=== PATIENT | male | born 1945 | race Caucasian/White ===

== ENCOUNTER 2017-11-07 09:57 | Day surgery (SDC) | payer BC, OTHER ==
[2017-11-04 08:51] VITALS: BMI 26.1
[~2017-11-07 09:57] MED LIST: LACTATED RINGERS 1,000 ML IV SCH; LIDOCAINE 1% 20 ML VIAL (10MG/ML) FOR IV START INTRADERMA PRN
[2017-11-07 10:23] VITALS: RESP 16; TEMP 98
[2017-11-07] MEDS ORDERED: PROPOFOL 10 MG/ML 20 ML VIAL IV ONE (11:09)
[2017-11-07] MEDS ORDERED: LIDOCAINE 1% INJ 10MG/ML (20 ML MDV) ONE (11:09)
[2017-11-07] MEDS ORDERED: MIDAZOLAM 2 MG/2 ML VIAL ONE (11:09)
[2017-11-07] MEDS ORDERED: fentaNYL (PF) 50 MCG/ML 2 ML AMP ONE (11:09)
[2017-11-07 11:44] VITALS: PULSE 65
--- NOTE | 2017-11-07 11:45 | P.PCN ---
Date of Procedure: 11/07/17 Procedure(s) Performed: Procedure: Total colonoscopy. Preoperative diagnosis: Screening for neoplasia. Postoperative diagnosis: Sigmoid diverticulosis with no evidence of acute diverticulitis, strictures, polyps or cancer. Preparation: HalfLytely prep. Sedation: Was provided by anesthesia. Brief clinical history: The patient is a 71-year-old male who is scheduled for this evaluation for screening for neoplasia. He had two prior exams, the last was around 6 or 7 years ago. He believes he had polyps removed on his last exam. He has no abdominal complaints, bleeding or anemia. Procedure: With the patient on his left lateral decubitus position and after informed consent and adequate sedation, the perianal area was inspected and it did not show any fissures or fistulas. There were no masses felt on digital rectal examination. The Olympus CFQ 160L video colonoscope was then inserted in the rectum in the usual fashion and advanced to the cecum. There were several diverticular orifices seen scattered in the sigmoid with no evidence of acute diverticulitis or strictures. No polyps or tumors were seen. I retroflexed the endoscope in the rectum before the endoscope was withdrawn. The patient tolerated the procedure well. Plan: The patient was reassured. Discussed dietary measures. He will follow up with you as planned and I recommended repeat exam in 5 years.
[2017-11-07 12:03] VITALS: BP 143/82
== END 2017-11-07 12:52 | disposition home or self-care (01) ==
LOC: ORWHC2ENDO 09:57
DX: Z12.11 Encounter for screening for malignant neoplasm of colon (principal); K57.30 Diverticulosis of large intestine without perforation or abscess without bleeding; I10 Essential (primary) hypertension; E78.5 Hyperlipidemia, unspecified; M19.90 Unspecified osteoarthritis, unspecified site; E89.0 Postprocedural hypothyroidism; N40.0 Benign prostatic hyperplasia without lower urinary tract symptoms; Z79.82 Long term (current) use of aspirin; Z79.899 Other long term (current) drug therapy; Z96.612 Presence of left artificial shoulder joint
CPT/HCPCS: G0121; J2250; J2001; J3010; J2704

== ENCOUNTER → 2018-01-28 | Outpatient (CLI) | payer BC, OTHER ==
--- NOTE | 2018-01-29 16:28 | XR ---
EXAMINATION TYPE: XR chest 2V DATE OF EXAM: 01/28/2018 COMPARISON: None HISTORY: 72-year-old male follow-up pneumonia TECHNIQUE: PA and lateral views FINDINGS: Heart normal size. Aorta and pulmonary vasculature within normal limits. Mild interstitial prominence . Old healed fracture deformity of the right clavicular shaft. No consolidation or pleural effusion. Partially visualized reverse left shoulder arthroplasty. IMPRESSION: Chronic-appearing changes without acute cardiopulmonary process.
== END ==
LOC: RADXRMAIN 09:50
PROVIDERS: ATTEND Family Medicine
DX: J18.9 Pneumonia, unspecified organism (principal)
CPT/HCPCS: 71046

== ENCOUNTER → 2018-02-20 | Outpatient (CLI) | payer BC ==
--- NOTE | 2018-02-20 11:47 | US ---
EXAMINATION TYPE: US carotid duplex BILAT DATE OF EXAM: 02/20/2018 COMPARISON: US 04/06/2016 CLINICAL HISTORY: G45.9 Transient Ischemic Attack, R94.31 abnormal. EXAM MEASUREMENTS: RIGHT: Peak Systolic Velocity (PSV) cm/sec ----- Right CCA: 85.0 ----- Right ICA: 204.7 ----- Right ECA: 82.2 ICA/CCA ratio: 2.4 RIGHT: End Diastole cm/sec ----- Right CCA: 29.3 ----- Right ICA: 87.8 ----- Right ECA: 19.4 LEFT: Peak Systolic Velocity (PSV) cm/sec ----- Left CCA: 87.7 ----- Left ICA: 186.0 ----- Left ECA: 43.5 ICA/CCA ratio: 2.1 LEFT: End Diastole cm/sec ----- Left CCA: 30.4 ----- Left ICA: 73.8 ----- Left ECA: 13.7 VERTEBRALS (direction of flow): Right Vertebral: Antegrade Left Vertebral: Antegrade Rhythm: Arrhythmia Bilateral soft and calcified plaque. Bilateral tortuous ICA's. Increased flow bilateral ICA's IMPRESSION: 1. Bilateral plaque as noted with estimated diameter reduction of 50-69% bilaterally. Criteria for Assigning % of Stenosis / Diameter reduction (Estimation based on the indirect measurements of the internal carotid artery velocities (ICA PSV). 1. Normal (no stenosis)=ICA PSV < 125 cm/s: ratio < 2.0: ICA EDV<40 cm/s. 2. Less than 50% stenosis=ICA PSV < 125 cm/s: ratio < 2.0: ICA EDV<40 cm/s. 3. 50 to 69% stenosis=ICA PSV of 125 to 230 cm/s: ration 2.0 ? 4.0: ICA EDV 40-100 cm/s. 4. Greater than 70% stenosis to near occlusion= ICA PSV > 230 cm/s: ratio > 4.0: ICA EDV > 100 cm/s. 5. Near occlusion= ICA PSV velocities may be low or undetectable: variable ratio and ICA EDV. 6. Total occlusion=unable to detect flow.
--- NOTE | 2018-02-21 07:42 | ECHOF ---
Referral Reason:G45.9 Transient Ischemic Attack, R94.31 abnormal MEASUREMENTS -------- HEIGHT: 185.4 cm WEIGHT: 90.7 kg BP: 110/55 IVSd: 1.3 cm (0.6 - 1.1) LVIDd: 5.6 cm (3.9 - 5.3) LVPWd: 1.3 cm (0.6 - 1.1) IVSs: 1.7 cm LVIDs: 3.6 cm LVPWs: 1.7 cm LAESV Index (A-L): 36.16 ml/m Ao Diam: 3.7 cm (2.0 - 3.7) AV Cusp: 1.9 cm (1.5 - 2.6) LA Diam: 3.5 cm (2.7 - 3.8) EPSS: 0.6 cm MV E Zach: 0.57 m/s MV DecT: 388 ms MV A Zach: 0.80 m/s MV E/A Ratio: 0.72 RAP: 5.00 mmHg RVSP: 30.02 mmHg MV EF SLOPE: 113.62 mm/s (70 - 150) MV EXCURSION: 1.93 cm (> 18.000) FINDINGS -------- Sinus rhythm with extra systolic beats. This was a technically adequate study. The left ventricular size is normal. There is mild concentric left ventricular hypertrophy. Overa ll left ventricular systolic function is low-normal with, an EF between 50 - 55 %. The right ventricle is normal in size and function. LA is moderately dilated 34-39 ml/m2 The right atrium is normal in size. Aortic valve is trileaflet and is mildly thickened. Trace amount of aortic regurgitation. There is no evidence of aortic stenosis. The mitral valve leaflets are mildly thickened. Mild mitral annular calcification present. There is trace to mild mitral regurgitation. Trace tricuspid regurgitation present. Right ventricular systolic pressure is normal at < 35 mmHg. There is no evidence of pulmonary hypertension. The pulmonic valve was not well visualized. The aortic root size is normal. Normal inferior vena cava with normal inspiratory collapse consistent with estimated right atrial pre ssure of 5 mmHg. There is no pericardial effusion. CONCLUSIONS -------- 1. Sinus rhythm with extra systolic beats. 2. This was a technically adequate study. 3. The left ventricular size is normal. 4. There is mild concentric left ventricular hypertrophy. 5. Overall left ventricular systolic function is low-normal with, an EF between 50 - 55 %. 6. LA is moderately dilated 34-39 ml/m2 7. Aortic valve is trileaflet and is mildly thickened. 8. Trace amount of aortic regurgitation. 9. The mitral valve leaflets are mildly thickened. 10. Mild mitral annular calcification present. 11. There is trace to mild mitral regurgitation. 12. Trace tricuspid regurgitation present. 13. Right ventricular systolic pressure is normal at < 35 mmHg. 14. There is no evidence of pulmonary hypertension. 15. The pulmonic valve was not well visualized. 16. The aortic root size is normal. 17. There is no pericardial effusion. COMPOUNDING SCALER: Matthias Hair RDCS
--- NOTE | 2018-02-21 07:46 | ECHOS ---
STRESS ECHOCARDIOGRAM DATE OF SERVICE: 02/20/2018 INDICATION OF THE STUDY: Chest discomfort. MEDICATIONS: BASELINE HEART RATE: 70 BASELINE BLOOD PRESSURE: 110/55 MAXIMUM HEART RATE: 128 MAXIMUM BLOOD PRESSURE: 177/81 85% MPHR: 124 100% MPHR: 146 METS: 10.3 MAXIMUM STAGE REACHED: III TOTAL EXERCISE TIME: 9 minutes CLINICAL INFORMATION: STRESS DATA: Pretesting physical examination showed a heart rate of 70, pressure is 110/55 mmHg. Baseline EKG showed sinus mechanism. The patient exercised on the treadmill according to Sarkis protocol for a total of 9 minutes and achieved 10.3 METs. Max heart rate was 128, which is about 87% of maximum predicted heart rate. Maximum blood pressure was 177/81 mmHg. Clinically, the patient did not have any symptoms of chest pain or discomfort during the testing or in the recovery. The EKG did not show any significant ST or T-wave abnormalities consistent with ischemia or meeting the criteria for ischemia. The patient did have frequent premature ventricular contraction in response to exercise. ECHOCARDIOGRAM: An echocardiogram from parasternal long axis view, parasternal short axis view, apical 4 chambers and apical 2 chambers view were obtained as the baseline images, at the peak of the heart rate as well as on recovery. The echocardiogram images showed good contractility in the left ventricular wall segments without any evidence of wall motion abnormalities consistent with ischemia. CONCLUSION: 1. Excellent exercise capacity. 2. The patient did not have any chest discomfort in response to exercise. 3. Normal EKG in response to exercise beside frequent premature ventricular contraction. 4. Normal echocardiogram in response to exercise without any evidence of wall motion abnormalities consistent with ischemia. MMODL / IJN: [id number] /
== END | disposition home or self-care (01) ==
LOC: RADUSMAIN 08:51
PROVIDERS: ATTEND Family Medicine
DX: I65.23 Occlusion and stenosis of bilateral carotid arteries (principal); I51.7 Cardiomegaly; I10 Essential (primary) hypertension
CPT/HCPCS: 93306; 93351; 93880

== ENCOUNTER 2018-05-02 00:53 | Inpatient (IN) | payer OTHER, BC, MEDICARE ==
[2018-05-02] MEDS ORDERED: MORPHINE SULFATE 2 MG/ML SYRINGE IVP STA (02:04)
[2018-05-02] MEDS ORDERED: SODIUM CHLORIDE 0.9% 1,000 ML IV STA (02:04)
[2018-05-02] MEDS ORDERED: ONDANSETRON 4 MG/2 ML VIAL IVP STA (02:04)
[2018-05-02 02:16] LABS: Basophils % (A) 0 %; Eosinophils # (A) 0.1 k/uL (0-0.7); Eosinophils % (A) 1 %; HCT 47.5 % (39.0-53.0); Lymphocytes # (A) 0.9 k/uL (1.0-4.8); Lymphocytes % (A) 11 %; MCHC 33.6 g/dL (31.0-37.0); MCV 89.2 fL (80.0-100.0); Mean Platelet Volume 7.6; Monocytes # (A) 0.2 k/uL (0-1.0); Monocytes % (A) 3 %; Neutrophils # (A) 6.8 k/uL (1.3-7.7); Neutrophils % (A) 84 %; Platelet Count 215 k/uL (150-450); RBC 5.33 m/uL (4.30-5.90); RDW 12.6 % (11.5-15.5)
[2018-05-02 02:27] LABS: ALT 30 U/L (21-72); AST 28 U/L (17-59); Albumin 4.5 g/dL (3.5-5.0); Alkaline Phosphatase 82 U/L (38-126); Amylase 98 U/L (30-110); Anion Gap 8 mmol/L; Blood Urea Nitrogen 18 mg/dL (9-20); Carbon Dioxide 28 mmol/L (22-30); Chloride 104 mmol/L (98-107); Glucose 116 mg/dL (74-99); Lipase 58 U/L (23-300); Potassium 4.4 mmol/L (3.5-5.1); Sodium 140 mmol/L (137-145); Total Bilirubin 0.7 mg/dL (0.2-1.3); Total Protein 7.3 g/dL (6.3-8.2)
[2018-05-02 02:46] LABS: Amorphous Sediment,Urine Rare /hpf; Appearance,Urine Clear (Clear); Bacteria,Urine Rare /hpf; Bilirubin,Urine Negative (Negative); Blood,Urine Negative (Negative); Color,Urine Yellow; Glucose,Urine (UA) Negative (Negative); Ketones,Urine 1+ (Negative); Leukocyte Esterase,Urine Negative (Negative); Mucus,Urine Occasional /hpf; Nitrite,Urine Negative (Negative); Protein,Urine 1+ (Negative); RBC,Urine 1 /hpf (0-5); Specific Gravity,Urine 1.021 (1.001-1.035); Urobilinogen,Urine <2.0 mg/dL (<2.0); WBC,Urine 1 /hpf (0-5)
--- NOTE | 2018-05-02 03:11 | CT ---
EXAMINATION TYPE: CT abdomen pelvis w con DATE OF EXAM: 05/02/2018 COMPARISON: 08/24/2011 HISTORY: Prior on 2010, diffuse abd pain and bloating history of prior obstruction CT DLP: 996.30 mGycm Automated exposure control for dose reduction was used. TECHNIQUE: Helical acquisition of images was performed from the lung bases through the pelvis. CONTRAST: Performed without Oral Contrast and with IV Contrast, patient injected with 100 mL of Isovue 300. FINDINGS: Lung bases are clear. There is no pleural effusion. Heart size is normal. Liver and spleen appear normal. Bile ducts are not dilated. Gallbladder appears normal. There is no p ancreatic mass. There is no adrenal mass. Kidneys have normal size and contour. There is no hydronephrosis. There is 3 cm cortical cyst lateral right kidney. There is no retroperitoneal adenopathy. There are multiple mildly dilated loops of air and fluid-filled small bowel. These measure up to 3.3 cm. Appendix is not seen. There is no sign of appendicitis. Bladder distends smoothly. There is no pelvic mass. There are multiple sigmoid diverticula. There is minimal fat stranding around the proximal sigmoid colon. There is no ascites. There is no sign of karla e air. 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 IMPRESSION: THERE IS SIGMOID DIVERTICULOSIS. THERE IS EVIDENCE OF MINIMAL DIVERTICULITIS IN THE PROXIMAL SIGMOID COLON. THERE ARE MILDLY DILATED SMALL BOWEL LOOPS WITHOUT A TRANSITION POINT and THIS IS CONSISTENT WITH ILE US. PARTIAL MECHANICAL OBSTRUCTION IS NOT ENTIRELY EXCLUDED. Abnormalities appear new compared to last exam. Right renal cyst is increased compared to old exam.
--- NOTE | 2018-05-02 03:33 | ED ---
General Adult HPI - General Source: patient, RN notes reviewed Mode of arrival: ambulatory Limitations: no limitations <Liu Orozco - Last Filed: 05/02/18 03:53> <Chivo Leary - Last Filed: 05/02/18 04:10> - General Chief complaint: Abdominal Pain Stated complaint: ABD PAIN,OBSTRUCTION Time Seen by Provider: 05/02/18 01:40 - History of Present Illness Initial comments: 72-year-old male presents to the emergency department for a chief complaint of abdominal pain times one day. Patient states he got home from work and went to make dinner when he noticed pain in the middle of his abdomen. Patient states his pain is consistent with previous bowel obstructions. Patient states he has had multiple bowel obstructions in the past. Patient made himself vomit about 10 times to try to decrease the pain in the abdomen. Patient last had a bowel movement earlier today. Patient has no other complaints at this time including shortness of breath, chest pain, abdominal pain, nausea or vomiting, headache, or visual changes. (Liu Orozco) - Related Data Home Medications Medication Instructions Recorded Confirmed Aspirin EC [Ecotrin Low Dose] 81 mg PO HS 06/08/16 11/07/17 Dutasteride [Avodart] 0.5 mg PO DAILY 06/08/16 11/07/17 Levothyroxine Sodium [Synthroid] 175 mcg PO DAILY 06/08/16 11/07/17 Losartan Potassium [Cozaar] 100 mg PO DAILY 06/08/16 11/07/17 Multivitamin/Iron/Folic Acid 2 tab PO DAILY 06/08/16 11/07/17 [Centrum Complete Multivit Tab] Pravastatin Sodium 20 mg PO HS 06/08/16 11/07/17 Tamsulosin HCl 0.4 mg PO DAILY 06/08/16 11/07/17 amLODIPine BESYLATE [Norvasc] 5 mg PO DAILY 06/08/16 11/07/17 Allergies Allergy/AdvReac Type Severity Reaction Status Date / Time No Known Allergies Allergy Verified 11/07/17 10:17 Review of Systems ROS Other: All systems not noted in ROS Statement are negative. <Liu Orozco - Last Filed: 05/02/18 03:53> ROS Other: All systems not noted in ROS Statement are negative. <Chivo Leary - Last Filed: 05/02/18 04:10> ROS Statement: Those systems with pertinent positive or pertinent negative responses have been documented in the HPI. Past Medical History Past Medical History: Hyperlipidemia, Hypertension, Osteoarthritis (OA), Thyroid Disorder History of Any Multi-Drug Resistant Organisms: None Reported Past Surgical History: Appendectomy Additional Past Surgical History / Comment(s): thyroidectomy Past Anesthesia/Blood Transfusion Reactions: No Reported Reaction Past Psychological History: No Psychological Hx Reported Smoking Status: Never smoker Past Alcohol Use History: None Reported Past Drug Use History: None Reported - Past Family History Mother Family Medical History: No Reported History <Liu Orozco - Last Filed: 05/02/18 03:53> General Exam Limitations: no limitations General appearance: alert, in no apparent distress Head exam: Present: atraumatic, normocephalic, normal inspection Eye exam: Present: normal appearance. Absent: scleral icterus, conjunctival injection ENT exam: Present: normal exam, mucous membranes moist Neck exam: Present: normal inspection, full ROM. Absent: tenderness, meningismus, lymphadenopathy Respiratory exam: Present: normal lung sounds bilaterally. Absent: respiratory distress, wheezes, rales, rhonchi, stridor Cardiovascular Exam: Present: regular rate, normal rhythm, normal heart sounds. Absent: systolic murmur, diastolic murmur, rubs, gallop, clicks GI/Abdominal exam: Present: soft, tenderness (tenderness around the umbilicus), diminished bowel sounds. Absent: distended, guarding, rebound, rigid, pulsatile mass, hernia Neurological exam: Present: alert, oriented X3, CN II-XII intact Psychiatric exam: Present: normal affect, normal mood Skin exam: Present: warm, dry, intact, normal color. Absent: rash <Liu Orozco - Last Filed: 05/02/18 03:53> Vital Signs 05/02/18 01:15 Temperature 97.1 F L Pulse Rate 84 Respiratory 16 Rate Blood Pressure 132/90 O2 Sat by Pulse 97 Oximetry EKG Findings - EKG Comments: EKG Findings:: Normal sinus rhythm, ventricular rate 90, [place] interval 188, QRS ratio [address] elevation or depression <Liu Orozco - Last Filed: 05/02/18 03:53> Medical Decision Making - Lab Data Result diagrams: 05/02/18 01:26 05/02/18 01:26 <Liu Orozco - Last Filed: 05/02/18 03:53> - Lab Data Result diagrams: 05/02/18 01:26 05/02/18 01:26 <Chivo Leary - Last Filed: 05/02/18 04:10> - Medical Decision Making 72-year-old male presents to the emergency department for a chief complaint of abdominal pain times one day. Patient states pain is consistent with past bowel obstructions. Patient made himself vomit today to try to decrease the pain. At this time patient denies nausea. Patient afebrile and denies any fevers at home. On exam patient has mid abdominal tenderness around umbilicus. CBC and CMP unremarkable. Urine shows no evidence of infection or blood. CT shows evidence of minimal diverticulitis in the proximal sigmoid colon. There are mildly dilated small bowel loops consistent with ileus. Partial mechanical obstruction not entirely excluded. Patient will be admitted to the hospital for further management and pain control. Surgery consulted. Patient will be treated with Unasyn for the diverticulitis. (Liu Orozco) Patient reevaluated by myself, Dr. Leary. Patient resting comfortably in bed. Abdomen is soft with mild diffuse discomfort. Patient updated and results and plan. Case was discussed in detail with practitioner Lee, covering for Dr. Cheng, who will admit. Consult for surgical call. I did review and agree with PAs findings. This includes all diagnostic interpretation and treatment plan. (Chivo Leary) - Lab Data Lab Results 05/02/18 05/02/18 05/02/18 Range/Units 01:26 01:26 02:15 WBC 8.0 (3.8-10.6) k/uL RBC 5.33 (4.30-5.90) m/uL Hgb 16.0 (13.0-17.5) gm/dL Hct 47.5 (39.0-53.0) % MCV 89.2 (80.0-100.0) fL MCH 30.0 (25.0-35.0) pg MCHC 33.6 (31.0-37.0) g/dL RDW 12.6 (11.5-15.5) % Plt Count 215 (150-450) k/uL Neutrophils % 84 % Lymphocytes % 11 % Monocytes % 3 % Eosinophils % 1 % Basophils % 0 % Neutrophils # 6.8 (1.3-7.7) k/uL Lymphocytes # 0.9 L (1.0-4.8) k/uL Monocytes # 0.2 (0-1.0) k/uL Eosinophils # 0.1 (0-0.7) k/uL Basophils # 0.0 (0-0.2) k/uL Sodium 140 (137-145) mmol/L Potassium 4.4 (3.5-5.1) mmol/L Chloride 104 (98-107) mmol/L Carbon Dioxide 28 (22-30) mmol/L Anion Gap 8 mmol/L BUN 18 (9-20) mg/dL Creatinine 0.70 (0.66-1.25) mg/dL Est GFR (CKD-EPI)AfAm >90 (>60 ml/min/1.73 sqM) Est GFR (CKD-EPI)NonAf >90 (>60 ml/min/1.73 sqM) Glucose 116 H (74-99) mg/dL Calcium 10.0 (8.4-10.2) mg/dL Total Bilirubin 0.7 (0.2-1.3) mg/dL AST 28 (17-59) U/L ALT 30 (21-72) U/L Alkaline Phosphatase 82 (38-126) U/L Total Protein 7.3 (6.3-8.2) g/dL Albumin 4.5 (3.5-5.0) g/dL Amylase 98 (30-110) U/L Lipase 58 (23-300) U/L Urine Color Yellow Urine Appearance Clear (Clear) Urine pH 7.0 (5.0-8.0) Ur Specific [place] 1.021 (1.001-1.035) Urine Protein 1+ H (Negative) Urine Glucose (UA) Negative (Negative) Urine Ketones 1+ H (Negative) Urine Blood Negative (Negative) Urine Nitrite Negative (Negative) Urine Bilirubin Negative (Negative) Urine Urobilinogen <2.0 (<2.0) mg/dL Ur Leukocyte Esterase Negative (Negative) Urine RBC 1 (0-5) /hpf Urine WBC 1 (0-5) /hpf Amorphous Sediment Rare H (None) /hpf Urine Bacteria Rare H (None) /hpf Urine Mucus Occasional H (None) /hpf Disposition Is patient prescribed a controlled substance at d/c from ED?: No Time of Disposition: 03:56 <Liu Orozco - Last Filed: 05/02/18 03:53> <Chivo Leary - Last Filed: 05/02/18 04:10> Clinical Impression: Ileus, Diverticulitis Disposition: ADMITTED IP TO THIS HOSP Condition: Good Referrals: Julian Cheng MD [Primary Care Provider] - 1-2 days
[2018-05-02] MEDS ORDERED: NALOXONE 0.4 MG/ML 1 ML VIAL IV PRN (04:16)
[2018-05-02] MEDS ORDERED: ONDANSETRON 4 MG/2 ML VIAL IVP PRN (04:16)
[2018-05-02] MEDS: AMPICILLIN-SULBACTAM 3 GM in SODIUM CHLORIDE 0.9% 100 ML IVPB SCH ×4 (04:47→23:59)
[2018-05-02] MEDS: SODIUM CHLORIDE 0.9% 1,000 ML IV SCH ×3 (04:47→22:13)
[2018-05-02] MEDS: LEVOTHYROXINE 75 MCG TAB PO SCH (06:25)
[2018-05-02] MEDS: LEVOTHYROXINE 100 MCG TAB PO SCH (06:25)
[2018-05-02] MEDS: PANTOPRAZOLE 40 MG/10 ML VIAL IVP SCH ×2 (07:22→07:49)
[2018-05-02] MEDS: LOSARTAN 50 MG TAB PO SCH (07:53)
[2018-05-02] MEDS: TAMSULOSIN 0.4 MG CAP.ER.24H PO SCH (07:53)
[2018-05-02] MEDS: amLODIPine 5 MG TAB PO SCH (07:53)
[2018-05-02] MEDS: FINASTERIDE 5 MG TAB PO SCH (07:56)
[2018-05-02] MEDS ORDERED: FINASTERIDE 5 MG TAB PO SCH (09:00)
[2018-05-02] MEDS: MORPHINE SULFATE 4 MG/ML SYRINGE IV PRN ×3 (10:41→19:43)
[2018-05-02] MEDS: MULTIVITAMINS, THERA 1 EACH TAB PO SCH (11:03)
[2018-05-02] MEDS ORDERED: ACETAMINOPHEN IV (For NPO) 1,000 MG in EMPTY BAG 1 BAG IVPB ONE (11:05)
--- NOTE | 2018-05-02 11:26 | P.GSCN ---
History of Present Illness Consult date: 05/02/18 Reason for Consult: Abdominal pain History of present illness: 72-year-old male presented to the emergency room on the day of admission with a chief complaint of developing abdominal bloating diffuse abdominal pain nausea vomiting abdominal cramping. Patient states he has had prior episodes where he has been treated for a bowel obstruction. He stated the symptoms felt similar. CAT scan done of the abdomen and pelvis with contrast on admission in summary did report indicated no pelvic mass. No ascites no free air sigmoid diverticulosis evidence of minimal diverticulitis in the proximal sigmoid colon. Mildly dilated small bowel loops without a transition point consistent with an ileus. Partial mechanical obstruction not entirely excluded. Patient did have a colonoscopy done in November 2017. Reviewing the report diverticulitis scattered throughout the sigmoid with no evidence of acute diverticulitis or strictures. Patient states he was seen by a dietitian and has adhered to a recommendations for addressing diverticulitis disease patient currently resting in bed states he has abdominal discomfort the abdomen is mildly distended with hypo-angel states he felt a nausea sensation not passing gas not belching states did have a bowel movement yesterday no blood noted in stool Prior surgical history includes appendectomy, hernia repair lysis of adhesions. Review of Systems Essentially unremarkable except as mentioned in the present illness Past Medical History Past Medical History: Hyperlipidemia, Hypertension, Osteoarthritis (OA), Thyroid Disorder History of Any Multi-Drug Resistant Organisms: None Reported Past Surgical History: Appendectomy Additional Past Surgical History / Comment(s): thyroidectomy Past Anesthesia/Blood Transfusion Reactions: No Reported Reaction Past Psychological History: No Psychological Hx Reported Smoking Status: Never smoker Past Alcohol Use History: None Reported Past Drug Use History: None Reported - Past Family History Mother Family Medical History: No Reported History Medications and Allergies Home Medications Medication Instructions Recorded Confirmed Type Aspirin EC [Ecotrin Low Dose] 81 mg PO HS 06/08/16 05/02/18 History Dutasteride [Avodart] 0.5 mg PO DAILY 06/08/16 05/02/18 History Levothyroxine Sodium [Synthroid] 175 mcg PO DAILY 06/08/16 05/02/18 History Losartan Potassium [Cozaar] 100 mg PO DAILY 06/08/16 05/02/18 History Multivitamin/Iron/Folic Acid 2 tab PO DAILY 06/08/16 05/02/18 History [Centrum Complete Multivit Tab] Pravastatin Sodium 20 mg PO HS 06/08/16 05/02/18 History Tamsulosin HCl 0.4 mg PO DAILY 06/08/16 05/02/18 History amLODIPine BESYLATE [Norvasc] 5 mg PO DAILY 06/08/16 05/02/18 History Allergies Allergy/AdvReac Type Severity Reaction Status Date / Time No Known Allergies Allergy Verified 05/02/18 09:00 Surgical - Exam Vital Signs Temp Pulse Resp BP Pulse Ox 97.1 F L 84 16 132/90 97 05/02/18 01:15 05/02/18 01:15 05/02/18 01:15 05/02/18 01:15 05/02/18 01:15 GENERAL APPEARANCE: 72-year-old patient is alert, reports having bloating sensation to the abdomen VITAL SIGNS: Reviewed HEENT: Head is normocephalic and atraumatic. Pupils are equal and reactive. The nares are patent. Oropharynx is clear without lesions. NECK: Supple without lymphadenopathy. Traches midline. HEART: S1, S2. Regular rate and rhythm. Denying chest pain no murmur LUNGS: No crackles or wheezes are heard. Adequate air movement bilaterally ABDOMEN: Soft, diffuse tenderness mildly distended few hypoactive bowel sounds. No peritoneal signs. No palpable organomegaly or masses. States no stool not passing gas nausea sensation no emesis EXTREMITIES: Normal skin color and turgor. No cyanosis, rash, ulceration, clubbing or edema. Radial pedal pulses are 2/4 bilaterally. NEUROLOGICAL: No focal deficits. Strength and sensation are grossly intact. Results - Labs 05/02/18 01:26 05/02/18 01:26 Abnormal Lab Results - Last 24 Hours (Table) 05/02/18 05/02/18 05/02/18 Range/Units 01:26 01:26 02:15 Lymphocytes # 0.9 L (1.0-4.8) k/uL Glucose 116 H (74-99) mg/dL Urine Protein 1+ H (Negative) Urine Ketones 1+ H (Negative) Amorphous Sediment Rare H (None) /hpf Urine Bacteria Rare H (None) /hpf Urine Mucus Occasional H (None) /hpf Diabetes panel 05/02/18 Range/Units 01:26 Sodium 140 (137-145) mmol/L Potassium 4.4 (3.5-5.1) mmol/L Chloride 104 (98-107) mmol/L Carbon Dioxide 28 (22-30) mmol/L BUN 18 (9-20) mg/dL Creatinine 0.70 (0.66-1.25) mg/dL Glucose 116 H (74-99) mg/dL Calcium 10.0 (8.4-10.2) mg/dL AST 28 (17-59) U/L ALT 30 (21-72) U/L Alkaline Phosphatase 82 (38-126) U/L Total Protein 7.3 (6.3-8.2) g/dL Albumin 4.5 (3.5-5.0) g/dL Calcium panel 05/02/18 Range/Units 01:26 Calcium 10.0 (8.4-10.2) mg/dL Albumin 4.5 (3.5-5.0) g/dL Pituitary panel 05/02/18 Range/Units 01:26 Sodium 140 (137-145) mmol/L Potassium 4.4 (3.5-5.1) mmol/L Chloride 104 (98-107) mmol/L Carbon Dioxide 28 (22-30) mmol/L BUN 18 (9-20) mg/dL Creatinine 0.70 (0.66-1.25) mg/dL Glucose 116 H (74-99) mg/dL Calcium 10.0 (8.4-10.2) mg/dL Adrenal panel 05/02/18 Range/Units 01:26 Sodium 140 (137-145) mmol/L Potassium 4.4 (3.5-5.1) mmol/L Chloride 104 (98-107) mmol/L Carbon Dioxide 28 (22-30) mmol/L BUN 18 (9-20) mg/dL Creatinine 0.70 (0.66-1.25) mg/dL Glucose 116 H (74-99) mg/dL Calcium 10.0 (8.4-10.2) mg/dL Total Bilirubin 0.7 (0.2-1.3) mg/dL AST 28 (17-59) U/L ALT 30 (21-72) U/L Alkaline Phosphatase 82 (38-126) U/L Total Protein 7.3 (6.3-8.2) g/dL Albumin 4.5 (3.5-5.0) g/dL Assessment and Plan Assessment: Impression Present on admission diffuse abdominal pain nausea vomiting likely due to partial small bowel obstruction CAT scan of the abdomen and pelvis show evidence of minimal diverticulitis and proximal sigmoid colon with mildly dilated small bowel loops consistent with ileus History of prior small bowel obstructions A recent colonoscopy November 2017 report indicate diverticulosis no diverticulitis Plan IV Flagyl and Unasyn as ordered Pain control DVT and GI prophylaxis IV fluid hydration Insert nasogastric tube connected to suction Repeat labs in the morning Will follow with you with further surgical recommendations pending clinical course Surgical consultation note dictated for The above impression and plan of care have been discussed and directed by signing physician. Lianne Loredo nurse practitioner acting as scribe for signing physician.
--- NOTE | 2018-05-02 12:02 | P.HPIM ---
History of Present Illness 72-year-old male presented to the emergency room after 24 hours of increased abdominal pain. Patient has had history of small bowel obstruction with ileus. Also history of diverticulosis. Patient is to be seen by surgery Review of Systems Gastrointestinal: Reports abdominal pain, Reports bloating, Reports vomiting Past Medical History Past Medical History: Hyperlipidemia, Hypertension, Osteoarthritis (OA), Thyroid Disorder History of Any Multi-Drug Resistant Organisms: None Reported Past Surgical History: Appendectomy Additional Past Surgical History / Comment(s): thyroidectomy Past Anesthesia/Blood Transfusion Reactions: No Reported Reaction Past Psychological History: No Psychological Hx Reported Smoking Status: Never smoker Past Alcohol Use History: None Reported Past Drug Use History: None Reported - Past Family History Mother Family Medical History: No Reported History Medications and Allergies Home Medications Medication Instructions Recorded Confirmed Type Aspirin EC [Ecotrin Low Dose] 81 mg PO HS 06/08/16 05/02/18 History Dutasteride [Avodart] 0.5 mg PO DAILY 06/08/16 05/02/18 History Levothyroxine Sodium [Synthroid] 175 mcg PO DAILY 06/08/16 05/02/18 History Losartan Potassium [Cozaar] 100 mg PO DAILY 06/08/16 05/02/18 History Multivitamin/Iron/Folic Acid 2 tab PO DAILY 06/08/16 05/02/18 History [Centrum Complete Multivit Tab] Pravastatin Sodium 20 mg PO HS 06/08/16 05/02/18 History Tamsulosin HCl 0.4 mg PO DAILY 06/08/16 05/02/18 History amLODIPine BESYLATE [Norvasc] 5 mg PO DAILY 06/08/16 05/02/18 History Allergies Allergy/AdvReac Type Severity Reaction Status Date / Time No Known Allergies Allergy Verified 05/02/18 09:00 Physical Exam Vitals: Vital Signs Temp Pulse Pulse Resp BP BP Pulse Ox 05/02/18 06:22 98.3 F 70 18 150/83 98 05/02/18 04:29 98.3 F 79 16 149/90 98 05/02/18 01:15 97.1 F L 84 16 132/90 97 Intake and Output 05/01/18 05/02/18 05/02/18 22:59 06:59 14:59 Other: Voiding Method Toilet # Voids 1 Weight 89.176 kg - Constitutional General appearance: mild distress - EENT Eyes: PERRLA Ears: bilateral: normal - Neck Neck: normal ROM - Respiratory Respiratory: bilateral: CTA - Cardiovascular Rhythm: regular - Gastrointestinal General gastrointestinal: hyperactive bowel sounds, tenderness Localized gastrointestinal: tender: diffuse - Integumentary Integumentary: normal - Neurologic Neurologic: CNII-XII intact - Musculoskeletal Musculoskeletal: gait normal - Psychiatric Psychiatric: A&O x's 3, appropriate affect, intact judgment & insight Results CBC & Chem 7: 05/02/18 01:26 05/02/18 01:26 Labs: Abnormal Lab Results - Last 24 Hours (Table) 05/02/18 05/02/18 05/02/18 Range/Units 01:26 01:26 02:15 Lymphocytes # 0.9 L (1.0-4.8) k/uL Glucose 116 H (74-99) mg/dL Urine Protein 1+ H (Negative) Urine Ketones 1+ H (Negative) Amorphous Sediment Rare H (None) /hpf Urine Bacteria Rare H (None) /hpf Urine Mucus Occasional H (None) /hpf CT scan - abdomen: report reviewed Thrombosis Risk Factor Assmnt - Choose All That Apply Any of the Below Risk Factors Present?: No Other Risk Factors: Yes Each Risk Factor Represents 2 Points: Age 61-74 years Other congenital or acquired thrombophilia - If yes, enter type in comment: No Thrombosis Risk Factor Assessment Total Risk Factor Score: 2 Thrombosis Risk Factor Assessment Level: Low Risk Assessment and Plan Plan: Assessment Abdominal pain with ileus small bowel obstruction Diverticulitis Hyperlipidemia Hypertension Osteoarthritis Hypothyroidism Plan Continue consultation with surgery to have NG tube inserted Patient on Unasyn and Flagyl
[2018-05-02] MEDS: metroNIDAZOLE-NS PMX 500 MG in SALINE 1 100ML.BAG IVPB SCH ×2 (14:30→18:05)
--- NOTE | 2018-05-02 17:18 | XR ---
EXAMINATION TYPE: XR chest 1V DATE OF EXAM: 05/02/2018 COMPARISON: NONE HISTORY: Nasogastric tube placement TECHNIQUE: Single frontal view of the chest is obtained. FINDINGS: Nasogastric tube is coiled within the distal esophagus with its distal tip coursing upward within the mid thoracic esophagus. Cardiomediastinal silhouette is enlarged which may be exaggerated due to the portable nature of examination. Lungs appear clear. Partial visualization of the left art hroplasty is seen. IMPRESSION: Coiling of the enteric tube at the distal esophagus with the distal aspect of the enteri c tube oriented upward within the mid thoracic esophagus. Replacement is recommended.
--- NOTE | 2018-05-02 18:31 | XR ---
EXAMINATION TYPE: XR chest 1V portable DATE OF EXAM: 05/02/2018 COMPARISON: 05/02/2018 5:04 PM HISTORY: Endotracheal tube placement TECHNIQUE: Single frontal view of the chest is obtained. FINDINGS: There is repositioning of the endotracheal tube coursing inferiorly appropriately, however the fenestrated portion is at the gastroesophageal junction and recommendation is for advancement of at least 2 cm. Remainder the chest is unchanged in comparison to the exam less than 1 hour prior. IMPRESSION: Repositioning of the enteric tube, now coursing appropriately caudal. However the fenest rated portion is at the gastroesophageal junction and recommendation is for advancement at least 2 cm .
[2018-05-02] MEDS: ASPIRIN 81 MG PO SCH (22:11)
[2018-05-02] MEDS: PRAVASTATIN SODIUM 20 MG TAB PO SCH (22:11)
[2018-05-03] MEDS: metroNIDAZOLE-NS PMX 500 MG in SALINE 1 100ML.BAG IVPB SCH ×4 (01:05→17:39)
[2018-05-03] MEDS: SODIUM CHLORIDE 0.9% 1,000 ML IV SCH ×3 (06:03→22:30)
[2018-05-03] MEDS: AMPICILLIN-SULBACTAM 3 GM in SODIUM CHLORIDE 0.9% 100 ML IVPB SCH ×4 (06:03→23:37)
[2018-05-03] MEDS: LEVOTHYROXINE 75 MCG TAB PO SCH (06:26)
[2018-05-03] MEDS: LEVOTHYROXINE 100 MCG TAB PO SCH (06:26)
[2018-05-03] MEDS: FINASTERIDE 5 MG TAB PO SCH (09:35)
[2018-05-03] MEDS: MULTIVITAMINS, THERA 1 EACH TAB PO SCH (09:35)
[2018-05-03] MEDS: LOSARTAN 50 MG TAB PO SCH (09:35)
[2018-05-03] MEDS: TAMSULOSIN 0.4 MG CAP.ER.24H PO SCH (09:35)
[2018-05-03] MEDS: amLODIPine 5 MG TAB PO SCH (09:35)
[2018-05-03] MEDS: PANTOPRAZOLE 40 MG/10 ML VIAL IVP SCH (09:40)
--- NOTE | 2018-05-03 11:06 | P.PN ---
Subjective Patient appears less distended states she's able to pass some gas. Continues with NG tube to suction Objective - Vital Signs Vital signs: Vital Signs Temp 97.0 F L 05/03/18 05:15 Pulse 58 L 05/03/18 05:15 Resp 16 05/03/18 05:15 BP 123/79 05/03/18 05:15 Pulse Ox 96 05/03/18 05:15 Intake & Output 05/02/18 05/03/18 05/03/18 18:59 06:59 18:59 Output Total 600 Balance -600 Output: Urine 600 Other: Voiding Method Toilet # Voids 2 2 - Constitutional General appearance: Present: mild distress - EENT Eyes: Present: PERRLA Ears: bilateral: normal - Respiratory Respiratory: bilateral: CTA - Cardiovascular Rhythm: regular - Gastrointestinal General gastrointestinal: Present: distended, normal bowel sounds, soft - Integumentary Integumentary: Present: normal - Neurologic Neurologic: Present: CNII-XII intact - Musculoskeletal Musculoskeletal: Present: gait normal - Psychiatric Psychiatric: Present: A&O x's 3, appropriate affect, intact judgment & insight - Labs CBC & Chem 7: 05/02/18 01:26 05/02/18 01:26 - Imaging and Cardiology Chest x-ray: report reviewed Assessment and Plan Plan: Assessment Ileus with small bowel obstruction has NG tube Diverticulitis mild History of hyperlipidemia Hypertension Osteoarthritis Hypothyroidism Plan continue consultation with surger continues with NG tube Patient continues on Unasyn and Flagyl
--- NOTE | 2018-05-03 11:11 | XR ---
EXAMINATION TYPE: XR abdomen complete w decub DATE OF EXAM: 05/03/2018 COMPARISON: 05/01/2018 CT abdomen pelvis HISTORY: Bowel obstruction. Follow-up exam. TECHNIQUE: Supine, upright, and left side down lateral decubitus views of the abdomen are obtained. FINDINGS: Enteric tube is appropriately placed with its fenestrated portion beyond the gastroesophage al junction best appreciated on the decubitus image. No pneumoperitoneum is seen on the decubitus libertad ge nor on the upright image. Gaseous distended loops of large and small bowel are seen without dilata tion of either. Small amount retained colonic stool is present. Surgical clips are noted within the l eft hemipelvis. S-shaped scoliotic curvature of the thoracolumbar spine is partially visualized with extensive degenerative changes of the lumbar spine and moderate femoral acetabular arthropathy. Lung bases are well aerated. IMPRESSION: Appropriately placed enteric tube with no dilated large or small bowel loops. Nonobstructive bowel ga s pattern. No evidence of pneumoperitoneum.
--- NOTE | 2018-05-03 18:57 | P.PN ---
Progress Note - Text Progress Note Date: 05/03/18 The patient had his nasogastric tube removed earlier today. He states he feels well. He denies any significant abdominal pain. On exam is lesser stable. His abdomen soft. Patient's ileus is resolved. He'll will have his diet advanced.
[2018-05-03] MEDS: ASPIRIN 81 MG PO SCH (21:27)
[2018-05-03] MEDS: PRAVASTATIN SODIUM 20 MG TAB PO SCH (22:27)
[2018-05-04] MEDS: metroNIDAZOLE-NS PMX 500 MG in SALINE 1 100ML.BAG IVPB SCH ×3 (01:25→11:18)
[2018-05-04] MEDS: AMPICILLIN-SULBACTAM 3 GM in SODIUM CHLORIDE 0.9% 100 ML IVPB SCH ×2 (05:12→10:34)
[2018-05-04] MEDS: SODIUM CHLORIDE 0.9% 1,000 ML IV SCH (06:40)
[2018-05-04] MEDS: LEVOTHYROXINE 100 MCG TAB PO SCH (06:40)
[2018-05-04] MEDS: LEVOTHYROXINE 75 MCG TAB PO SCH (06:40)
[2018-05-04 07:37] VITALS: BP 141/89; PULSE 60; RESP 18; TEMP 97.4
[2018-05-04] MEDS: LOSARTAN 50 MG TAB PO SCH (08:33)
[2018-05-04] MEDS: PANTOPRAZOLE 40 MG/10 ML VIAL IVP SCH (08:33)
[2018-05-04] MEDS: TAMSULOSIN 0.4 MG CAP.ER.24H PO SCH (08:33)
[2018-05-04] MEDS: FINASTERIDE 5 MG TAB PO SCH (08:33)
[2018-05-04] MEDS: amLODIPine 5 MG TAB PO SCH (08:33)
[2018-05-04] MEDS: MULTIVITAMINS, THERA 1 EACH TAB PO SCH (08:33)
--- NOTE | 2018-05-04 11:11 | P.DS ---
Providers Date of admission: 05/02/18 03:56 Expected date of discharge: 05/04/18 Attending physician: Julian Cheng Consults: 05/02/18 04:10 Consult Physician Urgent Consulting Provider: Chaim Sue Consult Reason/Comments: diverticulitis, r/o bowel obstruction Do you want consulting provider notified?: Yes Primary care physician: Julian Cheng Hospital Course: [id number] male was admitted through the emergency room with complaints of abdominal pain and distention. Patient has had history of ileus patient found to have mild diverticulitis. Patient was evaluated by ischemia. Patient had NG tube ileus resolved stable for discharge Assessment Ileus Diverticulitis mild Partial small bowel obstruction Hyperlipidemia hypertension osteoarthritis Hypothyroidism Plan By mouth Flagyl and Levaquin continue Follow-up with family physician Dr. Julian Cheng and surgeon Dr. Dalton Patient Condition at Discharge: Good Plan - Discharge Summary Discharge Rx Participant: No New Discharge Prescriptions: New Levofloxacin [Levaquin] 500 mg PO DAILY 7 Days #7 tab metroNIDAZOLE [Flagyl] 500 mg PO Q8HR 7 Days #21 tab Continue Multivitamin/Iron/Folic Acid [Centrum Complete Multivit Tab] 2 tab PO DAILY Aspirin EC [Ecotrin Low Dose] 81 mg PO HS amLODIPine BESYLATE [Norvasc] 5 mg PO DAILY Pravastatin Sodium 20 mg PO HS Losartan Potassium [Cozaar] 100 mg PO DAILY Tamsulosin HCl 0.4 mg PO DAILY Levothyroxine Sodium [Synthroid] 175 mcg PO DAILY Dutasteride [Avodart] 0.5 mg PO DAILY Discharge Medication List Aspirin EC [Ecotrin Low Dose] 81 mg PO HS 06/08/16 [History] Dutasteride [Avodart] 0.5 mg PO DAILY 06/08/16 [History] Levothyroxine Sodium [Synthroid] 175 mcg PO DAILY 06/08/16 [History] Losartan Potassium [Cozaar] 100 mg PO DAILY 06/08/16 [History] Multivitamin/Iron/Folic Acid [Centrum Complete Multivit Tab] 2 tab PO DAILY 03/18 [History] Pravastatin Sodium 20 mg PO HS 06/08/16 [History] Tamsulosin HCl 0.4 mg PO DAILY 06/08/16 [History] amLODIPine BESYLATE [Norvasc] 5 mg PO DAILY 06/08/16 [History] Levofloxacin [Levaquin] 500 mg PO DAILY 7 Days #7 tab 05/04/18 [Rx] metroNIDAZOLE [Flagyl] 500 mg PO Q8HR 7 Days #21 tab 05/04/18 [Rx] Follow up Appointment(s)/Referral(s): Julian Cheng MD [Primary Care Provider] - 1-2 days Chaim Sue MD [STAFF PHYSICIAN] - 1 Week
== END 2018-05-04 11:55 | disposition home or self-care (01) | DRG 389 ==
LOC: EC 00:53 → 4MS4W 03:56
PROVIDERS: ADMIT Family Medicine; ATTEND Family Medicine
DX: K56.7 Ileus, unspecified (principal); K57.92 Diverticulitis of intestine, part unspecified, without perforation or abscess without bleeding; E78.5 Hyperlipidemia, unspecified; I10 Essential (primary) hypertension; M19.90 Unspecified osteoarthritis, unspecified site; E89.0 Postprocedural hypothyroidism; Z90.49 Acquired absence of other specified parts of digestive tract; Z79.82 Long term (current) use of aspirin; Z79.899 Other long term (current) drug therapy
CPT/HCPCS: 36415; 71045; 74021; 74177; 80053; 81001; 82150; 83690; 85025; 93005; 96361; 96374; 96375; 99285

== ENCOUNTER → 2020-07-23 | Outpatient (CLI) | payer OTHER | END | disposition home or self-care (01) | LOC: LABWHC1 13:40 | PROVIDERS: ATTEND Nurse Practitioner | DX: Z20.828 Contact with and (suspected) exposure to other viral communicable diseases (principal) | CPT/HCPCS: U0003; C9803 ==

== ENCOUNTER 2020-08-07 18:38 | Emergency (ER) | payer OTHER ==
[2020-08-07] MEDS ORDERED: KETOROLAC 15 MG/ML 1 ML VIAL IVP STA (19:15)
[2020-08-07] MEDS ORDERED: SODIUM CHLORIDE 0.9% 1,000 ML IV ONE (19:16)
[2020-08-07 19:38] LABS: Basophils # (A) 0.1 k/uL (0-0.2); Basophils % (A) 1 %; Eosinophils # (A) 0.1 k/uL (0-0.7); Eosinophils % (A) 1 %; HCT 47.3 % (39.0-53.0); HGB 15.8 gm/dL (13.0-17.5); Lymphocytes # (A) 1.4 k/uL (1.0-4.8); Lymphocytes % (A) 22 %; MCHC 33.5 g/dL (31.0-37.0); MCV 92.6 fL (80.0-100.0); Mean Platelet Volume 7.9; Monocytes # (A) 0.3 k/uL (0-1.0); Monocytes % (A) 4 %; Neutrophils # (A) 4.3 k/uL (1.3-7.7); Neutrophils % (A) 69 %; Platelet Count 203 k/uL (150-450); RBC 5.11 m/uL (4.30-5.90); WBC 6.2 k/uL (3.8-10.6)
[2020-08-07 19:40] LABS: Amorphous Sediment,Urine Rare /hpf; Appearance,Urine Clear (Clear); Bacteria,Urine Rare /hpf; Bilirubin,Urine Negative (Negative); Blood,Urine Negative (Negative); Color,Urine Yellow; Glucose,Urine (UA) Negative (Negative); Hyaline Casts,Urine 52 /lpf (0-2); Ketones,Urine Trace (Negative); Leukocyte Esterase,Urine Small (Negative); Mucus,Urine Many /hpf; Nitrite,Urine Negative (Negative); PH, Urine 5.5 (5.0-8.0); Protein,Urine 1+ (Negative); RBC,Urine 2 /hpf (0-5); Specific Gravity,Urine 1.032 (1.001-1.035); Squamous Epithelial Cell,Urine <1 /hpf (0-4); WBC,Urine 2 /hpf (0-5)
[2020-08-07 19:47] LABS: ALT 13 U/L (4-49); AST 32 U/L (17-59); African American GFR (CKD) >90 (>60 ml/min/1.73 sqM); Alkaline Phosphatase 85 U/L (38-126); Anion Gap 6 mmol/L; Blood Urea Nitrogen 36 mg/dL (9-20); Calcium 9.3 mg/dL (8.4-10.2); Carbon Dioxide 24 mmol/L (22-30); Chloride 107 mmol/L (98-107); Glucose 106 mg/dL (74-99); Non-African American GFR(CKD) 82 (>60 ml/min/1.73 sqM); Potassium 5.1 mmol/L (3.5-5.1); Sodium 137 mmol/L (137-145); Total Bilirubin 0.5 mg/dL (0.2-1.3); Total Protein 6.8 g/dL (6.3-8.2)
--- NOTE | 2020-08-07 20:24 | CT ---
EXAMINATION TYPE: CT abdomen pelvis wo con DATE OF EXAM: 08/07/2020 COMPARISON: 05/02/2018 CT HISTORY: Right flank pain CT DLP: 644.1 mGycm Automated exposure control for dose reduction was used. TECHNIQUE: Helical acquisition of images was performed from the lung bases through the pelvis. FINDINGS: Within the limitations of noncontrast CT, the following observations are made. LUNG BASES: No acute findings, but coronary calcifications noted. LIVER/GB: No significant abnormality is appreciated. PANCREAS: No significant abnormality is seen. SPLEEN: No significant abnormality is seen. ADRENALS: No significant abnormality is seen. KIDNEYS, URETERS, AND URINARY BLADDER: No hydronephrosis or hydroureter. No renal or ureteral calcifi cations. No acute urinary bladder findings. FREE AIR: No free air is visualized RETROPERITONEAL ADENOPATHY: None visualized REPRODUCTIVE ORGANS: No significant abnormality is seen URINARY BLADDER: No significant abnormality is seen. PELVIC ADENOPATHY: None visualized. OSSEOUS STRUCTURES: No significant abnormality is seen. BOWEL: No acute bowel process. IMPRESSION: NO ACUTE NONCONTRAST CT PROCESS.
[2020-08-07 20:28] VITALS: RESP 17
[2020-08-07] MEDS ORDERED: cefTRIAXone IN SWFI 1,000 MG/10 ML SYRINGE IVP STA (20:32)
[2020-08-07] MEDS ORDERED: ACET/COD 300 MG/30 MG STARTER PACK 6 TAB BTL PO STA (20:54)
--- NOTE | 2020-08-07 20:57 | ED ---
Back Pain HPI - General Chief Complaint: Back Pain/Injury Stated Complaint: KINDEY STONE Source: patient Limitations: no limitations - History of Present Illness Initial Comments: Patient is a 74-year-old male with past history of hypertension, hyperlipidemia and nephrolithiasis who presents emergency room with report of bilateral flank pain. Patient states the pain started approximately 2 weeks ago. He has a history of kidney stones and said that the pain felt similar. Pain was originally located bilaterally however has now localized to the right side. Denies that it is reproducible with movement. Does admit to a significant amount of physical activity recently. He did take 2 Aleve this morning and states he did not have much improvement in his symptoms. Denies dysuria, hematuria or diplopia voiding. No abdominal pain. No fevers or chills. Denies constipation, diarrhea, melenic stools or hematochezia. No penile discharge. No testicular pain. Patient called his primary care physician who recommended that he come in to the emergency room for evaluation - Related Data Home Medications Medication Instructions Recorded Confirmed Aspirin EC [Ecotrin Low Dose] 81 mg PO HS 06/08/16 08/07/20 Dutasteride [Avodart] 0.5 mg PO DAILY 06/08/16 08/07/20 Levothyroxine Sodium [Synthroid] 175 mcg PO DAILY 06/08/16 08/07/20 Losartan Potassium [Cozaar] 100 mg PO DAILY 06/08/16 08/07/20 Multivitamin/Iron/Folic Acid 2 tab PO DAILY 06/08/16 08/07/20 [Centrum Complete Multivit Tab] Pravastatin Sodium 20 mg PO HS 06/08/16 08/07/20 amLODIPine BESYLATE [Norvasc] 5 mg PO DAILY 06/08/16 08/07/20 Previous Rx's Medication Instructions Recorded Ciprofloxacin HCl [Cipro] 500 mg PO Q12HR #14 tablet 08/07/20 Ketorolac [Toradol] 10 mg PO Q8HR #15 tab 08/07/20 Allergies Allergy/AdvReac Type Severity Reaction Status Date / Time No Known Allergies Allergy Verified 08/07/20 19:34 Review of Systems ROS Statement: Those systems with pertinent positive or pertinent negative responses have been documented in the HPI. ROS Other: All systems not noted in ROS Statement are negative. Past Medical History Past Medical History: Hyperlipidemia, Hypertension, Osteoarthritis (OA), Thyroid Disorder Additional Past Medical History / Comment(s): kidney stones History of Any Multi-Drug Resistant Organisms: None Reported Past Surgical History: Appendectomy Additional Past Surgical History / Comment(s): thyroidectomy Past Anesthesia/Blood Transfusion Reactions: No Reported Reaction Past Psychological History: No Psychological Hx Reported Smoking Status: Never smoker Past Alcohol Use History: None Reported Past Drug Use History: None Reported - Past Family History Mother Family Medical History: No Reported History General Exam Limitations: no limitations Course Vital Signs 08/07/20 08/07/20 08/07/20 18:44 19:45 21:17 Temperature 98.8 F 98.3 F Pulse Rate 66 75 65 Respiratory 18 17 17 Rate Blood Pressure 118/74 118/86 127/91 O2 Sat by Pulse 96 97 97 Oximetry Medical Decision Making - Medical Decision Making Upon arrival patient was placed into room 27. A thorough history and physical exam was performed. Peripheral IV is established. Laboratories his for conducted. Patient went over for a CT of his abdomen and pelvis without contrast. Lab studies reveal a normal creatinine of 0.9. Urinalysis is positive for small leukocyte esterase, rare bacteria 52 hyaline casts and many urine mucus. CT the patient's abdomen and pelvis demonstrates no acute process. I did discuss results with Dr. Schaeffer. The patient does have a simple cyst on his right kidney which is consistent in appearance and size since 2018. I discussed these results with the patient. Recommend treatment with antibiotics for his abnormal UA. Urine sample will be sent for culture. Patient was given a dose of Rocephin in the emergency department. I also recommended treatment with Cipro and Toradol at home. Patient will be given a Tylenol 3 starter pack to take home for any pain that he may have tonight. He is instructed to take his prescription starting tomorrow and discontinue the Tylenol threes. He will follow-up with Dr. Cheng and have improved. He may require further testing if his symptoms have not. The patient understood this. Return to the emergency room for any new or worsening symptoms. Patient was discharged home in stable condition - Lab Data Result diagrams: 08/07/20 19:28 08/07/20 19:28 Lab Results 08/07/20 08/07/20 08/07/20 Range/Units 19:28 19:28 19:28 WBC 6.2 (3.8-10.6) k/uL RBC 5.11 (4.30-5.90) m/uL Hgb 15.8 (13.0-17.5) gm/dL Hct 47.3 (39.0-53.0) % MCV 92.6 (80.0-100.0) fL MCH 31.0 (25.0-35.0) pg MCHC 33.5 (31.0-37.0) g/dL RDW 12.0 (11.5-15.5) % Plt Count 203 (150-450) k/uL Neutrophils % 69 % Lymphocytes % 22 % Monocytes % 4 % Eosinophils % 1 % Basophils % 1 % Neutrophils # 4.3 (1.3-7.7) k/uL Lymphocytes # 1.4 (1.0-4.8) k/uL Monocytes # 0.3 (0-1.0) k/uL Eosinophils # 0.1 (0-0.7) k/uL Basophils # 0.1 (0-0.2) k/uL Sodium 137 (137-145) mmol/L Potassium 5.1 (3.5-5.1) mmol/L Chloride 107 (98-107) mmol/L Carbon Dioxide 24 (22-30) mmol/L Anion Gap 6 mmol/L BUN 36 H (9-20) mg/dL Creatinine 0.91 (0.66-1.25) mg/dL Est GFR (CKD-EPI)AfAm >90 (>60 ml/min/1.73 sqM) Est GFR (CKD-EPI)NonAf 82 (>60 ml/min/1.73 sqM) Glucose 106 H (74-99) mg/dL Calcium 9.3 (8.4-10.2) mg/dL Total Bilirubin 0.5 (0.2-1.3) mg/dL AST 32 (17-59) U/L ALT 13 (4-49) U/L Alkaline Phosphatase 85 (38-126) U/L Total Protein 6.8 (6.3-8.2) g/dL Albumin 4.0 (3.5-5.0) g/dL Urine Color Yellow Urine Appearance Clear (Clear) Urine pH 5.5 (5.0-8.0) Ur Specific Sheldon 1.032 (1.001-1.035) Urine Protein 1+ H (Negative) Urine Glucose (UA) Negative (Negative) Urine Ketones Trace H (Negative) Urine Blood Negative (Negative) Urine Nitrite Negative (Negative) Urine Bilirubin Negative (Negative) Urine Urobilinogen 2.0 (<2.0) mg/dL Ur Leukocyte Esterase Small H (Negative) Urine RBC 2 (0-5) /hpf Urine WBC 2 (0-5) /hpf Ur Squamous Epith Cells <1 (0-4) /hpf Amorphous Sediment Rare H (None) /hpf Urine Bacteria Rare H (None) /hpf Hyaline Casts 52 H (0-2) /lpf Urine Mucus Many H (None) /hpf Disposition Clinical Impression: Flank pain, Abnormal urinalysis Disposition: HOME SELF-CARE Condition: Stable Instructions (If sedation given, give patient instructions): Flank Pain (ED) Additional Instructions: Please follow-up with primary care doctor within 2-4 days. Return to the emergency room for any new or worsening symptoms. Take the Tylenol 3 tonight as needed. Start taking the antibiotics and Toradol tomorrow. Do not take any additional Aleve, Advil or Motrin Prescriptions: Ciprofloxacin HCl [Cipro] 500 mg PO Q12HR #14 tablet Ketorolac [Toradol] 10 mg PO Q8HR #15 tab Is patient prescribed a controlled substance at d/c from ED?: No Referrals: Julian Cheng MD [Primary Care Provider] - 1-2 days Time of Disposition: 20:57
[2020-08-07 21:18] VITALS: BP 127/91; PULSE 65; TEMP 98.3
== END 2020-08-07 21:18 | disposition home or self-care (01) ==
LOC: EC 18:38
DX: R10.9 Unspecified abdominal pain (principal); R82.90 Unspecified abnormal findings in urine; E78.5 Hyperlipidemia, unspecified; I10 Essential (primary) hypertension; M19.90 Unspecified osteoarthritis, unspecified site; E07.9 Disorder of thyroid, unspecified; Z79.82 Long term (current) use of aspirin; Z79.890 Hormone replacement therapy; Z79.899 Other long term (current) drug therapy; Z90.49 Acquired absence of other specified parts of digestive tract
CPT/HCPCS: 36415; 80053; 85025; 81001; 74176; 99284; 96374; 96375; 96361; J0696; J1885

== ENCOUNTER → 2020-08-27 | Outpatient (CLI) | payer OTHER ==
--- NOTE | 2020-08-28 07:59 | US ---
EXAMINATION TYPE: US kidneys/renal and bladder DATE OF EXAM: 08/27/2020 COMPARISON: CT CLINICAL HISTORY: N39.0 UTI. UTI, pt states flank pain EXAM MEASUREMENTS: Right Kidney: 11.3 x 6.2 x 5.6 cm Left Kidney: 12.2 x 5.5 x 4.6 cm Right Kidney: Cyst mid= 3.1 x 2.0 x 2.1 cm, otherwise appeared wnl Left Kidney: Small cyst mid= 0.7 cm/ Cyst lower pole= 1.1 cm, otherwise appeared wnl Bladder: wnl Bilateral Jets seen: No There is no evidence for hydronephrosis at this point in time. No nephrolithiasis is seen. No solid masses are identified. The urinary bladder is anechoic. Bilateral ureteral jets are seen. IMPRESSION: Renal cystic changes noted. Otherwise unremarkable study.
== END | disposition home or self-care (01) ==
LOC: RADUSWWP 15:58
PROVIDERS: ATTEND Family Medicine
DX: N28.1 Cyst of kidney, acquired (principal); N39.0 Urinary tract infection, site not specified
CPT/HCPCS: 76770

== ENCOUNTER → 2021-07-08 | Outpatient (CLI) | payer OTHER ==
--- NOTE | 2021-07-08 10:04 | XR ---
EXAMINATION TYPE: XR Hip Bilateral and AP pelvis DATE OF EXAM: 07/08/2021 COMPARISON: None HISTORY: Pain TECHNIQUE: AP pelvis with bilateral hips 2 views each FINDINGS: Femoral heads articulate with the acetabulum. Symphysis pubis and sacroiliac joints are nor mal. Normal bowel gas is present. No acute fractures or dislocations are evident. IMPRESSION: 1. Normal bilateral hips
== END | disposition home or self-care (01) ==
LOC: RADXRMAIN 09:13
PROVIDERS: ATTEND Nurse Practitioner
DX: M25.551 Pain in right hip (principal); M25.552 Pain in left hip
CPT/HCPCS: 73521

== ENCOUNTER 2021-08-15 03:23 | Emergency (ER) | payer OTHER ==
[2021-08-15 03:32] VITALS: TEMP 97.8
--- NOTE | 2021-08-15 03:55 | ED ---
URI HPI - General Chief Complaint: Upper Respiratory Infection Stated Complaint: Congestion Time Seen by Provider: 08/15/21 03:27 Source: patient Mode of arrival: ambulatory Limitations: no limitations - Related Data Home Medications Medication Instructions Recorded Confirmed Aspirin EC [Ecotrin Low Dose] 81 mg PO HS 06/08/16 08/07/20 Dutasteride [Avodart] 0.5 mg PO DAILY 06/08/16 08/07/20 Levothyroxine Sodium [Synthroid] 175 mcg PO DAILY 06/08/16 08/07/20 Losartan Potassium [Cozaar] 100 mg PO DAILY 06/08/16 08/07/20 Multivitamin/Iron/Folic Acid 2 tab PO DAILY 06/08/16 08/07/20 [Centrum Complete Multivit Tab] Pravastatin Sodium 20 mg PO HS 06/08/16 08/07/20 amLODIPine BESYLATE [Norvasc] 5 mg PO DAILY 06/08/16 08/07/20 Previous Rx's Medication Instructions Recorded Ciprofloxacin HCl [Cipro] 500 mg PO Q12HR #14 tablet 08/07/20 Ketorolac [Toradol] 10 mg PO Q8HR #15 tab 08/07/20 Allergies Allergy/AdvReac Type Severity Reaction Status Date / Time No Known Allergies Allergy Verified 08/15/21 03:32 Review of Systems ROS Statement: Those systems with pertinent positive or pertinent negative responses have been documented in the HPI. ROS Other: All systems not noted in ROS Statement are negative. Past Medical History Past Medical History: Hyperlipidemia, Hypertension, Osteoarthritis (OA), Thyroid Disorder Additional Past Medical History / Comment(s): kidney stones History of Any Multi-Drug Resistant Organisms: None Reported Past Surgical History: Appendectomy Additional Past Surgical History / Comment(s): thyroidectomy Past Anesthesia/Blood Transfusion Reactions: No Reported Reaction Past Psychological History: No Psychological Hx Reported Smoking Status: Never smoker Past Alcohol Use History: None Reported Past Drug Use History: None Reported - Past Family History Mother Family Medical History: No Reported History General Exam Limitations: no limitations Course Vital Signs 08/15/21 08/15/21 08/15/21 03:26 04:22 04:32 Temperature 97.8 F Pulse Rate 67 68 70 Respiratory 18 Rate Blood Pressure 140/72 O2 Sat by Pulse 97 Oximetry Medical Decision Making - Lab Data Result diagrams: 08/15/21 04:26 08/15/21 04:26 Lab Results 08/15/21 08/15/21 08/15/21 Range/Units 04:17 04:26 04:26 WBC 4.2 (3.8-10.6) k/uL RBC 4.80 (4.30-5.90) m/uL Hgb 15.1 (13.0-17.5) gm/dL Hct 43.9 (39.0-53.0) % MCV 91.5 (80.0-100.0) fL MCH 31.5 (25.0-35.0) pg MCHC 34.4 (31.0-37.0) g/dL RDW 12.9 (11.5-15.5) % Plt Count 159 (150-450) k/uL MPV 8.4 Neutrophils % 49 % Lymphocytes % 36 % Monocytes % 6 % Eosinophils % 5 % Basophils % 1 % Neutrophils # 2.1 (1.3-7.7) k/uL Lymphocytes # 1.5 (1.0-4.8) k/uL Monocytes # 0.3 (0-1.0) k/uL Eosinophils # 0.2 (0-0.7) k/uL Basophils # 0.1 (0-0.2) k/uL Sodium 138 (137-145) mmol/L Potassium 4.1 (3.5-5.1) mmol/L Chloride 108 H (98-107) mmol/L Carbon Dioxide 25 (22-30) mmol/L Anion Gap 5 mmol/L BUN 22 H (9-20) mg/dL Creatinine 0.57 L (0.66-1.25) mg/dL Est GFR (CKD-EPI)AfAm >90 (>60 ml/min/1.73 sqM) Est GFR (CKD-EPI)NonAf >90 (>60 ml/min/1.73 sqM) Glucose 101 H (74-99) mg/dL Calcium 8.7 (8.4-10.2) mg/dL Magnesium 2.1 (1.6-2.3) mg/dL Total Bilirubin 0.5 (0.2-1.3) mg/dL AST 29 (17-59) U/L ALT 13 (4-49) U/L Alkaline Phosphatase 69 (38-126) U/L Lactate Dehydrogenase 384 (313-618) U/L C-Reactive Protein 0.7 (<1.0) mg/dL Total Protein 6.6 (6.3-8.2) g/dL Albumin 3.8 (3.5-5.0) g/dL Coronavirus (PCR) Not Detected (Not Detectd) - EKG Data -: EKG Interpreted by Me (EKG is sinus rhythm 82 VT 182 QRS 104 QTc 441 positive PVC) Disposition Clinical Impression: Acute upper respiratory infection, Sinusitis Disposition: HOME SELF-CARE Condition: Good Instructions (If sedation given, give patient instructions): Upper Respiratory Infection (ED) Is patient prescribed a controlled substance at d/c from ED?: No Referrals: Julian Cheng MD [Primary Care Provider] - 1-2 days
[2021-08-15] MEDS ORDERED: KETOROLAC 15 MG/ML 1 ML VIAL IVP STA (04:15)
[2021-08-15] MEDS ORDERED: DEXAMETHASONE SOD PHOSPHATE 10 MG/ML 1 ML VIAL IVP STA (04:15)
[2021-08-15] MEDS ORDERED: ACETAMINOPHEN TAB 500 MG TAB PO STA (04:15)
[2021-08-15] MEDS ORDERED: SODIUM CHLORIDE 0.9% 1,000 ML IV STA (04:15)
[2021-08-15] MEDS ORDERED: IPRATROPIUM-ALBUTEROL 3 ML NEB INHALATION STA (04:17)
[2021-08-15] MEDS ORDERED: PSEUDOEPHEDRINE 30 MG TAB PO STA (04:30)
[2021-08-15 04:34] LABS: Basophils # (A) 0.1 k/uL (0-0.2); Basophils % (A) 1 %; Eosinophils # (A) 0.2 k/uL (0-0.7); Eosinophils % (A) 5 %; HCT 43.9 % (39.0-53.0); HGB 15.1 gm/dL (13.0-17.5); Lymphocytes # (A) 1.5 k/uL (1.0-4.8); Lymphocytes % (A) 36 %; MCH 31.5 pg (25.0-35.0); MCHC 34.4 g/dL (31.0-37.0); MCV 91.5 fL (80.0-100.0); Mean Platelet Volume 8.4; Monocytes # (A) 0.3 k/uL (0-1.0); Monocytes % (A) 6 %; Neutrophils # (A) 2.1 k/uL (1.3-7.7); Neutrophils % (A) 49 %; Platelet Count 159 k/uL (150-450); RDW 12.9 % (11.5-15.5); WBC 4.2 k/uL (3.8-10.6)
[2021-08-15 04:52] LABS: ALT 13 U/L (4-49); AST 29 U/L (17-59); African American GFR (CKD) >90 (>60 ml/min/1.73 sqM); Albumin 3.8 g/dL (3.5-5.0); Alkaline Phosphatase 69 U/L (38-126); Anion Gap 5 mmol/L; Blood Urea Nitrogen 22 mg/dL (9-20); C Reactive Protein 0.7 mg/dL (<1.0); Calcium 8.7 mg/dL (8.4-10.2); Carbon Dioxide 25 mmol/L (22-30); Chloride 108 mmol/L (98-107); Glucose 101 mg/dL (74-99); LDH 384 U/L (313-618); Magnesium 2.1 mg/dL (1.6-2.3); Non-African American GFR(CKD) >90 (>60 ml/min/1.73 sqM); Potassium 4.1 mmol/L (3.5-5.1); Sodium 138 mmol/L (137-145); Total Bilirubin 0.5 mg/dL (0.2-1.3); Total Protein 6.6 g/dL (6.3-8.2)
--- NOTE | 2021-08-15 05:03 | XR ---
EXAMINATION TYPE: XR chest 1V portable DATE OF EXAM: 08/15/2021 COMPARISON: 05/02/2018 HISTORY: Pneumonia TECHNIQUE: Single view FINDINGS: There is no heart failure nor confluent pneumonic infiltrate. Costophrenic angles are clear . There is left shoulder prosthesis. There are no hilar masses. Heart size is normal. IMPRESSION: No active cardiopulmonary disease. No adverse change.
[2021-08-15 05:47] VITALS: BP 122/62; PULSE 72; RESP 17
== END 2021-08-15 05:47 | disposition home or self-care (01) ==
LOC: EC 03:23
DX: J06.9 Acute upper respiratory infection, unspecified (principal); J01.90 Acute sinusitis, unspecified; I10 Essential (primary) hypertension; E78.5 Hyperlipidemia, unspecified; M19.90 Unspecified osteoarthritis, unspecified site; E07.9 Disorder of thyroid, unspecified; Z87.442 Personal history of urinary calculi; Z90.49 Acquired absence of other specified parts of digestive tract; Z20.822 Contact with and (suspected) exposure to COVID-19; Z79.82 Long term (current) use of aspirin
CPT/HCPCS: 99284; 96374; 96375; 36415; 94640; 93005; 83880; 80053; 83615; 83735; 84484; 85025; 86140; 87635; 71045; J1100; J1885

== ENCOUNTER 2021-11-12 12:43 | Emergency (ER) | payer OTHER ==
[2021-11-12 12:49] VITALS: BP 143/78; PULSE 48; RESP 20; TEMP 98
--- NOTE | 2021-11-12 13:22 | CT ---
EXAMINATION TYPE: CT brain wo con DATE OF EXAM: 11/12/2021 HISTORY: fall injury with headache CT DLP: 1114.4 mGycm. Automated Exposure Control for Dose Reduction was Utilized. TECHNIQUE: CT scan of the head is performed without contrast. COMPARISON: CT brain June 08, 2016. FINDINGS: There is no acute intracranial hemorrhage or midline shift identified. There is mild to m oderate diffuse ventricular and sulcal prominence consistent with diffuse age-related cerebral atroph y. There is mild low-attenuation in the periventricular white matter consistent with chronic small v essel ischemic change. There are is 1.1 cm mucous retention cyst or polyp in the anterior inferior le ft maxillary sinus otherwise paranasal sinuses are clear and the globes are intact bilaterally. The calvarium is intact. IMPRESSION: No acute intracranial hemorrhage or midline shift. There is mild to moderate diffuse ag e-related cerebral atrophy and mild chronic small vessel ischemic change redemonstrated. No signific ant change from 2016 CT.
--- NOTE | 2021-11-12 14:56 | ED ---
General Adult HPI - General Chief complaint: Head Injury Stated complaint: Head injury Time Seen by Provider: 11/12/21 14:24 Source: patient, RN notes reviewed Mode of arrival: ambulatory Limitations: no limitations - History of Present Illness Initial comments: 75-year-old male presents to the emergency department for evaluation of head injury. Patient states over the weekend he was working in a barn with a very low ceiling and struck his head several times over the course of 5 hours. When describing the injury, patient states he hit his head when changing position from kneeling to standing. States he has had a mild headache over the course of the last few days. Reports feeling like he did when he had a previous concussion many years ago. States his equilibrium feels off though is not dizzy or lightheaded. He was able to drive himself to the doctor's office today where he was seen prior to arrival. Denies any episodes of loss of consciousness, blurry vision, nausea, vomiting, falls, or additional injuries. - Related Data Home Medications Medication Instructions Recorded Confirmed Aspirin EC [Ecotrin Low Dose] 81 mg PO HS 06/08/16 08/07/20 Dutasteride [Avodart] 0.5 mg PO DAILY 06/08/16 08/07/20 Levothyroxine Sodium [Synthroid] 175 mcg PO DAILY 06/08/16 08/07/20 Losartan Potassium [Cozaar] 100 mg PO DAILY 06/08/16 08/07/20 Multivitamin/Iron/Folic Acid 2 tab PO DAILY 06/08/16 08/07/20 [Centrum Complete Multivit Tab] Pravastatin Sodium 20 mg PO HS 06/08/16 08/07/20 amLODIPine BESYLATE [Norvasc] 5 mg PO DAILY 06/08/16 08/07/20 Previous Rx's Medication Instructions Recorded Ciprofloxacin HCl [Cipro] 500 mg PO Q12HR #14 tablet 08/07/20 Ketorolac [Toradol] 10 mg PO Q8HR #15 tab 08/07/20 Albuterol Sulfate [Proair Hfa] 1 - 2 puff INHALATION Q4H PRN #8.5 08/15/21 gm Azithromycin [Zithromax Z-pack (6 0 mg PO DIRECTED #1 packet 08/15/21 tabs)] predniSONE 50 mg PO DAILY #5 tab 08/15/21 Allergies Allergy/AdvReac Type Severity Reaction Status Date / Time No Known Allergies Allergy Verified 08/15/21 03:32 Review of Systems ROS Statement: Those systems with pertinent positive or pertinent negative responses have been documented in the HPI. ROS Other: All systems not noted in ROS Statement are negative. Past Medical History Past Medical History: Hyperlipidemia, Hypertension, Osteoarthritis (OA), Thyroid Disorder Additional Past Medical History / Comment(s): kidney stones History of Any Multi-Drug Resistant Organisms: None Reported Past Surgical History: Appendectomy Additional Past Surgical History / Comment(s): thyroidectomy Past Anesthesia/Blood Transfusion Reactions: No Reported Reaction Past Psychological History: No Psychological Hx Reported Smoking Status: Never smoker Past Alcohol Use History: None Reported Past Drug Use History: None Reported - Past Family History Mother Family Medical History: No Reported History General Exam Limitations: no limitations (Well-developed, well-nourished male in no acute distress. Initial temperature 90.8, pulse 48, respirations 20, blood pressure 143/78, pulse ox 96% on room air.) General appearance: alert, in no apparent distress Head exam: Present: atraumatic, normocephalic, normal inspection Eye exam: Present: normal appearance, PERRL, EOMI. Absent: scleral icterus, conjunctival injection, periorbital swelling Neck exam: Present: normal inspection, full ROM. Absent: tenderness, meningismus, lymphadenopathy Respiratory exam: Present: normal lung sounds bilaterally. Absent: respiratory distress, wheezes, rales, rhonchi, stridor Cardiovascular Exam: Present: normal rhythm, bradycardia, normal heart sounds, other (EKG door captain ) GI/Abdominal exam: Present: soft, normal bowel sounds. Absent: distended, tenderness, guarding, rebound, rigid Neurological exam: Present: alert, oriented X3, CN II-XII intact Expanded Patient oriented to: Present: person, place, time Speech: Present: fluid speech Cranial nerves: EOM's Intact: Normal, Tongue Deviation: Normal Motor strength exam: RUE: 5, LUE: 5, RLE: 5, LLE: 5 Eye Response: (4) open spontaneously Motor Response: (6) obeys commands Verbal Response: (5) oriented [place] Total: 15 Psychiatric exam: Present: normal affect, normal mood Skin exam: Present: warm, dry, intact, normal color. Absent: rash Course Vital Signs 11/12/21 12:45 Temperature 98 F Pulse Rate 48 L Respiratory 20 Rate Blood Pressure 143/78 O2 Sat by Pulse 96 Oximetry - Reevaluation(s) Reevaluation #1: 11/12/21 15:00 Due to some uncertainty with the coordination of care and orders, EARNEST Nazario from DR. Cheng's office is also present at bedside. Patient clarified that he had had blood work done at Dr. Cheng's office for routine visit, then had an EKG at this facility, though outpatient, due to bradycardia, which was unremarkable. Additional confusion surrounded the actual CT brain order which unable to be done outpatient therefore he was registered as a patient and the CT was ordered from triage. This provider and Mansi discussed patient's care collaboratively. He will be discharged following a negative CT and normal neurological exam. Patient is joined by spouse and they are agreeable with the plan to follow up in the office next week as scheduled. Medical Decision Making - Medical Decision Making 75-year-old male with a past medical history of hypertension, hyperlipidemia, osteoarthritis, and thyroid disorder, presents to the emergency department for evaluation of head injury. Upon exam, patient is well-appearing and in no acute distress. He is neurologically intact with no focal deficits. Head is normocephalic. Patient ambulates without difficulty and is able to change position without dizziness. His physical exam findings are unremarkable. His heart rate was bradycardic at 48- PCP was aware and had done an EKG in the office which was unremarkable. The injury occurred 5 days ago while working in a building that had low overhead clearance. Patient states he banged his head on the ceiling several times over the course of 5 hours. Went to his primary care provider earlier today for routine lab work and discussed his concerns therefore a head CT was ordered, however, due to clerical issues this CT was unable to be done outpatient therefore he registered in the emergency department where he did receive this CT of the brain showing no acute findings. Results were discussed with patient by this provider and patient's CORE DRILL OPERATOR HELPER from the primary care office who was also present at bedside due to the confusion with orders. Patient will be discharged home to follow up in the office next week. Strict return parameters were discussed. Patient and spouse verbalized understanding and agreed with this plan. This patient's care was discussed with my attending Dr. Posadas. Disposition Clinical Impression: Head injury Disposition: HOME SELF-CARE Condition: Stable Instructions (If sedation given, give patient instructions): Head Injury (ED) Additional Instructions: Follow-up with Dr. Cheng next week as scheduled. May take Tylenol or Motrin as needed for headache discomfort. Return to the emergency department with any new, worsening, or concerning symptoms. Is patient prescribed a controlled substance at d/c from ED?: No Referrals: Julian Cheng MD [Primary Care Provider] - 1-2 days Time of Disposition: 15:23
== END 2021-11-12 15:30 | disposition home or self-care (01) ==
LOC: EC 12:43
DX: S09.90XA Unspecified injury of head, initial encounter (principal); G31.1 Senile degeneration of brain, not elsewhere classified; I10 Essential (primary) hypertension; E78.5 Hyperlipidemia, unspecified; M19.90 Unspecified osteoarthritis, unspecified site; E07.9 Disorder of thyroid, unspecified; Z90.49 Acquired absence of other specified parts of digestive tract; Z79.890 Hormone replacement therapy; W22.8XXA Striking against or struck by other objects, initial encounter
CPT/HCPCS: 70450; 99283

== ENCOUNTER → 2021-11-12 | Outpatient (CLI) | payer OTHER | END | disposition home or self-care (01) | LOC: LABWHC1 09:26 | PROVIDERS: ATTEND Nurse Practitioner Family | DX: I49.3 Ventricular premature depolarization (principal); I44.4 Left anterior fascicular block; I45.4 Nonspecific intraventricular block; R42 Dizziness and giddiness; R94.31 Abnormal electrocardiogram [ECG] [EKG] | CPT/HCPCS: 36415; 93005 ==

== ENCOUNTER 2022-03-29 00:45 | Inpatient (IN) | payer OTHER, MEDICARE ==
--- NOTE | 2022-03-29 01:43 | XR ---
EXAM: XR Abdomen, 2 Views CLINICAL HISTORY: ITS.REASON XR Reason: abdominal pain TECHNIQUE: Frontal view of the abdomen/pelvis with upright view of the abdomen. COMPARISON: Comparison made to prior plain film images of the abdomen from May 03, 2018.. FINDINGS: Intraperitoneal space: No free air. Gastrointestinal tract: There is an air-fluid level in the left elbow quadrant small bowel loop No dilation. Bones/joints: There is a sclerotic lesion within the left and right superior. Moderate to advanced disc degeneration at L1-2 through L5-S1. Mild levoscoliosis. IMPRESSION: Air-fluid level in nondilated left upper quadrant small bowel loop, likely represents focal ileus.
[2022-03-29] MEDS ORDERED: SODIUM CHLORIDE 0.9% 500 ML 500 ML IV STA (05:29)
[2022-03-29] MEDS ORDERED: SODIUM CHLORIDE 0.9% 1,000 ML IV STA (05:29)
[2022-03-29] MEDS ORDERED: ACETAMINOPHEN TAB 325 MG TAB PO PRN (05:33)
[2022-03-29] MEDS ORDERED: ONDANSETRON 4 MG/2 ML VIAL IVP PRN (05:33)
[2022-03-29] MEDS ORDERED: NALOXONE 0.4 MG/ML 1 ML VIAL IV PRN (05:33)
[2022-03-29 06:05] LABS: Basophils % (A) 0 %; Eosinophils % (A) 1 %; HCT 48.1 % (39.0-53.0); HGB 16.5 gm/dL (13.0-17.5); Lymphocytes # (A) 0.8 k/uL (1.0-4.8); Lymphocytes % (A) 12 %; MCH 31.7 pg (25.0-35.0); MCHC 34.3 g/dL (31.0-37.0); MCV 92.6 fL (80.0-100.0); Mean Platelet Volume 8.2; Monocytes # (A) 0.2 k/uL (0-1.0); Monocytes % (A) 3 %; Neutrophils # (A) 5.5 k/uL (1.3-7.7); Neutrophils % (A) 83 %; Platelet Count 201 k/uL (150-450); RDW 12.6 % (11.5-15.5); WBC 6.6 k/uL (3.8-10.6)
--- NOTE | 2022-03-29 07:55 | ED ---
Abdominal Pain HPI - General Chief Complaint: Abdominal Pain Stated Complaint: Blocked intestines Time Seen by Provider: 03/29/22 01:35 Source: patient Mode of arrival: wheelchair Limitations: no limitations - History of Present Illness Initial Comments: This patient is 76-year-old man presenting with upper abdominal pain, bloating, and feeling identical to previous bowel obstruction. Patient's past surgical history only notable for endoscopic hernia repair, he does not recall exactly when this was or the surgeon. Patient states that in the past he has had bowel obstructions that required NG tube placement but that they did resolve without surgery. He states that earlier today he had had consumed a large meal and then gone fishing. While he was fishing he started to develop upper abdominal pain and bloating that he states was identical to previous episodes of obstruction. He then came here for evaluation. He did have one episode of vomiting prior to arrival, no hematemesis. Patient's last bowel movement was in the afternoon or early evening. MD Complaint: abdominal pain -: hour(s) Location: diffuse Radiation: LUQ, RUQ, epigastric Migration to: no migration Severity: severe Quality: aching, fullness Consistency: constant Improves With: nothing Worsens With: nothing Associated Symptoms: nausea, vomiting - Related Data Home Medications Medication Instructions Recorded Confirmed Aspirin EC [Ecotrin Low Dose] 81 mg PO DAILY 06/08/16 03/29/22 Dutasteride [Avodart] 0.5 mg PO DAILY 06/08/16 03/29/22 Levothyroxine Sodium [Synthroid] 175 mcg PO DAILY 06/08/16 03/29/22 Losartan Potassium [Cozaar] 100 mg PO DAILY 06/08/16 03/29/22 Pravastatin Sodium 20 mg PO HS 06/08/16 03/29/22 amLODIPine BESYLATE [Norvasc] 5 mg PO DAILY 06/08/16 03/29/22 Tamsulosin [Flomax] 0.4 mg PO HS 03/29/22 03/29/22 Allergies Allergy/AdvReac Type Severity Reaction Status Date / Time No Known Allergies Allergy Verified 03/29/22 06:26 Review of Systems ROS Statement: Those systems with pertinent positive or pertinent negative responses have been documented in the HPI. ROS Other: All systems not noted in ROS Statement are negative. Constitutional: Denies: fever, chills Respiratory: Denies: cough, dyspnea Cardiovascular: Denies: chest pain, palpitations, edema Gastrointestinal: Reports: abdominal pain, nausea, vomiting. Denies: hematemesis, melena, hematochezia Genitourinary: Denies: dysuria, hematuria Musculoskeletal: Denies: back pain Skin: Denies: rash Neurological: Denies: headache, weakness Past Medical History Past Medical History: Hyperlipidemia, Hypertension, Osteoarthritis (OA), Thyroid Disorder Additional Past Medical History / Comment(s): kidney stones History of Any Multi-Drug Resistant Organisms: None Reported Past Surgical History: Appendectomy Additional Past Surgical History / Comment(s): thyroidectomy Past Anesthesia/Blood Transfusion Reactions: No Reported Reaction Past Psychological History: No Psychological Hx Reported Smoking Status: Never smoker Past Alcohol Use History: None Reported Past Drug Use History: None Reported - Past Family History Mother Family Medical History: No Reported History Father Family Medical History: Cancer General Exam Limitations: no limitations General appearance: alert, in no apparent distress Head exam: Present: atraumatic, normocephalic Eye exam: Present: normal appearance. Absent: scleral icterus, conjunctival injection ENT exam: Present: normal oropharynx Neck exam: Present: normal inspection Respiratory exam: Present: normal lung sounds bilaterally. Absent: respiratory distress, wheezes, rales, rhonchi, stridor Cardiovascular Exam: Present: regular rate, normal rhythm, normal heart sounds. Absent: systolic murmur, diastolic murmur, rubs, gallop GI/Abdominal exam: Present: soft, distended, tenderness, diminished bowel sounds. Absent: guarding, rebound, rigid, mass, pulsatile mass, hernia Extremities exam: Present: normal inspection, normal capillary refill. Absent: pedal edema, calf tenderness Back exam: Present: normal inspection. Absent: CVA tenderness (R), CVA tenderness (L) Neurological exam: Present: alert Skin exam: Present: warm, dry, intact, normal color. Absent: rash Course Vital Signs 03/29/22 03/29/22 01:11 06:46 Temperature 97.9 F Pulse Rate 82 87 Respiratory 22 16 Rate Blood Pressure 130/86 134/86 O2 Sat by Pulse 97 99 Oximetry Medical Decision Making - Medical Decision Making Patient is 76-year-old man who has previously had bowel obstructions and presented with symptoms identical to previous episodes. Workup reveals patient appears to have ileus, by the abdominal x-ray. He did request NG tube be placed for symptom relief. I did place an NG tube, inserted without complication, and there was over a liter of stomach contents returned. He has not had full relief of symptoms. Will admit patient is to see if the ileus resolves, also surgical consultation. - Lab Data Result diagrams: 03/29/22 05:59 03/29/22 07:59 Disposition Clinical Impression: Ileus, Abdominal pain Disposition: ADMITTED IP TO THIS [facility] Condition: Good Is patient prescribed a controlled substance at d/c from ED?: No
[2022-03-29 08:34] LABS: ALT 13 U/L (4-49); AST 24 U/L (17-59); African American GFR (CKD) >90 (>60 ml/min/1.73 sqM); Albumin 4.2 g/dL (3.5-5.0); Albumin/Globulin Ratio 1.6; Alkaline Phosphatase 73 U/L (38-126); Anion Gap 6 mmol/L; Blood Urea Nitrogen 20 mg/dL (9-20); Calcium 9.1 mg/dL (8.4-10.2); Carbon Dioxide 30 mmol/L (22-30); Chloride 106 mmol/L (98-107); Globulin 2.6 g/dL; Glucose 122 mg/dL (74-99); Non-African American GFR(CKD) >90 (>60 ml/min/1.73 sqM); Potassium 4.3 mmol/L (3.5-5.1); Sodium 142 mmol/L (137-145); Total Bilirubin 0.5 mg/dL (0.2-1.3); Total Protein 6.8 g/dL (6.3-8.2)
[2022-03-29] MEDS: DEXTROSE 5%-0.9% NACL 1,000 ML IV SCH ×2 (10:24→22:30)
--- NOTE | 2022-03-29 12:59 | P.HPIM ---
History of Present Illness This is a pleasant 76 years old male with past medical history of Hyperlipidemia, Hypertension, Osteoarthritis (OA), Thyroid Disorder Presents because of abdominal painabout 07/12 that started yesterday 3 PM, his pain was more in the periumbilical area, nonradiating, felt likely versus nonspecific. Patient states that this is a 30 time he had some bowel obstruction. He had one bowel movement in the emergency room, no blood in it. No mitral vomiting Currently he has an NG tube with around 100 mL of bile-colored discharge he den ies smoking, alcohol or illicit drugs Patient denies previous surgeries Hemodynamically stable. Unremarkable labs including CBC, BMP, liver enzymes. Abdominal x-ray: Air-fluid level in nondilated left upper quadrant small bowel loop likely present focal ileus Patient received normal saline Review of Systems CONSTITUTIONAL: No fever, no malaise, no fatigue. HEENT: No recent visual problems or hearing problems. Denied any sore throat. CARDIOVASCULAR: No orthopnea, PND, no palpitations, no syncope. PULMONARY: No shortness of breath, no cough, no hemoptysis. GASTROINTESTINAL: No diarrhea, no nausea, no vomiting, no abdominal pain. Normoactive bowel sounds. NEUROLOGICAL: No headaches, no weakness, no numbness. HEMATOLOGICAL: Denies any bleeding or petechiae. GENITOURINARY: Denies any burning micturition, frequency, or urgency. MUSCULOSKELETAL/RHEUMATOLOGICAL: Denies any joint pain, swelling, or any muscle pain. ENDOCRINE: Denies any polyuria or polydipsia. Past Medical History Past Medical History: Hyperlipidemia, Hypertension, Osteoarthritis (OA), Thyroid Disorder Additional Past Medical History / Comment(s): kidney stones History of Any Multi-Drug Resistant Organisms: None Reported Past Surgical History: Appendectomy Additional Past Surgical History / Comment(s): thyroidectomy Past Anesthesia/Blood Transfusion Reactions: No Reported Reaction Past Psychological History: No Psychological Hx Reported Smoking Status: Never smoker Past Alcohol Use History: None Reported Past Drug Use History: None Reported - Past Family History Mother Family Medical History: No Reported History Medications and Allergies Home Medications Medication Instructions Recorded Confirmed Type Aspirin EC [Ecotrin Low Dose] 81 mg PO DAILY 06/08/16 03/29/22 History Dutasteride [Avodart] 0.5 mg PO DAILY 06/08/16 03/29/22 History Levothyroxine Sodium [Synthroid] 175 mcg PO DAILY 06/08/16 03/29/22 History Losartan Potassium [Cozaar] 100 mg PO DAILY 06/08/16 03/29/22 History Pravastatin Sodium 20 mg PO HS 06/08/16 03/29/22 History amLODIPine BESYLATE [Norvasc] 5 mg PO DAILY 06/08/16 03/29/22 History Tamsulosin [Flomax] 0.4 mg PO HS 03/29/22 03/29/22 History Allergies Allergy/AdvReac Type Severity Reaction Status Date / Time No Known Allergies Allergy Verified 03/29/22 06:26 Physical Exam Vitals: Vital Signs Temp Pulse Pulse Resp BP BP Pulse Ox 03/29/22 07:47 97.4 F L 99 18 132/90 95 03/29/22 06:46 87 16 134/86 99 03/29/22 01:11 97.9 F 82 22 130/86 97 Intake and Output 03/28/22 03/29/22 03/29/22 22:59 06:59 14:59 Other: Weight 91.626 kg GENERAL: The patient is alert and oriented x3, not in any acute distress. Well developed, well nourished. HEENT: Pupils are round and equally reacting to light. EOMI. No scleral icterus. No conjunctival pallor. Normocephalic, atraumatic. No pharyngeal erythema. No thyromegaly. CARDIOVASCULAR: S1 and S2 present. No murmurs, rubs, or gallops. PULMONARY: Chest is clear to auscultation, no wheezing or crackles. -ABDOMEN: Soft, mild periumbilical tenderness nontender, nondistended, normoactive bowel sounds. No palpable organomegaly. NG tube in place MUSCULOSKELETAL: No joint swelling or deformity. EXTREMITIES: No cyanosis, clubbing, or pedal edema. NEUROLOGICAL: Gross neurological examination did not reveal any focal deficits. SKIN: No rashes. No petechiae Results CBC & Chem 7: 03/29/22 05:59 03/29/22 07:59 Labs: Abnormal Lab Results - Last 24 Hours (Table) 03/29/22 03/29/22 Range/Units 05:59 07:59 Lymphocytes # 0.8 L (1.0-4.8) k/uL Glucose 122 H (74-99) mg/dL Assessment and Plan Assessment: Acute Small intestinal ileus Hypertension Hyperlipidemia Osteoarthritis Hypothyroidism Previous history of bowel obstruction Plan: This is a pleasant 76 years old male who presents with small bowel ileus Continue with bowel rest IV fluid Pain management Surgery team consult Labs and medication were reviewed.. Continue same treatment. Continue with symptomatic treatment. Resume home medication. Monitor lytes and vitals. DVT and GI prophylaxis. Further recommendations depends on the clinical course of the patient DVT prophylaxis: Subcutaneous heparin GI Prophylaxis: Pepcid PT/OT: Pending Prognosis is guarded
--- NOTE | 2022-03-29 13:34 | P.GSCN ---
History of Present Illness Consult date: 03/29/22 History of present illness: CHIEF COMPLAINT: Abdominal pain HISTORY OF PRESENT ILLNESS: This is a 76-year-old male who presented with abdominal pain with abdominal distention and nausea. Patient reports that his symptoms felt very similar to his prior bowel obstructions. He's had 3 prior small bowel obstructions which were treated conservatively with NG tube placed. Patient reports that his symptoms started around 3 PM yesterday. He initially 8 [employer] pancakes for breakfast and then later yesterday afternoon G had a baked potato, banana, corn on the car and sandwich. After eating that he noted abdominal pain bloating and severe nausea. He V and came into the ER for further evaluation. Patient reports that he had been having bowel movements. He had an abdominal x-ray in the ER that did show an ileus. He had NG tube placed in the ER with 1 L fluid output through the NG. Since NG tube placement patient reports his abdominal distention and pain have resolved. He has had a bowel movement and flatus. He denies any fever chills or sweats. Past surgical history includes appendectomy and umbilical hernia repair. Afebrile PAST MEDICAL HISTORY: Small bowel traction, hypothyroidism, hyperlipidemia, hypertension, osteoarthritis PAST SURGICAL HISTORY: See list. MEDICATIONS: See list. ALLERGIES: See list. SOCIAL HISTORY: No illicit drug use. REVIEW OF SYSTEMS: CONSTITUTIONAL: Denies fever or chills. HEENT: Denies blurred vision, vision changes, or eye pain. Denies hemoptysis CARDIOVASCULAR: Denies chest pain or pressure. RESPIRATORY: No shortness of breath. GASTROINTESTINAL: See HPI for pertinent findings HEMATOLOGIC: Denies bleeding disorders. GENITOURINARY: Denies any blood in urine or increased urinary frequency. SKIN: Denies pruitis. Denies rash. PHYSICAL EXAM: VITAL SIGNS: Reviewed GENERAL: Well-developed in no acute distress. HEENT: No sclera icterus. Extraocular movements grossly intact. Moist buccal mucosa. Head is atraumatic, normocephalic. No nasal drainage. ABDOMEN: Soft. Nondistended. Nontender NEUROLOGIC: Alert and oriented. Cranial nerves II through XII grossly intact. LABORATORY DATA: WBC 6.6 Hgb 16.5 platelets 201 Sodium 142 potassium 4.3 creatinine 0.67 Glucose 122 LFTs normal IMAGING: Abdominal x-ray air-fluid level in nondilated left upper quadrant and small bowel loop likely represents focal ileus ASSESSMENT: 1. Ileus 2. Abdominal pain with abdominal distention PLAN: -Patient having bowel movements and flatus. Discontinue NG tube -Start clear liquid diet -We'll resume Synthroid -Other home medications per medicine service -Encourage patient to ambulate -Continue supportive care Physician Cell Feed Department Supervisor note has been reviewed by physician. Signing provider agrees with the documented findings, assessment, and plan of care. Past Medical History Past Medical History: Hyperlipidemia, Hypertension, Osteoarthritis (OA), Thyroid Disorder Additional Past Medical History / Comment(s): kidney stones History of Any Multi-Drug Resistant Organisms: None Reported Past Surgical History: Appendectomy Additional Past Surgical History / Comment(s): thyroidectomy Past Anesthesia/Blood Transfusion Reactions: No Reported Reaction Past Psychological History: No Psychological Hx Reported Smoking Status: Never smoker Past Alcohol Use History: None Reported Past Drug Use History: None Reported - Past Family History Mother Family Medical History: No Reported History Medications and Allergies Home Medications Medication Instructions Recorded Confirmed Type Aspirin EC [Ecotrin Low Dose] 81 mg PO DAILY 06/08/16 03/29/22 History Dutasteride [Avodart] 0.5 mg PO DAILY 06/08/16 03/29/22 History Levothyroxine Sodium [Synthroid] 175 mcg PO DAILY 06/08/16 03/29/22 History Losartan Potassium [Cozaar] 100 mg PO DAILY 06/08/16 03/29/22 History Pravastatin Sodium 20 mg PO HS 06/08/16 03/29/22 History amLODIPine BESYLATE [Norvasc] 5 mg PO DAILY 06/08/16 03/29/22 History Tamsulosin [Flomax] 0.4 mg PO HS 03/29/22 03/29/22 History Allergies Allergy/AdvReac Type Severity Reaction Status Date / Time No Known Allergies Allergy Verified 03/29/22 06:26 Surgical - Exam Vital Signs Temp Pulse Resp BP Pulse Ox 97.9 F 82 22 130/86 97 03/29/22 01:11 03/29/22 01:11 03/29/22 01:11 03/29/22 01:11 03/29/22 01:11 Results - Labs 03/29/22 05:59 03/29/22 07:59 Abnormal Lab Results - Last 24 Hours (Table) 03/29/22 03/29/22 Range/Units 05:59 07:59 Lymphocytes # 0.8 L (1.0-4.8) k/uL Glucose 122 H (74-99) mg/dL Diabetes panel 03/29/22 Range/Units 07:59 Sodium 142 (137-145) mmol/L Potassium 4.3 (3.5-5.1) mmol/L Chloride 106 (98-107) mmol/L Carbon Dioxide 30 (22-30) mmol/L BUN 20 (9-20) mg/dL Creatinine 0.67 (0.66-1.25) mg/dL Glucose 122 H (74-99) mg/dL Calcium 9.1 (8.4-10.2) mg/dL AST 24 (17-59) U/L ALT 13 (4-49) U/L Alkaline Phosphatase 73 (38-126) U/L Total Protein 6.8 (6.3-8.2) g/dL Albumin 4.2 (3.5-5.0) g/dL Calcium panel 03/29/22 Range/Units 07:59 Calcium 9.1 (8.4-10.2) mg/dL Albumin 4.2 (3.5-5.0) g/dL Pituitary panel 03/29/22 Range/Units 07:59 Sodium 142 (137-145) mmol/L Potassium 4.3 (3.5-5.1) mmol/L Chloride 106 (98-107) mmol/L Carbon Dioxide 30 (22-30) mmol/L BUN 20 (9-20) mg/dL Creatinine 0.67 (0.66-1.25) mg/dL Glucose 122 H (74-99) mg/dL Calcium 9.1 (8.4-10.2) mg/dL Adrenal panel 03/29/22 Range/Units 07:59 Sodium 142 (137-145) mmol/L Potassium 4.3 (3.5-5.1) mmol/L Chloride 106 (98-107) mmol/L Carbon Dioxide 30 (22-30) mmol/L BUN 20 (9-20) mg/dL Creatinine 0.67 (0.66-1.25) mg/dL Glucose 122 H (74-99) mg/dL Calcium 9.1 (8.4-10.2) mg/dL Total Bilirubin 0.5 (0.2-1.3) mg/dL AST 24 (17-59) U/L ALT 13 (4-49) U/L Alkaline Phosphatase 73 (38-126) U/L Total Protein 6.8 (6.3-8.2) g/dL Albumin 4.2 (3.5-5.0) g/dL
[2022-03-29] MEDS: LEVOTHYROXINE 88 MCG TAB PO SCH (13:57)
[2022-03-29] MEDS: FAMOTIDINE 20 MG/2 ML VIAL IV SCH (22:26)
[2022-03-29] MEDS: HEPARIN SODIUM,PORCINE/PF 5,000 UNIT/0.5 ML SYRINGE SQ SCH (22:27)
[2022-03-30] MEDS: LEVOTHYROXINE 88 MCG TAB PO SCH (06:33)
[2022-03-30] MEDS ORDERED: ASPIRIN 81 MG PO SCH (09:00)
[2022-03-30 09:15] LABS: Basophils # (A) 0.04 X 10*3/uL (0.00-0.10); Basophils % (A) 0.9 %; Eosinophils # (A) 0.23 X 10*3/uL (0.04-0.35); HCT 42.7 % (39.6-50.0); HGB 13.8 g/dL (13.0-17.0); Immature Grans, Automated 0.2 %; Lymphocytes # (A) 1.69 X 10*3/uL (0.90-5.00); MCH 30.1 pg (27.0-32.0); MCHC 32.3 g/dL (32.0-37.0); MCV 93.2 fL (80.0-97.0); Mean Platelet Volume 10.8 fL (9.5-12.2); Monocytes # (A) 0.35 X 10*3/uL (0.20-1.00); Monocytes % (A) 7.7 %; NRBC Per 100 WBC 0 /100 WBCS (0.0-0.0); Neutrophils # (A) 2.25 X 10*3/uL (1.80-7.70); Neutrophils % (A) 49.2 %; Platelet Count 154 X 10*3/uL (140-440); RBC 4.58 X 10*6/uL (4.40-5.60); RDW 12.1 % (11.5-14.5); WBC 4.57 X 10*3/uL (4.50-10.00)
[2022-03-30 09:32] LABS: African American GFR (CKD) 104.8 (60.0-200.0); Anion Gap 9.2 mmol/L (10.00-18.00); BUN/Creat Ratio 20.29 Ratio (12.00-20.00); Blood Urea Nitrogen 14.2 mg/dL (9.0-27.0); Calcium 8.3 mg/dL (8.7-10.3); Carbon Dioxide 24.8 mmol/L (20.0-27.5); Magnesium 2.2 mg/dL (1.5-2.4); Non-African American GFR(CKD) 90.4 (60.0-200.0); Potassium 4.1 mmol/L (3.5-5.5)
[2022-03-30] MEDS: HEPARIN SODIUM,PORCINE/PF 5,000 UNIT/0.5 ML SYRINGE SQ SCH (10:41)
[2022-03-30] MEDS: FAMOTIDINE 20 MG/2 ML VIAL IV SCH (11:59)
[2022-03-30] MEDS: DEXTROSE 5%-0.9% NACL 1,000 ML IV SCH (11:59)
--- NOTE | 2022-03-30 12:03 | P.PN ---
Subjective Progress Note Date: 03/30/22 CHIEF COMPLAINT: Ileus HISTORY OF PRESENT ILLNESS: Patient's abdominal pain has improved. He is having bowel movements and flatus. NG tube was discontinued yesterday and he was started on clear liquid diet. Patient wants to eat and be discharged today. He has had no abdominal pain. Afebrile. WBC is 4.57 hemoglobin 13.8. Patient did tolerate oatmeal this morning Patient seen and examined with Dr. Sue PHYSICAL EXAM: VITAL SIGNS: Reviewed. GENERAL: Well-developed in no acute distress. HEENT: No sclera icterus. Extraocular movements grossly intact. Moist buccal mucosa. Head is atraumatic, normocephalic. ABDOMEN: Soft. Nondistended. Nontender. NEUROLOGIC: Alert and oriented. Cranial nerves II through XII grossly intact. ASSESSMENT: 1. Ileus resolved 2. Abdominal pain with abdominal distention PLAN: -Patient can be discharged from surgical standpoint -Advance diet to low fiber and then as tolerated Physician Rubber Gasket Inspector Trimmer note has been reviewed by physician. Signing provider agrees with the documented findings, assessment, and plan of care. Objective - Vital Signs Vital signs: Vital Signs Temp 97.8 F 03/30/22 07:20 Pulse 55 L 03/30/22 07:20 Resp 20 03/30/22 07:20 BP 131/76 03/30/22 07:20 Pulse Ox 97 03/30/22 07:20 FiO2 Intake & Output 03/29/22 03/30/22 03/30/22 18:59 06:59 18:59 Intake Total 600 1000 600 Output Total 200 Balance 400 1000 600 Weight 91.626 kg Intake: Intake, IV Titration 600 750 600 Amount Dextrose 5%-0.9% NaCl 1, 600 750 600 000 ml @ 75 mls/hr IV . [id number] [id number] Rx#:[id number] Oral 250 Output: Gastric Drainage 200 Other: # Voids 1 # Bowel Movements 2 - Labs CBC & Chem 7: 03/30/22 05:07 03/30/22 05:07 Labs: Abnormal Lab Results - Last 24 Hours (Table) 03/30/22 Range/Units 05:07 Anion Gap 9.20 L (10.00-18.00) mmol/L BUN/Creatinine Ratio 20.29 H (12.00-20.00) Ratio Calcium 8.3 L (8.7-10.3) mg/dL
[2022-03-30 14:26] VITALS: BP 124/71; PULSE 62; RESP 22; TEMP 97.9
[2022-03-30] MEDS ORDERED: PRAVASTATIN SODIUM 20 MG TAB PO SCH (21:00)
[2022-03-30] MEDS ORDERED: TAMSULOSIN 0.4 MG CAP.ER.24H PO SCH (21:00)
--- NOTE | 2022-03-31 00:41 | P.DS ---
Providers Date of admission: 03/29/22 05:33 Attending physician: Mario Alberto Dominguez MD Consults: 03/29/22 05:33 Consult Physician Routine Consulting Provider: Chaim Sue Consult Reason/Comments: Ileus, abdominal pain Do you want consulting provider notified?: Yes Primary care physician: Julian Cheng Hospital Course: Diagnoses: Acute Small intestinal ileus Hypertension Hyperlipidemia Osteoarthritis Hypothyroidism Previous history of bowel obstruction Hospital course: This is a pleasant 76 years old male with past medical history of Hyperlipidemia, Hypertension, Osteoarthritis (OA), Thyroid Disorder Presents because of abdominal pain secondary on small intestinal ileus which is shown in the abdominal x-ray. Patient has been able at by surgery team and his been treated with bowel rest, IV fluid and pain management Next a patient had regular bowel movement abdominal pain resolved and patient is back to normal self. He tolerates that well. Patient was so adamant and eager to go home that he was ready to check himself out,. He denies any chest pain or dyspnea or any other symptoms or fever. Patient was cleared for discharge by surgeon. Problems and management plan were discussed with the patient and he verbalized understanding and acceptance Patient was found stable and can be discharged home however he needs follow-up as an outpatient. Patient was instructed to follow up with PCP within one week and patient agrees Also patient was instructed to follow up with the surgeon Dr. Sue in one week and he agrees Physical exam Gen: patient is a AAOx3, no distress CVS: S1-S2, RRR, no murmur Lungs: B/L CTA, no wheezing Abdomen: soft, no distention, no tenderness, positive bowel sounds Extremity: no leg edema or induration Time spent more than 35 minutes Patient Condition at Discharge: Good Plan - Discharge Summary Discharge Rx Participant: No New Discharge Prescriptions: Continue Aspirin EC [Ecotrin Low Dose] 81 mg PO DAILY amLODIPine BESYLATE [Norvasc] 5 mg PO DAILY Pravastatin Sodium 20 mg PO HS Losartan Potassium [Cozaar] 100 mg PO DAILY Levothyroxine Sodium [Synthroid] 175 mcg PO DAILY Dutasteride [Avodart] 0.5 mg PO DAILY Tamsulosin [Flomax] 0.4 mg PO HS Discharge Medication List Aspirin EC [Ecotrin Low Dose] 81 mg PO DAILY 06/08/16 [History] Dutasteride [Avodart] 0.5 mg PO DAILY 06/08/16 [History] Levothyroxine Sodium [Synthroid] 175 mcg PO DAILY 06/08/16 [History] Losartan Potassium [Cozaar] 100 mg PO DAILY 06/08/16 [History] Pravastatin Sodium 20 mg PO HS 06/08/16 [History] amLODIPine BESYLATE [Norvasc] 5 mg PO DAILY 06/08/16 [History] Tamsulosin [Flomax] 0.4 mg PO HS 03/29/22 [History] Follow up Appointment(s)/Referral(s): Julian Cheng MD [Primary Care Provider] - 04/06/22 10:10 am Chaim Sue MD [STAFF PHYSICIAN] - 04/06/22 2:30 pm Patient Instructions/Handouts: Low Fiber Diet (DC), Acute Abdominal Pain (DC), Ileus (DC) Activity/Diet/Wound Care/Special Instructions: low fiber diet activity is restricted till you see your doctor Discharge Disposition: HOME SELF-CARE
== END 2022-03-30 15:05 | disposition home or self-care (01) | DRG 390 ==
LOC: EC 00:45 → 4SSUR 05:33
PROVIDERS: ADMIT Internal Medicine; ATTEND Internal Medicine
PROC: 0D9770Z Drainage of Stomach, Pylorus with Drainage Device, Via Natural or Artificial Opening (ICD-10-PCS; principal; 2022-03-29)
DX: K56.7 Ileus, unspecified (principal); E78.5 Hyperlipidemia, unspecified; E89.0 Postprocedural hypothyroidism; I10 Essential (primary) hypertension; M19.90 Unspecified osteoarthritis, unspecified site; Z79.890 Hormone replacement therapy; Z79.82 Long term (current) use of aspirin; Z79.899 Other long term (current) drug therapy; Z87.442 Personal history of urinary calculi; Z90.49 Acquired absence of other specified parts of digestive tract; Z87.19 Personal history of other diseases of the digestive system
CPT/HCPCS: 74019; 80048; 80053; 83735; 85025; 96360; 99285

== ENCOUNTER 2022-05-16 21:33 | Observation (INO) | payer MEDICARE, OTHER ==
--- NOTE | 2022-05-16 22:53 | ED ---
Abdominal Pain HPI - General Chief Complaint: Abdominal Pain Stated Complaint: Chest pain Time Seen by Provider: 05/16/22 22:52 Source: patient Mode of arrival: wheelchair Limitations: no limitations - History of Present Illness Initial Comments: 76-year-old male with past medical history of hypertension, hyperlipidemia presents to emergency departments with abdominal pain. Patient has multiple hospital admissions for small bowel obstruction and ileus. States that his symptoms feel extremely similar nature. He admits to nausea without vomiting. Denies any changes in his bowel habits. Did have a bowel movement prior to coming into the emergency room. Does have significant abdominal pain and distention of the right upper quadrant. He denies any chest pain or shortness of breath. No fevers. No other alleviating, precipitating modifying factors - Related Data Home Medications Medication Instructions Recorded Confirmed Aspirin EC [Ecotrin Low Dose] 81 mg PO HS 06/08/16 05/17/22 Dutasteride [Avodart] 0.5 mg PO DAILY 06/08/16 05/17/22 Levothyroxine Sodium [Synthroid] 175 mcg PO DAILY 06/08/16 05/17/22 Losartan Potassium [Cozaar] 100 mg PO DAILY 06/08/16 05/17/22 Pravastatin Sodium 20 mg PO HS 06/08/16 05/17/22 amLODIPine BESYLATE [Norvasc] 5 mg PO DAILY 06/08/16 05/17/22 Tamsulosin [Flomax] 0.4 mg PO DAILY 03/29/22 05/17/22 Meloxicam [Mobic] 7.5 mg PO DAILY 05/17/22 05/17/22 Pennsaid 2% Pump Lenore 2 pump TOPICAL BID 05/17/22 05/17/22 methylPREDNISolone Dose Pack See Taper PO DAILY 05/17/22 05/17/22 [Medrol Dose Pack] Allergies Allergy/AdvReac Type Severity Reaction Status Date / Time No Known Allergies Allergy Verified 05/17/22 07:29 Review of Systems ROS Statement: Those systems with pertinent positive or pertinent negative responses have been documented in the HPI. ROS Other: All systems not noted in ROS Statement are negative. Past Medical History Past Medical History: Hyperlipidemia, Hypertension, Osteoarthritis (OA), Thyroid Disorder Additional Past Medical History / Comment(s): kidney stones History of Any Multi-Drug Resistant Organisms: None Reported Past Surgical History: Appendectomy Additional Past Surgical History / Comment(s): thyroidectomy Past Anesthesia/Blood Transfusion Reactions: No Reported Reaction Past Psychological History: No Psychological Hx Reported Smoking Status: Never smoker Past Alcohol Use History: None Reported Past Drug Use History: None Reported - Past Family History Mother Family Medical History: No Reported History Father Family Medical History: Cancer General Exam Limitations: no limitations General appearance: alert, in distress Head exam: Present: atraumatic, normocephalic, normal inspection Eye exam: Present: normal appearance, PERRL, EOMI. Absent: scleral icterus, conjunctival injection, periorbital swelling ENT exam: Present: normal exam, mucous membranes moist Neck exam: Present: normal inspection. Absent: tenderness, meningismus, lymphadenopathy Respiratory exam: Present: normal lung sounds bilaterally. Absent: respiratory distress, wheezes, rales, rhonchi, stridor Cardiovascular Exam: Present: regular rate, irregular rhythm, normal heart sounds. Absent: systolic murmur, diastolic murmur, rubs, gallop, clicks GI/Abdominal exam: Present: soft, tenderness (right upper quadrant), normal bowel sounds. Absent: distended, guarding, rebound, rigid Extremities exam: Present: normal inspection, full ROM, normal capillary refill. Absent: tenderness, pedal edema, joint swelling, calf tenderness Back exam: Present: normal inspection Neurological exam: Present: alert, oriented X3, CN II-XII intact Psychiatric exam: Present: normal affect, normal mood Skin exam: Present: warm, dry, intact, normal color. Absent: rash Course Vital Signs 05/16/22 05/16/22 05/16/22 21:40 23:33 23:34 Temperature 98.3 F Pulse Rate 57 L 57 L 96 Pulse Rate [ Pulse Oximetery ] Respiratory 18 18 Rate Blood Pressure 109/72 112/88 Blood Pressure [Right Arm] O2 Sat by Pulse 96 Oximetry 05/17/22 05/17/22 05/17/22 00:03 00:55 03:12 Temperature Pulse Rate 96 96 90 Pulse Rate [ Pulse Oximetery ] Respiratory 16 18 18 Rate Blood Pressure 129/88 96/75 Blood Pressure [Right Arm] O2 Sat by Pulse 97 97 98 Oximetry 05/17/22 05/17/22 05/17/22 04:08 05:13 06:31 Temperature Pulse Rate 86 86 86 Pulse Rate [ Pulse Oximetery ] Respiratory 16 16 Rate Blood Pressure 92/52 98/65 96/62 Blood Pressure [Right Arm] O2 Sat by Pulse 96 97 97 Oximetry 05/17/22 05/17/22 05/17/22 08:00 12:19 14:51 Temperature 97.7 F 98 F 98.1 F Pulse Rate Pulse Rate [ 82 76 76 Pulse Oximetery ] Respiratory 16 16 16 Rate Blood Pressure Blood Pressure 100/71 107/85 114/100 [Right Arm] O2 Sat by Pulse 93 L 98 99 Oximetry 05/17/22 15:48 Temperature Pulse Rate Pulse Rate [ 80 Pulse Oximetery ] Respiratory Rate Blood Pressure Blood Pressure 107/85 [Right Arm] O2 Sat by Pulse Oximetry Medical Decision Making - Medical Decision Making Upon arrival patient was placed into room 9. Thorough history and physical exam was performed. Patient placed on continuous pulse ox and cardiac monitoring. He is notably in A. fib with a controlled ventricular rate. Denies history of A. fib. Laboratory studies are conducted. Patient went for a CT of his abdomen and pelvis which demonstrated signs of gastric enteritis. No signs of small bowel obstruction or ileus at this time. Patient was given morphine for pain control does admit to some improvement. Patient will be admitted to [facility] for bowel rest and cardio evaluation for new onset afib. - Lab Data Result diagrams: 05/17/22 07:42 05/17/22 07:42 Lab Results 05/16/22 05/16/22 05/16/22 Range/Units 23:03 23:03 23:03 WBC 8.7 (3.8-10.6) k/uL RBC 5.16 (4.30-5.90) m/uL Hgb 15.5 (13.0-17.5) gm/dL Hct 47.9 (39.0-53.0) % MCV 92.9 (80.0-100.0) fL MCH 30.0 (25.0-35.0) pg MCHC 32.3 (31.0-37.0) g/dL RDW 12.5 (11.5-15.5) % Plt Count 203 (150-450) k/uL MPV 8.2 Neutrophils % 71 % Lymphocytes % 20 % Monocytes % 6 % Eosinophils % 2 % Basophils % 1 % Neutrophils # 6.1 (1.3-7.7) k/uL Lymphocytes # 1.8 (1.0-4.8) k/uL Monocytes # 0.5 (0-1.0) k/uL Eosinophils # 0.2 (0-0.7) k/uL Basophils # 0.1 (0-0.2) k/uL Sodium 136 L (137-145) mmol/L Potassium 3.9 (3.5-5.1) mmol/L Chloride 101 (98-107) mmol/L Carbon Dioxide 26 (22-30) mmol/L Anion Gap 9 mmol/L BUN 20 (9-20) mg/dL Creatinine 0.67 (0.66-1.25) mg/dL Est GFR (CKD-EPI)AfAm >90 (>60 ml/min/1.73 sqM) Est GFR (CKD-EPI)NonAf >90 (>60 ml/min/1.73 sqM) Glucose 94 (74-99) mg/dL Plasma Lactic Acid [place] 0.8 (0.7-2.0) mmol/L Calcium 9.0 (8.4-10.2) mg/dL Total Bilirubin 1.1 (0.2-1.3) mg/dL AST 25 (17-59) U/L ALT 15 (4-49) U/L Alkaline Phosphatase 68 (38-126) U/L Total Protein 6.4 (6.3-8.2) g/dL Albumin 3.9 (3.5-5.0) g/dL Lipase 76 (23-300) U/L Urine Color Urine Appearance (Clear) Urine pH (5.0-8.0) Ur Specific [place] (1.001-1.035) Urine Protein (Negative) Urine Glucose (UA) (Negative) Urine Ketones (Negative) Urine Blood (Negative) Urine Nitrite (Negative) Urine Bilirubin (Negative) Urine Urobilinogen (<2.0) mg/dL Ur Leukocyte Esterase (Negative) 05/16/22 Range/Units 23:26 WBC (3.8-10.6) k/uL RBC (4.30-5.90) m/uL Hgb (13.0-17.5) gm/dL Hct (39.0-53.0) % MCV (80.0-100.0) fL MCH (25.0-35.0) pg MCHC (31.0-37.0) g/dL RDW (11.5-15.5) % Plt Count (150-450) k/uL MPV Neutrophils % % Lymphocytes % % Monocytes % % Eosinophils % % Basophils % % Neutrophils # (1.3-7.7) k/uL Lymphocytes # (1.0-4.8) k/uL Monocytes # (0-1.0) k/uL Eosinophils # (0-0.7) k/uL Basophils # (0-0.2) k/uL Sodium (137-145) mmol/L Potassium (3.5-5.1) mmol/L Chloride (98-107) mmol/L Carbon Dioxide (22-30) mmol/L Anion Gap mmol/L BUN (9-20) mg/dL Creatinine (0.66-1.25) mg/dL Est GFR (CKD-EPI)AfAm (>60 ml/min/1.73 sqM) Est GFR (CKD-EPI)NonAf (>60 ml/min/1.73 sqM) Glucose (74-99) mg/dL Plasma Lactic Acid [place] (0.7-2.0) mmol/L Calcium (8.4-10.2) mg/dL Total Bilirubin (0.2-1.3) mg/dL AST (17-59) U/L ALT (4-49) U/L Alkaline Phosphatase (38-126) U/L Total Protein (6.3-8.2) g/dL Albumin (3.5-5.0) g/dL Lipase (23-300) U/L Urine Color Yellow Urine Appearance Clear (Clear) Urine pH 5.5 (5.0-8.0) Ur Specific [place] 1.019 (1.001-1.035) Urine Protein Trace H (Negative) Urine Glucose (UA) Negative (Negative) Urine Ketones Negative (Negative) Urine Blood Negative (Negative) Urine Nitrite Negative (Negative) Urine Bilirubin Negative (Negative) Urine Urobilinogen <2.0 (<2.0) mg/dL Ur Leukocyte Esterase Negative (Negative) EKG demonstrates A. fib with rate of 91. QRS 105. QTC 381. Left bundle-branch block. No acute ST segment elevations 05/17/22 01:28 Critical Care Time Critical Care Time: Yes Critical Care Time: 35 minutes for new onset afib Disposition Clinical Impression: Abdominal pain, Gastroenteritis, New onset a-fib Disposition: ADMITTED IP TO THIS HOSP Condition: Stable Is patient prescribed a controlled substance at d/c from ED?: No Time of Disposition: : Decision to Admit Reason: Admit from EC Decision Date: 05/17/22 Decision Time: :
[2022-05-16 23:18] LABS: Basophils # (A) 0.1 k/uL (0-0.2); Basophils % (A) 1 %; Eosinophils # (A) 0.2 k/uL (0-0.7); Eosinophils % (A) 2 %; HCT 47.9 % (39.0-53.0); HGB 15.5 gm/dL (13.0-17.5); Lymphocytes # (A) 1.8 k/uL (1.0-4.8); Lymphocytes % (A) 20 %; MCHC 32.3 g/dL (31.0-37.0); MCV 92.9 fL (80.0-100.0); Mean Platelet Volume 8.2; Monocytes # (A) 0.5 k/uL (0-1.0); Monocytes % (A) 6 %; Neutrophils # (A) 6.1 k/uL (1.3-7.7); Neutrophils % (A) 71 %; Platelet Count 203 k/uL (150-450); RBC 5.16 m/uL (4.30-5.90); RDW 12.5 % (11.5-15.5); WBC 8.7 k/uL (3.8-10.6)
[2022-05-16] MEDS ORDERED: MORPHINE SULFATE 4 MG/ML SYRINGE IVP STA (23:26)
[2022-05-16 23:32] LABS: ALT 15 U/L (4-49); AST 25 U/L (17-59); African American GFR (CKD) >90 (>60 ml/min/1.73 sqM); Albumin 3.9 g/dL (3.5-5.0); Alkaline Phosphatase 68 U/L (38-126); Anion Gap 9 mmol/L; Blood Urea Nitrogen 20 mg/dL (9-20); Carbon Dioxide 26 mmol/L (22-30); Chloride 101 mmol/L (98-107); Glucose 94 mg/dL (74-99); Lipase 76 U/L (23-300); Non-African American GFR(CKD) >90 (>60 ml/min/1.73 sqM); Potassium 3.9 mmol/L (3.5-5.1); Sodium 136 mmol/L (137-145); Total Bilirubin 1.1 mg/dL (0.2-1.3); Total Protein 6.4 g/dL (6.3-8.2)
[2022-05-16] MEDS: SODIUM CHLORIDE 0.9% 1,000 ML IV SCH (23:34)
[2022-05-17 00:11] LABS: Appearance,Urine Clear (Clear); Bilirubin,Urine Negative (Negative); Blood,Urine Negative (Negative); Color,Urine Yellow; Glucose,Urine (UA) Negative (Negative); Ketones,Urine Negative (Negative); Leukocyte Esterase,Urine Negative (Negative); Nitrite,Urine Negative (Negative); PH, Urine 5.5 (5.0-8.0); Protein,Urine Trace (Negative); Specific Gravity,Urine 1.019 (1.001-1.035); Urobilinogen,Urine <2.0 mg/dL (<2.0)
--- NOTE | 2022-05-17 00:16 | CT ---
EXAMINATION TYPE: CT abdomen pelvis w con DATE OF EXAM: 05/16/2022 COMPARISON: 08/07/2020 HISTORY: abd pain CT DLP: 1092.5 mGycm Automated exposure control for dose reduction was used. CONTRAST: Performed with IV Contrast, patient injected with 100 mL of Isovue 300. Images obtained from the diaphragm to the floor the pelvis with the IV contrast. The lung bases are clear of consolidation. No pleural effusion. Heart is enlarged. No pericardial eff usion. Liver spleen stomach pancreas gallbladder appear intact. The bile duct are not dilated. There is no adrenal mass. Kidneys show satisfactory contrast opacification. There is no hydronephrosi s. Ureters are not dilated. There is no retroperitoneal adenopathy. There is 3 cm lateral right renal cortical cyst. There are bilateral renal parapelvic cysts. No hydronephrosis. Ureters are not dilate d. The bladder distends smoothly. There is small amount of low-density free fluid in the pelvis. Ther e are multiple sigmoid diverticula. No sign of diverticulitis. There is no mesenteric edema. No free air. No bowel obstruction. There is some small bowel wall thick ening in the mid abdomen is probably distal jejunum. Appendix is not seen. There is multilevel lumbar spondylotic changes. There is a first-degree L5-S1 spondylolisthesis. No l umbar compression fracture. Multilevel vacuum disc phenomenon is present in the lumbar spine. The bon y pelvis is intact. The hip joints are intact. There is mild thoracolumbar levoscoliosis. IMPRESSION: Cardiomegaly. There is some mild jejunal wall thickening in the mid abdomen. This could be some focal gastroenteritis. No bowel obstruction. There is some low density mild free fluid in the pelvis. This appears new compared to old exam. There is sigmoid diverticulosis without diverticulitis without change.
[2022-05-17] MEDS ORDERED: ONDANSETRON 4 MG/2 ML VIAL IVP PRN (01:57)
[2022-05-17] MEDS ORDERED: MORPHINE SULFATE 4 MG/ML SYRINGE IV PRN (01:57)
[2022-05-17] MEDS ORDERED: NALOXONE 0.4 MG/ML 1 ML VIAL IV PRN (01:57)
[2022-05-17] MEDS ORDERED: HEPARIN SODIUM 1,000 UN/ML (10ML VL) IV ONE (01:59)
[2022-05-17] MEDS ORDERED: HEPARIN SODIUM 1,000 UN/ML (10ML VL) IV PRN (01:59)
[2022-05-17] MEDS ORDERED: HEPARIN SOD,PORK IN 0.45% NACL 25,000 UNIT in 0.45% NACL 1 250ML.BAG IV SCH (02:00)
[2022-05-17] MEDS: SODIUM CHLORIDE 0.9% 1,000 ML IV SCH ×5 (02:55→23:37)
[2022-05-17] MEDS ORDERED: SODIUM CHLORIDE 0.9% 1,000 ML IV ONE (08:18)
[2022-05-17] MEDS: PANTOPRAZOLE 40 MG/10 ML VIAL IVP SCH (08:46)
[2022-05-17 08:52] LABS: Basophils % (A) 1 %; Eosinophils # (A) 0.2 k/uL (0-0.7); Eosinophils % (A) 3 %; HCT 43.6 % (39.0-53.0); HGB 14.4 gm/dL (13.0-17.5); Lymphocytes # (A) 1.5 k/uL (1.0-4.8); Lymphocytes % (A) 29 %; MCH 30.9 pg (25.0-35.0); MCHC 32.9 g/dL (31.0-37.0); MCV 93.9 fL (80.0-100.0); Mean Platelet Volume 7.8; Monocytes # (A) 0.3 k/uL (0-1.0); Monocytes % (A) 6 %; Neutrophils # (A) 3.1 k/uL (1.3-7.7); Neutrophils % (A) 60 %; Platelet Count 148 k/uL (150-450); RBC 4.65 m/uL (4.30-5.90); RDW 12.8 % (11.5-15.5); WBC 5.2 k/uL (3.8-10.6)
[2022-05-17 08:57] LABS: African American GFR (CKD) >90 (>60 ml/min/1.73 sqM); Anion Gap 3 mmol/L; Blood Urea Nitrogen 15 mg/dL (9-20); Calcium 7.9 mg/dL (8.4-10.2); Carbon Dioxide 25 mmol/L (22-30); Chloride 108 mmol/L (98-107); Glucose 92 mg/dL (74-99); Magnesium 1.9 mg/dL (1.6-2.3); Non-African American GFR(CKD) 88 (>60 ml/min/1.73 sqM); Potassium 4.2 mmol/L (3.5-5.1); Sodium 136 mmol/L (137-145)
--- NOTE | 2022-05-17 09:14 | P.HPIM ---
History of Present Illness This is a pleasant 76 years old male with past medical history of hypothyroidism, hypertension, hyperlipidemia ,Osteoarthritis He was recently in the hospital for acute small intestinal ileus for 1-2 days about couple months ago. He also has previous history of bowel obstruction pt presents because of sever abdominal pain of one day duration , the pain is periumbilcial in location with no radiation to other areas. There is pain as 10/10 on admission but now resolved with pain medication. He denies vomiting and he had a regular bowel movement last night with no blood. He denies any urinary symptoms, no chest pain or dyspnea or palpitation. He had mild headache which is gone now. However he denies dizziness, no limb weakness or numbness. Currently abdominal exam looks benign He denies smoking, alcohol or illicit drugs. He has an a dog at home whom he is worried he is jumping into his lap causing him the symptoms On admission he is hypertensive with systolic blood pressure in 90s, previous records indicates blood pressure is around 120 before her last admission. He is afebrile. He has unremarkable CBC, BMP, liver enzymes and urine analysis. EKG showing atrial fibrillation's with controlled rate at [address]-T changes CT of the abdomen and pelvis with contrast: Cardiomegaly and there is some mild regional wall thickening in the mid abdomen. This could be some focal gastroenteritis. No bowel obstruction. There is some low-density mild free fluid in the pelvis. This appears new compared to old exam. There is sigmoid diverticulosis without diverticulitis without change. In the emergency room patient was started on heparin drip and received morphine and normal saline. He was placed on clear liquid diet Review of Systems Review of systems CONSTITUTIONAL: No fever, no malaise, no fatigue. HEENT: No recent visual problems or hearing problems. Denied any sore throat. CARDIOVASCULAR: No orthopnea, PND, no palpitations, no syncope. PULMONARY: No shortness of breath, no cough, no hemoptysis. GASTROINTESTINAL: No diarrhea, no nausea, no vomiting, no abdominal pain. Normoactive bowel sounds. NEUROLOGICAL: No headaches, no weakness, no numbness. HEMATOLOGICAL: Denies any bleeding or petechiae. GENITOURINARY: Denies any burning micturition, frequency, or urgency. MUSCULOSKELETAL/RHEUMATOLOGICAL: Denies any joint pain, swelling, or any muscle pain. ENDOCRINE: Denies any polyuria or polydipsia. Past Medical History Past Medical History: Hyperlipidemia, Hypertension, Osteoarthritis (OA), Thyroid Disorder Additional Past Medical History / Comment(s): kidney stones History of Any Multi-Drug Resistant Organisms: None Reported Past Surgical History: Appendectomy Additional Past Surgical History / Comment(s): thyroidectomy Past Anesthesia/Blood Transfusion Reactions: No Reported Reaction Past Psychological History: No Psychological Hx Reported Smoking Status: Never smoker Past Alcohol Use History: None Reported Past Drug Use History: None Reported - Past Family History Mother Family Medical History: No Reported History Father Family Medical History: Cancer Medications and Allergies Home Medications Medication Instructions Recorded Confirmed Type Aspirin EC [Ecotrin Low Dose] 81 mg PO HS 06/08/16 05/17/22 History Dutasteride [Avodart] 0.5 mg PO DAILY 06/08/16 05/17/22 History Levothyroxine Sodium [Synthroid] 175 mcg PO DAILY 06/08/16 05/17/22 History Losartan Potassium [Cozaar] 100 mg PO DAILY 06/08/16 05/17/22 History Pravastatin Sodium 20 mg PO HS 06/08/16 05/17/22 History amLODIPine BESYLATE [Norvasc] 5 mg PO DAILY 06/08/16 05/17/22 History Tamsulosin [Flomax] 0.4 mg PO DAILY 03/29/22 05/17/22 History Meloxicam [Mobic] 7.5 mg PO DAILY 05/17/22 05/17/22 History Pennsaid 2% Pump Lenore 2 pump TOPICAL BID 05/17/22 05/17/22 History methylPREDNISolone Dose Pack See Taper PO DAILY 05/17/22 05/17/22 History [Medrol Dose Pack] Allergies Allergy/AdvReac Type Severity Reaction Status Date / Time No Known Allergies Allergy Verified 05/17/22 07:29 Physical Exam Vitals: Vital Signs Temp Pulse Resp BP Pulse Ox 05/17/22 06:31 86 96/62 97 05/17/22 05:13 86 16 98/65 97 05/17/22 04:08 86 16 92/52 96 05/17/22 03:12 90 18 96/75 98 05/17/22 00:55 96 18 97 05/17/22 00:03 96 16 129/88 97 05/16/22 23:34 96 05/16/22 23:33 57 L 18 112/88 05/16/22 21:40 98.3 F 57 L 18 109/72 96 Intake and Output 05/16/22 05/17/22 05/17/22 22:59 06:59 14:59 Other: Weight 92.986 kg GENERAL: The patient is alert and oriented x3, not in any acute distress. Well developed, well nourished. HEENT: Pupils are round and equally reacting to light. EOMI. No scleral icterus. No conjunctival pallor. Normocephalic, atraumatic. No pharyngeal erythema. No thyromegaly. CARDIOVASCULAR: S1 and S2 present. No murmurs, rubs, or gallops. PULMONARY: Chest is clear to auscultation, no wheezing or crackles. ABDOMEN: Soft, nontender, nondistended, normoactive bowel sounds. No palpable organomegaly. MUSCULOSKELETAL: No joint swelling or deformity. EXTREMITIES: No cyanosis, clubbing, or pedal edema. NEUROLOGICAL: Gross neurological examination did not reveal any focal deficits. SKIN: No rashes. no petechiae. Results CBC & Chem 7: 05/17/22 07:42 05/17/22 07:42 Labs: Abnormal Lab Results - Last 24 Hours (Table) 05/16/22 05/16/22 05/17/22 Range/Units 23:03 23:26 07:42 APTT 71.3 H (22.0-30.0) sec Sodium 136 L (137-145) mmol/L Urine Protein Trace H (Negative) Assessment and Plan Assessment: New onset atrial fibrillation, rate controlled Possible acute focal jejunitis/gastroenteritis, could be viral. No evidence of bacteria infection that requires antibiotics or bowel obstruction Hypotension and dehydration Hyperlipidemia Hypothyroidism Hypertension History of osteoarthritis History of recurrent bowel obstruction Plan: This is a pleasant 76 years old male who presents with A. fib and gastric an tritis Continue with heparin drip Cardiology consult Continue aggressive hydration. Given a bolus of normal saline Check procalcitonin. There is no evidence of infection that needs antibiotic, there is no fever or leukocytosis. We will keep monitoring while off antibiotics. Labs and medication were reviewed.. Continue same treatment. Continue with symptomatic treatment. Resume home medication. Monitor lytes and vitals. DVT and GI prophylaxis. Further recommendations as per clinical course of the patient DVT prophylaxis: heparin GI Prophylaxis: Ppi PT/OT: Pending Prognosis is guarded
--- NOTE | 2022-05-17 09:32 | P.CRDCN ---
History of Present Illness History of present illness: HISTORY OF PRESENTING ILLNESS Patient is a pleasant 76-year-old male with history of hypothyroidism, hypertension, hyperlipidemia, osteoarthritis who presents secondary to abdominal pain. He has had ileus in the past and states it felt very similar and has been ongoing over last 2 days. Denies any nausea, vomiting or hematochezia or melena. Therefore he presented to emergency department. He states that it has eased up and currently only minimal abdominal pain fairly central and rep roducible with palpation. He was found to be incidentally in A. fib with controlled ventricular rates. He admits to a "irregular heartbeat "however denies any definitive diagnosis of atrial fibrillation. Denies any history of stroke or TIA. Denies any hematochezia or melena. No chest pain or pressure. Only lightheaded if he stands up too quickly and no syncope. EKG shows atrial fibrillation with controlled ventricular rate, left axis deviation with Q waves 3, aVF, incomplete left bundle branch block. REVIEW OF SYSTEMS At the time of my exam: CONSTITUTIONAL: Denies fever or chills. CARDIOVASCULAR: Denies chest pain, shortness of breath, orthopnea, PND or palpitations. RESPIRATORY: Denies cough. GASTROINTESTINAL: +abdominal pain, no diarrhea, constipation, nausea or vomiting. MUSCULOSKELETAL: Denies myalgias. NEUROLOGIC: Denies numbness, tingling or weakness. ENDOCRINE: Denies fatigue, weight change, polydipsia or polyurina. GENITOURINARY: Denies burning, hematuria or urgency with micturation. HEMATOLOGIC: Denies history of anemia or bleeding. PHYSICAL EXAMINATION Vital signs reviewed. CONSTITUTIONAL: No apparent distress. HEENT: Head is normocephalic. Pupils are equal, round. Sclerae anicteric. Mucous membranes of the mouth are moist. No JVD. No carotid bruit. CHEST EXAMINATION: Lungs are clear to auscultation. No chest wall tenderness is noted on palpation or with deep breathing. HEART EXAMINATION: Irregular rate and rhythm. S1, S2 heard. No murmurs, gallops or rub. ABDOMEN: Soft, nontender. Positive bowel sounds. EXTREMITIES: 2+ peripheral pulses, no lower extremity edema and no calf tenderness. NEUROLOGIC EXAMINATION: Patient is awake, alert and oriented x3. ASSESSMENT 1. Persistent atrial fibrillation with controlled ventricular rates, newly diagnosed 2. Hypertension 3. Hyperlipidemia 4. Abdominal pain, predominantly improved appears a GI source PLAN Patient predominantly asymptomatic from atrial fibrillation and appears to be incidentally noted. Main presentation was abdominal pain which does not sound like any angina and is more reproducible on palpation. We will check troponin for completeness sake however does not appear to be related to angina. Discussed role of anticoagulation and patient is agreeable. Start Eliquis and stop heparin drip. Check 2-D echo and if unrevealing patient may be discharged home from a cardiology standpoint with outpatient follow-up in 1 week. Past Medical History Past Medical History: Hyperlipidemia, Hypertension, Osteoarthritis (OA), Thyroid Disorder Additional Past Medical History / Comment(s): kidney stones History of Any Multi-Drug Resistant Organisms: None Reported Past Surgical History: Appendectomy Additional Past Surgical History / Comment(s): thyroidectomy Past Anesthesia/Blood Transfusion Reactions: No Reported Reaction Past Psychological History: No Psychological Hx Reported Smoking Status: Never smoker Past Alcohol Use History: None Reported Past Drug Use History: None Reported - Past Family History Mother Family Medical History: No Reported History Father Family Medical History: Cancer Medications and Allergies Home Medications Medication Instructions Recorded Confirmed Type Aspirin EC [Ecotrin Low Dose] 81 mg PO HS 06/08/16 05/17/22 History Dutasteride [Avodart] 0.5 mg PO DAILY 06/08/16 05/17/22 History Levothyroxine Sodium [Synthroid] 175 mcg PO DAILY 06/08/16 05/17/22 History Losartan Potassium [Cozaar] 100 mg PO DAILY 06/08/16 05/17/22 History Pravastatin Sodium 20 mg PO HS 06/08/16 05/17/22 History amLODIPine BESYLATE [Norvasc] 5 mg PO DAILY 06/08/16 05/17/22 History Tamsulosin [Flomax] 0.4 mg PO DAILY 03/29/22 05/17/22 History Meloxicam [Mobic] 7.5 mg PO DAILY 05/17/22 05/17/22 History Pennsaid 2% Pump Lenore 2 pump TOPICAL BID 05/17/22 05/17/22 History methylPREDNISolone Dose Pack See Taper PO DAILY 05/17/22 05/17/22 History [Medrol Dose Pack] Allergies Allergy/AdvReac Type Severity Reaction Status Date / Time No Known Allergies Allergy Verified 05/17/22 07:29 Physical Exam Vitals: Vital Signs Temp Pulse Resp BP Pulse Ox 05/17/22 06:31 86 96/62 97 05/17/22 05:13 86 16 98/65 97 05/17/22 04:08 86 16 92/52 96 05/17/22 03:12 90 18 96/75 98 05/17/22 00:55 96 18 97 05/17/22 00:03 96 16 129/88 97 05/16/22 23:34 96 05/16/22 23:33 57 L 18 112/88 05/16/22 21:40 98.3 F 57 L 18 109/72 96 Intake and Output 05/16/22 05/17/22 05/17/22 22:59 06:59 14:59 Other: Weight 92.986 kg Results 05/17/22 07:42 05/17/22 07:42 Cardiac Enzymes 05/16/22 Range/Units 23:03 AST 25 (17-59) U/L Coagulation 05/17/22 Range/Units 07:42 APTT 71.3 H (22.0-30.0) sec CBC 05/16/22 05/17/22 Range/Units 23:03 07:42 WBC 8.7 5.2 (3.8-10.6) k/uL RBC 5.16 4.65 (4.30-5.90) m/uL Hgb 15.5 14.4 (13.0-17.5) gm/dL Hct 47.9 43.6 (39.0-53.0) % Plt Count 203 148 L (150-450) k/uL Comprehensive Metabolic Panel 05/16/22 05/17/22 Range/Units 23:03 07:42 Sodium 136 L 136 L (137-145) mmol/L Potassium 3.9 4.2 (3.5-5.1) mmol/L Chloride 101 108 H (98-107) mmol/L Carbon Dioxide 26 25 (22-30) mmol/L BUN 20 15 (9-20) mg/dL Creatinine 0.67 0.75 (0.66-1.25) mg/dL Glucose 94 92 (74-99) mg/dL Calcium 9.0 7.9 L (8.4-10.2) mg/dL AST 25 (17-59) U/L ALT 15 (4-49) U/L Alkaline Phosphatase 68 (38-126) U/L Total Protein 6.4 (6.3-8.2) g/dL Albumin 3.9 (3.5-5.0) g/dL Current Medications Generic Name Dose Route Start Last Admin Trade Name Freq PRN Reason Stop Dose Admin Apixaban 5 mg 05/17/22 09:30 Apixaban 5 Mg Tab PO BID [facility] Protocol Aspirin 81 mg 05/17/22 21:00 Aspirin 81 Mg PO HS [facility] Heparin Sodium (Porcine) 0 unit 05/17/22 01:59 Heparin Sodium 1,000 Un/Ml (10ml Vl) IV PER PROTOCOL PRN Low PTT Protocol Sodium Chloride 1,000 mls @ 130 mls/hr 05/16/22 23:30 05/16/22 23:34 Saline 0.9% IV 130 mls/hr .[id number] MARGY Administration Sodium Chloride 1,000 mls @ 75 mls/hr 05/17/22 02:00 05/17/22 02:55 Saline 0.9% IV 75 mls/hr .[id number] MARGY Administration Heparin Sodium/Sodium Chloride 250 mls @ 10 mls/hr 05/17/22 02:00 05/17/22 02:56 25,000 unit/ Sodium Chloride IV 10.7543 units/kg/hr .Q24H MARGY 10 mls/hr Administration Protocol 10.7543 UNITS/KG/HR Levothyroxine Sodium 176 mcg 05/17/22 09:30 Levothyroxine 88 Mcg Tab PO DAILY@0630 [facility] Morphine Sulfate 4 mg 05/17/22 01:57 Morphine Sulfate 4 Mg/Ml Syringe IV Q4HR PRN Severe Pain Naloxone HCl 0.2 mg 05/17/22 01:57 Naloxone 0.4 Mg/Ml 1 Ml Vial IV Q2M PRN Opioid Reversal Ondansetron HCl 4 mg 05/17/22 01:57 Ondansetron 4 Mg/2 Ml Vial IVP Q8HR PRN Nausea And Vomiting Pantoprazole Sodium 40 mg 05/17/22 09:00 05/17/22 08:46 Pantoprazole 40 Mg/10 Ml Vial IVP 40 mg DAILY MARGY Administration Pravastatin Sodium 20 mg 05/17/22 21:00 Pravastatin Sodium 20 Mg Tab PO HS [facility] Tamsulosin HCl 0.4 mg 05/18/22 09:00 Tamsulosin 0.4 Mg Cap.Er.24h PO DAILY MARGY Intake and Output 05/16/22 05/17/22 05/17/22 22:59 06:59 14:59 Other: Weight 92.986 kg 05/17/22 07:42 05/17/22 07:42
[2022-05-17] MEDS: LEVOTHYROXINE 88 MCG TAB PO SCH (09:58)
[2022-05-17] MEDS: APIXABAN 5 MG TAB PO SCH ×2 (09:58→21:17)
[2022-05-17] MEDS: ASPIRIN 81 MG PO SCH (21:17)
[2022-05-17] MEDS: PRAVASTATIN SODIUM 20 MG TAB PO SCH (21:44)
[2022-05-18] MEDS: LEVOTHYROXINE 88 MCG TAB PO SCH (06:01)
--- NOTE | 2022-05-18 07:24 | P.PN ---
Subjective Progress Note Date: 05/18/22 Principal diagnosis: The patient is a pleasant 76-year-old gentleman who was admitted to the hospital with abdominal discomfort. We consulted to see the patient because of atrial fibrillation which appeared to be chronic. The patient subsequently scheduled to undergo an echo. Also he wasn't started on oral anticoagulation. The patient was seen this morning. He is asymptomatic. He is hemodynamically stable with he continues to be in atrial fibrillation with a controlled heart rate. From the cardiovascular standpoint of view, the patient can be discharged home after we look into his echo. If the echo looks normal he potentially can be discharged home and follow-up with the cardiology Objective - Vital Signs Vital signs: Vital Signs Temp 97.8 F 05/18/22 05:00 Pulse 70 05/18/22 05:00 Resp 18 05/18/22 05:00 BP 119/78 05/18/22 05:00 Pulse Ox 96 05/18/22 05:00 FiO2 Intake & Output 05/17/22 05/18/22 05/18/22 18:59 06:59 18:59 Intake Total 1450 500 Output Total 1250 1000 Balance 200 -500 Weight 92.986 kg Intake: Intake, IV Titration 1450 Amount Sodium Chloride 0.9% 1, 450 000 ml @ 75 mls/hr IV . [id number] [facility] Rx#:[id number] Sodium Chloride 0.9% 1, 1000 000 ml @ 999 mls/hr IV . Q1H1M ONE Rx#:[id number] Oral 500 Output: Urine 1250 1000 Other: Voiding Method Toilet - Constitutional General appearance: Present: no acute distress - Respiratory Respiratory: bilateral: CTA - Cardiovascular Rhythm: regular Heart sounds: normal: S1, S2 - Labs CBC & Chem 7: 05/17/22 07:42 05/17/22 07:42 Labs: Abnormal Lab Results - Last 24 Hours (Table) 05/17/22 05/17/22 05/17/22 Range/Units 07:42 07:42 07:42 Plt Count 148 L (150-450) k/uL APTT 71.3 H (22.0-30.0) sec Sodium 136 L (137-145) mmol/L Chloride 108 H (98-107) mmol/L Calcium 7.9 L (8.4-10.2) mg/dL Assessment and Plan Assessment: Assessment #1 abdominal discomfort which has improved #2 permanent atrial fibrillation was controlled heart rate Plan #1 continue oral anticoagulation #2 follow-up on the echo #3 possible discharge in the next 12-24
[2022-05-18 09:07] LABS: Basophils # (A) 0.06 X 10*3/uL (0.00-0.10); Basophils % (A) 1.3 %; Eosinophils # (A) 0.17 X 10*3/uL (0.04-0.35); Eosinophils % (A) 3.6 %; HCT 41.2 % (39.6-50.0); HGB 13.4 g/dL (13.0-17.0); Immature Grans, Automated 0.2 %; Lymphocytes # (A) 1.68 X 10*3/uL (0.90-5.00); Lymphocytes % (A) 35.7 %; MCH 30.3 pg (27.0-32.0); MCHC 32.5 g/dL (32.0-37.0); MCV 93.2 fL (80.0-97.0); Mean Platelet Volume 11.1 fL (9.5-12.2); Monocytes # (A) 0.41 X 10*3/uL (0.20-1.00); Monocytes % (A) 8.7 %; NRBC Per 100 WBC 0 /100 WBCS (0.0-0.0); Neutrophils # (A) 2.37 X 10*3/uL (1.80-7.70); Neutrophils % (A) 50.5 %; Platelet Count 160 X 10*3/uL (140-440); RBC 4.42 X 10*6/uL (4.40-5.60); RDW 12.4 % (11.5-14.5)
[2022-05-18 09:20] LABS: INR 1.01 (0.90-1.11); Prothrombin Time 11.4 sec (9.9-11.9)
[2022-05-18 09:30] LABS: Anion Gap 8.3 mmol/L (10.00-18.00); BUN/Creat Ratio 13.85 Ratio (12.00-20.00); Blood Urea Nitrogen 11.3 mg/dL (9.0-27.0); Carbon Dioxide 24.5 mmol/L (20.0-27.5); Potassium 4.3 mmol/L (3.5-5.5)
[2022-05-18 09:31] LABS: African American GFR (CKD) 98.4 (60.0-200.0); Calcium 8.2 mg/dL (8.7-10.3); Magnesium 2.1 mg/dL (1.5-2.4); Non-African American GFR(CKD) 84.9 (60.0-200.0)
[2022-05-18] MEDS: TAMSULOSIN 0.4 MG CAP.ER.24H PO SCH (09:46)
[2022-05-18] MEDS: APIXABAN 5 MG TAB PO SCH ×2 (09:46→22:05)
[2022-05-18] MEDS: PANTOPRAZOLE 40 MG/10 ML VIAL IVP SCH (09:47)
--- NOTE | 2022-05-18 10:02 | CA ---
Transthoracic Echo Report Name: Clarence Holguin Age: 76 Gender: M : 1945 Exam Date: 05/17/2022 13:57 Exam Location: [facility] Ht (in): 72 Wt (lb): 205 Ordering Physician: Adam Denney DO ([email or web address]) Attending/Referring Phys: Wet Process Assistant Head Miller Nyasia Krishnan, JUAN Procedure CPT: Indications: re: AFib, chest pain Cardiac Hx: Technical Quality: Good Contrast 1: Total Dose (mL): Contrast 2: Total Dose (mL): MEASUREMENTS (Male / Female) Normal Values 2D ECHO LV Diastolic Diameter PLAX 5.0 cm 4.2 - 5.9 / 3.9 - 5.3 cm LV Systolic Diameter PLAX 4.3 cm IVS Diastolic Thickness 1.3 cm 0.6 - 1.0 / 0.6 - 0.9 cm LVPW Diastolic Thickness 1.5 cm 0.6 - 1.0 / 0.6 - 0.9 cm LV Relative Wall Thickness 0.6 RV Internal Dim ED PLAX 3.0 cm LA Systolic Diameter LX 4.2 cm 3.0 - 4.0 / 2.7 - 3.8 cm LA Volume 144.6 cm??? 18 - 58 / 22 - 52 cm??? M-MODE Aortic Root Diameter MM 3.5 cm MV E Point Septal Separation 0.3 cm AV Cusp Separation MM 1.9 cm DOPPLER TR Peak Velocity 210.1 cm/s TR Peak Gradient 17.7 mmHg Right Ventricular Systolic Press 22.7 mmHg FINDINGS Left Ventricle Left ventricular ejection fraction is estimated at 50-55 %. Mildly increased left ventricular wall thickness. Right Ventricle Normal right ventricular size and function. Right Atrium Normal right atrial size. Left Atrium Mildly increased left atrial diameter. Severely increased left atrial volume. Moderately increased left atrial area. Mitral Valve Structurally normal mitral valve. Mild to moderate mitral regurgitation. Aortic Valve Aortic valve sclerosis. Tricuspid Valve Structurally normal tricuspid valve. Mild tricuspid regurgitation. Pulmonic Valve Structurally normal pulmonic valve. Pericardium Normal pericardium. Aorta Normal size aortic root and proximal ascending aorta. CONCLUSIONS Normal left ventricular dimension and systolic function Mild concentric LVH Aortic sclerosis Mild to moderate MR Previewed by: Dr. Elder Gomes MD (Electronically Signed) Final Date: 18 May 2022 10:01
--- NOTE | 2022-05-18 20:05 | P.PN ---
Subjective This is a pleasant 76 years old male with past medical history of hypothyroidism, hypertension, hyperlipidemia ,Osteoarthritis He was recently in the hospital for acute small intestinal ileus for 1-2 days about couple months ago. He also has previous history of bowel obstruction pt presents because of sever abdominal pain of one day duration , the pain is periumbilcial in location with no radiation to other areas. There is pain as 10/10 on admission but now resolved with pain medication. He denies vomiting and he had a regular bowel movement last night with no blood. He denies any urinary symptoms, no chest pain or dyspnea or palpitation. He had mild headache which is gone now. However he denies dizziness, no limb weakness or numbness. Currently abdominal exam looks benign He denies smoking, alcohol or illicit drugs. He has an a dog at home whom he is worried he is jumping into his lap causing him the symptoms On admission he is hypertensive with systolic blood pressure in 90s, previous records indicates blood pressure is around 120 before her last admission. He is afebrile. He has unremarkable CBC, BMP, liver enzymes and urine analysis. EKG showing atrial fibrillation's with controlled rate at [address]-T changes CT of the abdomen and pelvis with contrast: Cardiomegaly and there is some mild regional wall thickening in the mid abdomen. This could be some focal gastroenteritis. No bowel obstruction. There is some low-density mild free fluid in the pelvis. This appears new compared to old exam. There is sigmoid diverticulosis without diverticulitis without change. In the emergency room patient was started on heparin drip and received morphine and normal saline. He was placed on clear liquid diet 05/18/2022 Patient Status is stable, is no more tachycardic, no chest pain or dyspnea or other cardiac symptoms, he was started on Eliquis and kept on metoprolol and his rate is controlled now and actually he is been cleared for discharge by forestry adviser. The patient wanted to go home today however on further encounter and evaluation is still have some abdominal discomfort, he has 2 bowel movement in the morning which is unusual for him, usually he has to bowel movement over the whole day. Also there was some issue with his appetite therefore he agrees to stay with deep monitoring for 24 hours if not more distal he improves. On checking him later on his abdominal pain improved was started having some postural symptoms. Therefore the deep monitoring for now. This casino manager consult for Eliquis co-pay. As per cardiology team patient should be on both aspirin and Eliquis, as per bedside nurse Objective - Vital Signs Vital signs: Vital Signs Temp 97.8 F 05/18/22 05:00 Pulse 74 05/18/22 10:25 Resp 18 05/18/22 08:40 BP 123/69 05/18/22 10:25 Pulse Ox 96 05/18/22 05:00 FiO2 Intake & Output 05/17/22 05/18/22 05/18/22 18:59 06:59 18:59 Intake Total 1450 500 Output Total 1250 1000 Balance 200 -500 Weight 92.986 kg Intake: Intake, IV Titration 1450 Amount Sodium Chloride 0.9% 1, 450 000 ml @ 75 mls/hr IV . [id number] MARGY Rx#:[id number] Sodium Chloride 0.9% 1, 1000 000 ml @ 999 mls/hr IV . Q1H1M ONE Rx#:[id number] Oral 500 Output: Urine 1250 1000 Other: Voiding Method Toilet Toilet - Exam GENERAL: The patient is alert and oriented x3, not in any acute distress. Well developed, well nourished. HEENT: Pupils are round and equally reacting to light. EOMI. No scleral icterus. No conjunctival pallor. Normocephalic, atraumatic. No pharyngeal erythema. No thyromegaly. CARDIOVASCULAR: S1 and S2 present. No murmurs, rubs, or gallops. PULMONARY: Chest is clear to auscultation, no wheezing or crackles. ABDOMEN: Soft, nontender, nondistended, normoactive bowel sounds. No palpable organomegaly. MUSCULOSKELETAL: No joint swelling or deformity. EXTREMITIES: No cyanosis, clubbing, or pedal edema. NEUROLOGICAL: Gross neurological examination did not reveal any focal deficits. SKIN: No rashes. no petechiae. - Labs CBC & Chem 7: 05/18/22 04:07 05/18/22 04:07 Labs: Abnormal Lab Results - Last 24 Hours (Table) 05/18/22 Range/Units 04:07 Chloride 111 H (96-109) mmol/L Anion Gap 8.30 L (10.00-18.00) mmol/L Calcium 8.2 L (8.7-10.3) mg/dL Assessment and Plan Assessment: New onset atrial fibrillation, rate controlled Possible acute focal jejunitis/gastroenteritis, could be viral. No evidence of bacteria infection that requires antibiotics , no evidence of bowel obstruction Hypotension and dehydration Hyperlipidemia Hypothyroidism Hypertension History of osteoarthritis History of recurrent bowel obstruction Plan: This is a pleasant 76 years old male who presents with A. fib and gastric antritis Continue with Eliquis, also continue with aspirin. [employer]inder. [place] and explained for the patient and he verbalized understanding and acceptance Cardiology consult are clear the patient for discharge Continue with IV hydration No need for antibiotic Keep monitoring the patient Labs and medication were reviewed.. Continue same treatment. Continue with symptomatic treatment. Resume home medication. Monitor lytes and vitals. DVT and GI prophylaxis. Further recommendations as per clinical course of the patient DVT prophylaxis: heparin GI Prophylaxis: Ppi Possible discharge in 24-48 hours if he keeps improving
[2022-05-18] MEDS: PRAVASTATIN SODIUM 20 MG TAB PO SCH (22:05)
[2022-05-18] MEDS: ASPIRIN 81 MG PO SCH (22:05)
[2022-05-19] MEDS: SODIUM CHLORIDE 0.9% 1,000 ML IV SCH ×2 (08:36→08:38)
[2022-05-19] MEDS: PANTOPRAZOLE 40 MG/10 ML VIAL IVP SCH (08:37)
[2022-05-19] MEDS: TAMSULOSIN 0.4 MG CAP.ER.24H PO SCH (08:37)
[2022-05-19] MEDS: APIXABAN 5 MG TAB PO SCH (08:37)
[2022-05-19] MEDS: LEVOTHYROXINE 88 MCG TAB PO SCH (08:38)
[2022-05-19 13:03] VITALS: BP 123/77; PULSE 80; RESP 16; TEMP 98.2
--- NOTE | 2022-05-19 13:20 | P.PN ---
Subjective Progress Note Date: 05/19/22 Principal diagnosis: A. FIB The patient is a pleasant 76-year-old gentleman who was admitted to the hospital with abdominal discomfort. We consulted to see the patient because of atrial fibrillation which appeared to be chronic. The patient subsequently scheduled to undergo an echo. Also he was started on oral anticoagulation. The patient was seen this morning. He remains asymptomatic. He underwent an echo which revealed normal LV function with mild to moderate mitral regurgitation. He is on oral anticoagulation. From a cardiovascular standpoint of view, the patient can be discharged Objective - Vital Signs Vital signs: Vital Signs Temp 98.2 F 05/19/22 13:00 Pulse 80 05/19/22 13:00 Resp 16 05/19/22 13:00 BP 123/77 05/19/22 13:00 Pulse Ox 97 05/19/22 13:00 FiO2 Intake & Output 05/18/22 05/19/22 05/19/22 18:59 06:59 18:59 Intake Total 222 Balance 222 Intake: Oral 222 Other: Voiding Method Toilet Toilet Toilet # Voids 3 1 - Constitutional General appearance: Present: no acute distress - Respiratory Respiratory: bilateral: CTA - Cardiovascular Rhythm: regular Heart sounds: normal: S1, S2 - Labs CBC & Chem 7: 05/18/22 04:07 05/18/22 04:07 Assessment and Plan Assessment: Assessment #1 abdominal discomfort which has improved #2 permanent atrial fibrillation was controlled heart rate Plan #1 continue oral anticoagulation #2 the patient can be discharged
--- NOTE | 2022-05-19 21:31 | P.DS ---
Providers Date of admission: 05/17/22 01:57 Attending physician: Silver Hoyt Consults: 05/17/22 01:57 Consult Physician Urgent Consulting Provider: [facility] Consult Reason/Comments: new onset afib Do you want consulting provider notified?: Yes Primary care physician: Julian Cheng Hospital Course: Diagnoses: New onset atrial fibrillation, rate controlled Possible acute focal jejunitis/gastroenteritis, could be viral. Completely resolved Hypotension and dehydration. Resolved Hyperlipidemia Hypothyroidism Hypertension History of osteoarthritis History of recurrent bowel obstruction Hospital course: This is a pleasant 76 years old male with past medical history of hypothyroidism, hypertension, hyperlipidemia ,Osteoarthritis The presents with signs symptoms of gastroenteritis of abdominal pain and vomiting and diarrhea.CT of the abdomen and pelvis with contrast: Cardiomegaly and there is some mild regional wall thickening in the mid abdomen. This could be some focal gastroenteritis. No bowel obstruction. He was treated conservatively and showed interval improvement. Today his abdominal pain completely resolved, he tolerated diet and he has regular bowel movement and he wants to go home. Education Adviser start him on a Eliquis and his rate control. Patient agreeable with the co-pay for Eliquis. Risks of bleeding spell for him and he verbalized understanding and acceptance as well as the benefits and risks. Discontinue aspirin per my discussion with Dr. Barney, patient informed and he agrees. Patient was cleared for discharge by inside sales supervisor. Problems and management plan were discussed with the patient and he verbalized understanding and acceptance Patient was found stable and can be discharged home however he needs follow-up as an outpatient. Patient was instructed to follow up with PCP Dr. Cheng within one week and patient agrees Patient was instructed to follow-up with inside sales supervisor Dr. Denney in 1 week and he agrees to call and make appointment Physical exam Gen: patient is a AAOx3, no distress CVS: S1-S2, RRR, no murmur Lungs: B/L CTA, no wheezing Abdomen: soft, no distention, no tenderness, positive bowel sounds Extremity: no leg edema or induration Time spent more than 35 minutes Patient Condition at Discharge: Stable Plan - Discharge Summary Discharge Rx Participant: No New Discharge Prescriptions: New Omeprazole 20 mg PO DAILY #30 tab Apixaban [Eliquis] 5 mg PO BID 30 Days #60 tab Continue Pravastatin Sodium 20 mg PO HS Levothyroxine Sodium [Synthroid] 175 mcg PO DAILY Dutasteride [Avodart] 0.5 mg PO DAILY Tamsulosin [Flomax] 0.4 mg PO DAILY Pennsaid 2% Pump Lenore 2 pump TOPICAL BID Discontinued Aspirin EC [Ecotrin Low Dose] 81 mg PO HS amLODIPine BESYLATE [Norvasc] 5 mg PO DAILY Losartan Potassium [Cozaar] 100 mg PO DAILY Meloxicam [Mobic] 7.5 mg PO DAILY methylPREDNISolone Dose Pack [Medrol Dose Pack] See Taper PO DAILY Discharge Medication List Dutasteride [Avodart] 0.5 mg PO DAILY 06/08/16 [History] Levothyroxine Sodium [Synthroid] 175 mcg PO DAILY 06/08/16 [History] Pravastatin Sodium 20 mg PO HS 06/08/16 [History] Tamsulosin [Flomax] 0.4 mg PO DAILY 03/29/22 [History] Pennsaid 2% Pump Lenore 2 pump TOPICAL BID 05/17/22 [History] Apixaban [Eliquis] 5 mg PO BID 30 Days #60 tab 05/18/22 [Rx] Omeprazole 20 mg PO DAILY #30 tab 05/18/22 [Rx] Follow up Appointment(s)/Referral(s): Julian Cheng MD [Primary Care Provider] - 05/21/22 1:30 pm Adam Denney DO [STAFF PHYSICIAN] - 05/24/22 1:30 pm (You will be seen at the [address] you will be seeing .If this appointment does not match your schedule please call and reschedule.) Patient Instructions/Handouts: Omeprazole (By mouth), Apixaban (By mouth), A- fib (Atrial Fibrillation) (DC) Activity/Diet/Wound Care/Special Instructions: heart healthy diet activity is restricted till you see your doctor Discharge Disposition: HOME SELF-CARE
== END 2022-05-19 15:06 | disposition home or self-care (01) ==
LOC: EC 21:33 → 3SCARD 05-17 01:57 → 5NMEDONC 05-17 13:04
PROVIDERS: ADMIT Internal Medicine; ATTEND Internal Medicine
DX: I48.21 Permanent atrial fibrillation (principal); E86.0 Dehydration; I95.9 Hypotension, unspecified; E78.5 Hyperlipidemia, unspecified; E89.0 Postprocedural hypothyroidism; I44.7 Left bundle-branch block, unspecified; I11.9 Hypertensive heart disease without heart failure; K57.30 Diverticulosis of large intestine without perforation or abscess without bleeding; M43.17 Spondylolisthesis, lumbosacral region; I08.3 Combined rheumatic disorders of mitral, aortic and tricuspid valves; M41.85 Other forms of scoliosis, thoracolumbar region; Z79.890 Hormone replacement therapy; Z79.899 Other long term (current) drug therapy; Z79.1 Long term (current) use of non-steroidal anti-inflammatories (NSAID); Z80.9 Family history of malignant neoplasm, unspecified; Z79.01 Long term (current) use of anticoagulants
CPT/HCPCS: 96376 ×3; 96361 ×3; 96360; 96365; 96366; 96375 ×2; 99291; 36415; 93005; 93306; 97161; 97165; 80053; 80048 ×2; 83605; 83690; 83735 ×2; 84484; 85025 ×3; 85610; 85730; 81003; 84145; 74177; G0378 ×3; J2270; J1644 ×2; C9113 ×3

== ENCOUNTER → 2022-08-19 | Outpatient (CLI) | payer OTHER ==
--- NOTE | 2022-08-19 15:28 | US ---
EXAMINATION TYPE: US carotid duplex BILAT DATE OF EXAM: 08/19/2022 COMPARISON: NONE CLINICAL HISTORY: [id number] CAROTID ARTERY STENOSIS. Dizziness. TECHNIQUE: Carotid duplex ultrasound examination. Indirect Doppler criteria was utilized. FINDINGS: EXAM MEASUREMENTS: RIGHT: Peak Systolic Velocity (PSV) cm/sec ----- Right CCA: 43.7 ----- Right ICA: 64.1 ----- Right ECA: 59.8 ICA/CCA ratio: 1.5 RIGHT: End Diastole cm/sec ----- Right CCA: 11.2 ----- Right ICA: 17.1 ----- Right ECA: 8.0 LEFT: Peak Systolic Velocity (PSV) cm/sec ----- Left CCA: 51.9 ----- Left ICA: 43.1 ----- Left ECA: 69.9 ICA/CCA ratio: 0.83 LEFT: End Diastole cm/sec ----- Left CCA: 12.1 ----- Left ICA: 17.8 ----- Left ECA: 10.1 VERTEBRALS (direction of flow): Right Vertebral: Antegrade Left Vertebral: Antegrade Rhythm: Normal [place] NOTES: Torturous bilateral ICA's. No significant stenosis seen IMPRESSION: Less than 50% stenosis of the bilateral carotid bifurcations. Criteria for Assigning % of Stenosis / Diameter reduction (Estimation based on the indirect measurements of the internal carotid artery velocities (ICA PSV). 1. Normal (no stenosis)=ICA PSV < 125 cm/s: ratio < 2.0: ICA EDV<40 cm/s. 2. Less than 50% stenosis=ICA PSV < 125 cm/s: ratio < 2.0: ICA EDV<40 cm/s. 3. 50 to 69% stenosis=ICA PSV of 125 to 230 cm/s: ration 2.0 ? 4.0: ICA EDV 40-100 cm/s. 4. Greater than 70% stenosis to near occlusion= ICA PSV > 230 cm/s: ratio > 4.0: ICA EDV > 100 cm/s. 5. Near occlusion= ICA PSV velocities may be low or undetectable: variable ratio and ICA EDV. 6. Total occlusion=unable to detect flow.
--- NOTE | 2022-08-19 15:45 | CT ---
EXAMINATION TYPE: CT brain wo con CT DLP: 1217.10 mGycm, Automated exposure control for dose reduction was used. DATE OF EXAM: 08/19/2022 3:39 PM COMPARISON: Prior CT Brain from 11/12/2021. CLINICAL INDICATION:Male, 76 years old with history of G45.9 TRANSIENT CEREBRAL ISCHEMIC ATTACK, UNSP ECIF, dizziness, headache and change in vision [id number] TECHNIQUE: Brain: Multiple axial CT images of the brain were obtained without IV contrast. Coronal and sagittal reformats reviewed. FINDINGS: Brain: Extra-axial spaces: No abnormal extra-axial fluid collections. Ventricular system: Dilatation in proportion to cerebral atrophy. Cerebral parenchyma: No acute intraparenchymal hemorrhage or mass effect. The carvajal-white junction is well differentiated. Scattered hypoattenuating areas are seen within the white matter. Cerebral volu me loss. Cerebellum: Unremarkable. Mass effect: No evidence of midline shift. Intracranial vasculature: Atherosclerotic calcifications of the intracranial vessels. Soft tissues: Normal. Calvarium/osseous structures: No depressed skull fracture. Paranasal sinuses and mastoid air cells: Small mucous retention cysts within the bilateral maxillary sinuses. The mastoid air cells are clear. Visualized orbits: The lenses are surgically removed from the globes. IMPRESSION: 1. No acute intracranial process. No significant change prior examination. 2. Nonspecific white matter changes, likely secondary to chronic small vessel ischemic disease.
== END | disposition home or self-care (01) ==
LOC: RADCTMAIN 14:09
PROVIDERS: ATTEND Family Medicine
DX: I65.23 Occlusion and stenosis of bilateral carotid arteries (principal); R90.82 White matter disease, unspecified; I67.82 Cerebral ischemia; Z86.73 Personal history of transient ischemic attack (TIA), and cerebral infarction without residual deficits
CPT/HCPCS: 70450; 93880

== ENCOUNTER → 2023-12-13 | Outpatient (CLI) | payer OTHER ==
--- NOTE | 2023-12-13 15:02 | CT ---
EXAMINATION TYPE: CT brain wo con DATE OF EXAM: 12/13/2023 COMPARISON: 08/19/2022. HISTORY: Headache. CT DLP: 1233 mGycm Automated exposure control for dose reduction was used. FINDINGS: There is no acute intracranial hemorrhage, mass, mass effect, midline shift, extra-axial fluid collec tion or hydrocephalus. There is no acute major vessel infarct identified. Visualized paranasal sinuses and mastoid air cells are clear. IMPRESSION: NO ACUTE INTRACRANIAL PROCESS.
== END | disposition home or self-care (01) ==
LOC: RADCTMAIN 13:44
PROVIDERS: ATTEND Family Medicine
DX: R51.9 Headache, unspecified (principal)
CPT/HCPCS: 70450

== ENCOUNTER → 2024-01-06 | Day surgery (SDC) | payer OTHER ==
[2024-01-03 15:46] VITALS: BMI 27.1
[~2024-01-06] MED LIST changes: +HYDROmorphone 0.5 MG/0.5 ML SYRINGE IVP PRN; +LIDOCAINE 1% (10MG/ML) FOR IV START INTRADERMA PRN; -LIDOCAINE 1% 20 ML VIAL (10MG/ML) FOR IV START INTRADERMA PRN; +LIDOCAINE 1% INJ 10MG/ML (20 ML MDV) ONE; +PHENYLEPHRINE 10 MG/ML VIAL ONE; +PROPOFOL 10 MG/ML 20 ML VIAL IV ONE; +Pre Op ABX Message 1 EACH MISC MISCELLANE ONE; +SUCCINYLCHOLINE CHLORIDE 200 MG/10 ML VIAL IV ONE; +fentaNYL (PF) 50 MCG/ML 2 ML AMP ONE
[2024-01-06] MEDS: LACTATED RINGERS 1,000 ML IV ONE ×2 (06:26→08:26)
--- NOTE | 2024-01-06 06:28 | P.GSHP ---
History of Present Illness H&P Date: 01/06/24 CHIEF COMPLAINT: Skin cancer HISTORY OF PRESENT ILLNESS: The patient is a 78 year-old male with biopsy-proven skin cancer of the upper back less than 3 weeks ago. He has personal history of sun damage and sun worshiping. He presents today for surgical excision. PAST MEDICAL HISTORY: Please see list. PAST SURGICAL HISTORY: Please see list. MEDICATIONS: Please see list. ALLERGIES: Please see list. SOCIAL HISTORY: Please see list. FAMILY HISTORY: No reports of Crohn disease or ulcerative colitis. REVIEW OF ORGAN SYSTEMS: CONSTITUTIONAL: Denies any fever or chills. Denies recent weight loss or weight gain. HEENT: Denies any trouble with vision, hearing or nosebleeds. No difficulty swallowing. LYMPHATIC: The patient denies any lumps and bumps around the neck. ENDOCRINE: Denies any thyroid disorders. Denies any blood sugar glucose intolerance. RESPIRATORY: Denies pneumonia. Denies any troubles with breathing or dyspnea on exertion. CARDIOVASCULAR: Arrhythmia and hypertensive heart disease. GASTROINTESTINAL: Denies heart burn, constipation or bright red blood per rectum. GENITOURINARY: Denies any blood in urine or increased urinary frequency. MUSCULOSKELETAL: Has back pain, stiffness, joint arthritis. NEUROLOGIC: Denies any numbness or tingling along the distal extremities. No seizure disorders or headaches. PSYCHIATRIC: Denies depression or suidical ideation. HEMATOLOGIC: On chronic blood thinners. BREASTS: Denies any breast lumps, pain or nipple discharge. SKIN: Has severe sun damage to the skin including past skin cancer. PHYSICAL EXAM: VITAL SIGNS: Stable Musculoskeletal: No clubbing cyanosis or edema SKIN: Upper midline skin lesion 3 cm. Moderate actinic keratoses GENERAL: Well developed and in no acute distress. Pleasant. HEENT: No sclera icterus. Extraocular movements grossly intact. Moist buccal mucosa. Head is atraumatic, normocephalic. Hears conversational speech. No nasal drainage. NECK: Supple without lymphadenopathy. No JV distention. CHEST: Non-labored respirations and equal bilateral excursions. CARDIOVASCULAR: Regular rate and rhythm. Palpable 2+ radial pulses. ABDOMEN: Soft. Non-tender. Nondistended. NEUROLOGIC: No focal or lateralizing signs. PSYCH: Appropriate affect. Alert and oriented to person, place and time. ASSESSMENT: 1. Skin cancer upper back 2. Chronic anticoagulant use 3. Fibrillation PLAN: 1. Will proceed of excision of skin cancer upper back 2. DVT prophylaxis. 3. Antibiotic prophylaxis. 4. Time of recovery, at least one week. 5. He is elevated risk due to chronic blood thinners and increased risk of bleeding Past Medical History Past Medical History: Hearing Disorder / Deafness, Hyperlipidemia, Hypertension, Osteoarthritis (OA), Thyroid Disorder Additional Past Medical History / Comment(s): Hx murmur. Tinnitus, bilateral hearing aid use. Hx kidney stones. History of Any Multi-Drug Resistant Organisms: None Reported Past Surgical History: Appendectomy, Joint Replacement Additional Past Surgical History / Comment(s): Thyroidectomy, left shoulder replacement. Past Anesthesia/Blood Transfusion Reactions: No Reported Reaction, Motion Sickness Additional Past Anesthesia/Blood Transfusion Reaction / Comment(s): Hx sea sickness X1 many yrs ago. Past Psychological History: PTSD Smoking Status: Never smoker Past Alcohol Use History: None Reported Past Drug Use History: None Reported - Past Family History Mother Family Medical History: No Reported History Father Family Medical History: Cancer Medications and Allergies Home Medications Medication Instructions Recorded Confirmed Type Dutasteride [Avodart] 0.5 mg PO DAILY 06/08/16 01/03/24 History Levothyroxine Sodium [Synthroid] 175 mcg PO DAILY 06/08/16 01/03/24 History Pravastatin Sodium 20 mg PO HS 06/08/16 01/03/24 History Tamsulosin [Flomax] 0.4 mg PO DAILY 03/29/22 01/03/24 History Apixaban [Eliquis] 5 mg PO BID 30 Days #60 tab 05/18/22 01/03/24 Rx Arnica 120 ml TOPICAL Q48H 01/03/24 01/03/24 History Omeprazole 20 mg PO QAM 01/03/24 01/03/24 History Operations Manager Station Analgesic Gel 1 applic TOPICAL Q48H 01/03/24 01/03/24 History Allergies Allergy/AdvReac Type Severity Reaction Status Date / Time No Known Allergies Allergy Verified 01/03/24 14:07
[2024-01-06] MEDS: HEPARIN SODIUM,PORCINE 5,000 UNIT/ML 1 ML VIAL SQ PRN (06:56)
[2024-01-06] MEDS: ACETAMINOPHEN TAB 500 MG TAB PO PRN (06:56)
[2024-01-06] MEDS: ONDANSETRON 4 MG/2 ML VIAL IVP PRN (06:56)
[2024-01-06] MEDS: DEXAMETHASONE SOD PHOSPHATE 4 MG/ML 1 ML VIAL IVP ONE (06:56)
[2024-01-06 07:13] VITALS: RESP 16
[2024-01-06] MEDS: SODIUM CHLORIDE 0.9% 50 ML with ceFAZolin 2,000 MG IV ONE (07:30)
[2024-01-06] MEDS: LIDOCAINE 1%-EPI 1:100,000 20 ML VIAL SQ ONE ×2 (08:05)
--- NOTE | 2024-01-06 08:56 | P.OP ---
Date of Procedure: 01/06/24 Description of Procedure: SURGEON: KAY TRUJILLO MD PREOPERATIVE DIAGNOSES: 1. Mid upper back malignant neoplasm 2. Atrial fibrillation 3. Chronic anticoagulant use 4. Hyperlipidemia 5. Gastroesophageal reflux disease 6. Hypothyroidism 7. Benign prostatic hyperplasia with enlarged prostate 8. Actinic keratoses throughout back POSTOPERATIVE DIAGNOSES: 1. Mid upper back malignant neoplasm, 2 cm 2. Atrial fibrillation 3. Chronic anticoagulant use 4. Hyperlipidemia 5. Gastroesophageal reflux disease 6. Hypothyroidism 7. Benign prostatic hyperplasia with enlarged prostate 8. Actinic keratoses throughout back PROCEDURES PERFORMED: 1. Excision of malignant neoplasm upper back, 3 x 7 cm 2. Complex closure upper back incision, 7 cm Anesthesia: GETA, local Estimated Blood Loss (ml): 20 Pathology: other (back mass) Condition: stable Disposition: same day COMPLICATIONS: None. Operative Findings: 1. Excision of 3 x 7 cm biopsy-proven malignant neoplasm INDICATIONS: The patient is a 78-year-old male who presents with biopsy-proven malignant neoplasm of the upper back. He is on blood thinners. Benefits and risks of surgical intervention were described including bleeding, infection, seroma, pain and recurrence. Informed consent was obtained. DESCRIPTION OR PROCEDURE: In the preoperative area, the area of concern was marked with indelible marker. Patient was brought into the operating room. After general induction, he was positioned in prone position. The back was prepped and draped in a standard sterile fashion with ChloraPrep. Timeout protocol was confirmed with the surgical team regarding the patient's name, procedure to be performed including preoperative medications. DVT prophylaxis was confirmed. Malignancy was measured 2 cm with 0.5 cm borders obtain total blood post excision 3 x 7 cm. A field block was placed of the upper back. An transverse elliptical incision using #15 blade was made along the marking into the dermis and subcutaneous tissue. Electro-Bovie cautery was used to removed in total of 3 x 7 cm. Moderate undermining including superior and inferior flaps were created for tension-free complex closure. 0 Vicryl for the fascia and deep subcutaneous tissue. 3-0 Monocryl in a running subcuticular fashion was placed along the dermis. The skin was cleansed and Exofin tape with liquid was applied for a four layer closure. The incision was covered with Optifoam dressing. At the end of the procedure, needle, sponge, and instrument count was verified correct by surgical coder. The patient tolerated the procedure well. Plan - Discharge Summary Discharge Rx Participant: Yes New Discharge Prescriptions: New Acetaminophen Tab [Tylenol Tab] 1,000 mg PO Q6HR PRN #30 tablet PRN Reason: Pain Continue Pravastatin Sodium 20 mg PO HS Levothyroxine Sodium [Synthroid] 175 mcg PO DAILY Dutasteride [Avodart] 0.5 mg PO DAILY Tamsulosin [Flomax] 0.4 mg PO DAILY Arnica 120 ml TOPICAL Q48H Apixaban [Eliquis] 5 mg PO BID 30 Days #60 tab Omeprazole 20 mg PO QAM Technical Sme Analgesic Gel 1 applic TOPICAL Q48H Discharge Medication List Dutasteride [Avodart] 0.5 mg PO DAILY 06/08/16 [History] Levothyroxine Sodium [Synthroid] 175 mcg PO DAILY 06/08/16 [History] Pravastatin Sodium 20 mg PO HS 06/08/16 [History] Tamsulosin [Flomax] 0.4 mg PO DAILY 03/29/22 [History] Apixaban [Eliquis] 5 mg PO BID 30 Days #60 tab 05/18/22 [Rx] Arnica 120 ml TOPICAL Q48H 01/03/24 [History] Omeprazole 20 mg PO QAM 01/03/24 [History] Technical Sme Analgesic Gel 1 applic TOPICAL Q48H 01/03/24 [History] Acetaminophen Tab [Tylenol Tab] 1,000 mg PO Q6HR PRN #30 tablet 01/06/24 [Rx] Follow up Appointment(s)/Referral(s): Kay Trujillo MD [STAFF PHYSICIAN] - 01/10/24 11:00 am Activity/Diet/Wound Care/Special Instructions: DO NOT START BLOOD THINNER UNTIL 01/09/24 due to bleeding NO WIDE MOTIONS OF THE SHOULDERS/ARMS FOR 1 WEEK. NO EXTREME STRETCHING OF THE BACK See instructions on dressing. DO NOT REMOVE DRESSING. No lifting over 10 pounds in 2 weeks, January 19January shower. No bath tub soaks or swimming for two weeks January 19 Diet as tolerated. Discharge Disposition: HOME SELF-CARE
[2024-01-06 09:19] VITALS: TEMP 97.2
[2024-01-06 10:47] VITALS: BP 123/82; PULSE 60
== END | disposition home or self-care (01) ==
LOC: OR 05:34
PROVIDERS: ATTEND Surgery Plastic and Reconstructive Surgery
DX: L57.0 Actinic keratosis (principal); L72.0 Epidermal cyst; M19.90 Unspecified osteoarthritis, unspecified site; K21.9 Gastro-esophageal reflux disease without esophagitis; I48.91 Unspecified atrial fibrillation; I10 Essential (primary) hypertension; E78.5 Hyperlipidemia, unspecified; E03.9 Hypothyroidism, unspecified; Z79.01 Long term (current) use of anticoagulants; Z79.890 Hormone replacement therapy; Z79.899 Other long term (current) drug therapy; Z85.828 Personal history of other malignant neoplasm of skin; Z96.612 Presence of left artificial shoulder joint
CPT/HCPCS: 11606; 13101; 88305; J0330; J1644; J1100; J2405; J0690; J2001; J3010; J2704; J2371

== ENCOUNTER 2024-10-23 12:35 | Emergency (ER) | payer OTHER ==
[2024-10-23] MEDS: ACETAMINOPHEN TAB 500 MG TAB PO STA (13:29)
--- NOTE | 2024-10-23 13:43 | XR ---
EXAMINATION TYPE: XR chest 2V DATE OF EXAM: 10/23/2024 1:38 PM COMPARISON: Chest x-ray August 15, 2021 CLINICAL INDICATION: Male, 78 years old with history of COVID+, cough, TECHNIQUE: Frontal and lateral views of the chest are obtained. FINDINGS: There is no focal air space opacity, pleural effusion, or pneumothorax seen. The cardiac silhouette size is within normal limits. Surgical change to left shoulder is partially imaged. IMPRESSION: No acute pulmonary infiltrate. [facility], , 10/23/2024 1:41 PM
--- NOTE | 2024-10-23 13:48 | ED ---
General Adult HPI - General Chief complaint: Shortness of Breath Stated complaint: Covid+,ADRIANA Time Seen by Provider: 10/23/24 12:55 Source: patient, RN notes reviewed Mode of arrival: ambulatory Limitations: no limitations - History of Present Illness Initial comments: This is a 78-year-old male with a history of COPD, hypertension, and hyperlipidemia presented to emergency department with referral from urgent care for concern of positive COVID diagnosis. Patient states that over the past 2 to 3 days he has been experiencing congestion, postnasal drip, productive cough, body aches. Patient was tested positive at urgent care for COVID instruct reports emergency department with concern for low oxygen saturation. Patient denies shortness of breath, chest pain, heart palpitations, difficulty in breathing. - Related Data Home Medications Medication Instructions Recorded Confirmed Dutasteride [Avodart] 0.5 mg PO DAILY 06/08/16 01/06/24 Levothyroxine Sodium [Synthroid] 175 mcg PO DAILY 06/08/16 01/06/24 Pravastatin Sodium 20 mg PO HS 06/08/16 01/06/24 Tamsulosin [Flomax] 0.4 mg PO DAILY 03/29/22 01/06/24 Arnica 120 ml TOPICAL Q48H 01/03/24 01/06/24 Omeprazole 20 mg PO QAM 01/03/24 01/06/24 Cathode Ray Tube Assembler Analgesic Gel 1 applic TOPICAL Q48H 01/03/24 01/06/24 Previous Rx's Medication Instructions Recorded Apixaban [Eliquis] 5 mg PO BID 30 Days #60 tab 05/18/22 Acetaminophen Tab [Tylenol Tab] 1,000 mg PO Q6HR PRN #30 tablet 01/06/24 Allergies Allergy/AdvReac Type Severity Reaction Status Date / Time No Known Allergies Allergy Verified 10/23/24 12:52 Review of Systems ROS Statement: Those systems with pertinent positive or pertinent negative responses have been documented in the HPI. ROS Other: All systems not noted in ROS Statement are negative. Past Medical History Past Medical History: Hearing Disorder / Deafness, Hyperlipidemia, Hypertension, Osteoarthritis (OA), Thyroid Disorder Additional Past Medical History / Comment(s): Hx murmur. Tinnitus, bilateral hearing aid use. Hx kidney stones. History of Any Multi-Drug Resistant Organisms: None Reported Past Surgical History: Appendectomy, Joint Replacement Additional Past Surgical History / Comment(s): Thyroidectomy, left shoulder re placement. Past Anesthesia/Blood Transfusion Reactions: No Reported Reaction, Motion Sickness Additional Past Anesthesia/Blood Transfusion Reaction / Comment(s): Hx sea sickness X1 many yrs ago. Past Psychological History: PTSD Smoking Status: Never smoker Past Alcohol Use History: None Reported Past Drug Use History: None Reported - Past Family History Mother Family Medical History: No Reported History Father Family Medical History: Cancer General Exam Limitations: no limitations General appearance: alert, in no apparent distress Neck exam: Present: normal inspection. Absent: tenderness, meningismus, lymphadenopathy Respiratory exam: Present: normal lung sounds bilaterally. Absent: respiratory distress, wheezes, rales, rhonchi, stridor Cardiovascular Exam: Present: regular rate, normal rhythm, systolic murmur. Absent: normal heart sounds, diastolic murmur, rubs, gallop, clicks GI/Abdominal exam: Present: soft, normal bowel sounds. Absent: distended, tenderness, guarding, rebound, rigid Extremities exam: Present: normal inspection, full ROM, normal capillary refill. Absent: tenderness, pedal edema, joint swelling, calf tenderness Course Vital Signs 10/23/24 10/23/24 12:47 13:57 Temperature 99.7 F H 99 F Pulse Rate 88 87 Respiratory 20 16 Rate Blood Pressure 147/88 117/83 O2 Sat by Pulse 97 96 Oximetry Medical Decision Making - Medical Decision Making Was pt. sent in by a medical professional or institution (Dr. PA, HEALTH SAFETY SPECIALIST, urgent care, hospital, or fci...) When possible be specific @ -No Did you speak to anyone other than the patient for history (EMS, parent, family, police, friend...)? What history was obtained from this source @ -No Did you review nursing and triage notes (agree or disagree)? Why? @ -I reviewed and agree with nursing and triage notes Were old charts reviewed (outside hosp., previous admission, EMS record, old EKG, old radiological studies, urgent care reports/EKG's, fci records)? Report findings @ -No old charts were reviewed Differential Diagnosis (chest pain, altered mental status, abdominal pain women, abdominal pain men, vaginal bleeding, weakness, fever, dyspnea, syncope, headache, dizziness, GI bleed, back pain, seizure, CVA, palpatations, mental health, musculoskeletal)? @ -COVID 19, RSV, influenza, pneumonia, acute bronchitis, URI, this list is not all inclusive EKG interpreted by me (3pts min.). @ - X-rays interpreted by me (1pt min.). @ -Chest x-ray no acute cardiopulmonary process or disease. CT interpreted by me (1pt min.). @ -None done U/S interpreted by me (1pt. min.). @ -None done What testing was considered but not performed or refused? (CT, X-rays, U/S, labs)? Why? @ -None What meds were considered but not given or refused? Why? @ -None Did you discuss the management of the patient with other professionals (professionals i.e. , PA, HEALTH SAFETY SPECIALIST, lab, RT, psych nurse, social media coordinator, pet counselor, teacher, medical information officer, case resolution specialist)? Give summary @ -No Was smoking cessation discussed for >3mins.? @ -No Was critical care preformed (if so, how long)? @ -No Were there social determinants of health that impacted care today? How? (Homelessness, low income, unemployed, alcoholism, drug addiction, transportation, low edu. Level, literacy, decrease access to med. care, detention, rehab)? @ -No Was there de-escalation of care discussed even if they declined (Discuss DNR or withdrawal of care, Hospice)? DNR status @ -No What co-morbidities impacted this encounter? (DM, HTN, Smoking, COPD, CAD, Cancer, CVA, ARF, Chemo, Hep., AIDS, mental health diagnosis, sleep apnea, morbid obesity)? @ -None Was patient admitted / discharged? Hospital course, mention meds given and route, prescriptions, significant lab abnormalities, going to OR and other pertinent info. @ - Discharge. ER male presenting with recent COVID diagnosis. Patient's vitals are stable on arrival. On my evaluation is resting company no signs acute distress. His oxygen saturation high 90s. Chest x-ray is unremarkable. Reevaluation patient's vitals are stable. Recommend that patient continue supportive treatment at home and follow-up with his primary care provider report back to emergency room for any new or worsening symptoms. Case discussed with Dr. Katz Undiagnosed new problem with uncertain prognosis? @ -No Drug Therapy requiring intensive monitoring for toxicity (Heparin, Nitro, Insulin, Cardizem)? @ -No Were any procedures done? @ -No Diagnosis/symptom? @ -COVID-19 Acute, or Chronic, or Acute on Chronic? @ -Acute Uncomplicated (without systemic symptoms) or Complicated (systemic symptoms)? @ -Uncomplicated Side effects of treatment? @ -No Exacerbation, Progression, or Severe Exacerbation? @ -No Poses a threat to life or bodily function? How? (Chest pain, USA, CT, pneumonia, PE, COPD, DKA, ARF, appy, cholecystitis, CVA, Diverticulitis, Homicidal, Suicidal, threat to staff... and all critical care pts) @ -No Disposition Clinical Impression: COVID-19 Disposition: HOME SELF-CARE Condition: Good Instructions (If sedation given, give patient instructions): COVID-19 (Coronavirus Disease 2019) (ED) Additional Instructions: Please return to the Emergency Department if symptoms worsen or any other concerns. Is patient prescribed a controlled substance at d/c from ED?: No Referrals: Juilan Cheng MD [Primary Care Provider] - 1-2 days
[2024-10-23 13:58] VITALS: BP 117/83; PULSE 87; RESP 16; TEMP 99
== END 2024-10-23 14:06 | disposition home or self-care (01) ==
LOC: EC 12:35
DX: U07.1 COVID-19 (principal)
CPT/HCPCS: 71046; 99284

== ENCOUNTER 2024-12-13 09:36 | Emergency (ER) | payer OTHER ==
[2024-12-13] MEDS: ACETAMINOPHEN TAB 500 MG TAB PO STA (10:22)
--- NOTE | 2024-12-13 10:23 | ED ---
General Adult HPI - General Chief complaint: Head Injury Stated complaint: fall, head injury Time Seen by Provider: 12/13/24 09:55 Source: patient, RN notes reviewed, old records reviewed Mode of arrival: ambulatory Limitations: no limitations - History of Present Illness Initial comments: Patient is an 79-year-old male who presents emergency department complaining of headaches, lightheadedness, occasional issues with gait. States all the s ymptoms started 2 weeks ago when he slipped on ice and struck the back of his head on the ground. He was never evaluated. Does have a history of atrial fibrillation and is on blood thinners, Eliquis. States it is more or less been ongoing for the last 2 weeks. No known palliative or provocative factors. Also has a history of hyperlipidemia. Denies any back pain, chest pain, abdominal pain, nausea, vomiting. Denies shortness of breath. Was never evaluated after the previous fall. Presents today for further evaluation. Concern for possible head injury from the fall 2 weeks ago. States he did not lose consciousness when he did fall 2 weeks ago. He has been compliant with his blood thinning medication. Has been taking Motrin for analgesia at home. - Related Data Home Medications Medication Instructions Recorded Confirmed Dutasteride [Avodart] 0.5 mg PO DAILY 06/08/16 01/06/24 Levothyroxine Sodium [Synthroid] 175 mcg PO DAILY 06/08/16 01/06/24 Pravastatin Sodium 20 mg PO HS 06/08/16 01/06/24 Tamsulosin [Flomax] 0.4 mg PO DAILY 03/29/22 01/06/24 Arnica 120 ml TOPICAL Q48H 01/03/24 01/06/24 Omeprazole 20 mg PO QAM 01/03/24 01/06/24 Light Fixture Servicer Analgesic Gel 1 applic TOPICAL Q48H 01/03/24 01/06/24 Previous Rx's Medication Instructions Recorded Apixaban [Eliquis] 5 mg PO BID 30 Days #60 tab 05/18/22 Acetaminophen Tab [Tylenol Tab] 1,000 mg PO Q6HR PRN #30 tablet 01/06/24 Allergies Allergy/AdvReac Type Severity Reaction Status Date / Time No Known Allergies Allergy Verified 12/13/24 09:41 Review of Systems ROS Statement: Those systems with pertinent positive or pertinent negative responses have been documented in the HPI. Review of Systems: CONST: Denies fever EYES: Denies blurry vision ENT: Denies nasal congestion C/V: Denies Chest pain RESP: Denies shortness of breath GI: Denies abdominal pain : Denies dysuria SKIN: Denies rash. MSK: Denies joint pain. NEURO: Endorses headache ROS Other: All systems not noted in ROS Statement are negative. Past Medical History Past Medical History: Hearing Disorder / Deafness, Hyperlipidemia, Hypertension, Osteoarthritis (OA), Thyroid Disorder Additional Past Medical History / Comment(s): Hx murmur. Tinnitus, bilateral hearing aid use. Hx kidney stones. History of Any Multi-Drug Resistant Organisms: None Reported Past Surgical History: Appendectomy, Joint Replacement Additional Past Surgical History / Comment(s): Thyroidectomy, left shoulder replacement. Past Anesthesia/Blood Transfusion Reactions: No Reported Reaction, Motion Sickness Additional Past Anesthesia/Blood Transfusion Reaction / Comment(s): Hx sea sickness X1 many yrs ago. Past Psychological History: PTSD Smoking Status: Never smoker Past Alcohol Use History: None Reported Past Drug Use History: None Reported - Past Family History Mother Family Medical History: No Reported History Father Family Medical History: Cancer General Exam - General Exam Comments Initial Comments: General: Appears in no acute distress. HEAD: Normal with no signs of head trauma. Negative Godfrey sign. Negative raccoon eyes. EYES: PERRLA, EOMI, conjunctiva normal, no discharge. Pupils are 3 mm and equal bilaterally. ENT: Hearing grossly intact, normal oropharynx. RESPIRATORY: Clear breath sounds bilaterally. No wheezes, rales, or rhonchi. C/V: Regular rate and rhythm. S1 and S2 auscultated, no edema, peripheral pulses 2+ and intact throughout ABD: Abd is soft, nontender, nondistended EXT: Normal range of motion, no obvious deformity. Pelvis is stable. No spinal tenderness to palpation. SKIN: No rashes or lesions observed on exposed skin. NEURO: Alert and oriented x 4. Cranial nerves II-XII intact. No focal sensory or strength deficits. No focal neurological deficits. Able to ambulate. Romberg negative. GCS of 15. NIH of 0. Limitations: no limitations Course Vital Signs 12/13/24 12/13/24 12/13/24 09:38 11:12 13:14 Temperature 97.7 F 98.0 F Pulse Rate 65 54 L 58 L Respiratory 18 20 20 Rate Blood Pressure 122/87 124/68 128/68 O2 Sat by Pulse 97 99 Oximetry Medical Decision Making - Medical Decision Making Was pt. sent in by a medical professional or institution (ANGELINA Owens, WOOD CAULKER, urgent care, hospital, or residential...) When possible be specific @ -No Did you speak to anyone other than the patient for history (EMS, parent, family, police, friend...)? What history was obtained from this source @ -No Did you review nursing and triage notes (agree or disagree)? Why? @ -I reviewed and agree with nursing and triage notes Were old charts reviewed (outside hosp., previous admission, EMS record, old EKG, old radiological studies, urgent care reports/EKG's, residential records)? Report findings @ -Old charts reviewed confirming patient's history of A-fib as well as being on Eliquis. Differential Diagnosis (chest pain, altered mental status, abdominal pain women, abdominal pain men, vaginal bleeding, weakness, fever, dyspnea, syncope, headache, dizziness, GI bleed, back pain, seizure, CVA, palpatations, mental health, musculoskeletal)? @ -Concussion, head injury, brain bleed, dehydration. This list is not all inclusive. EKG interpreted by me (3pts min.). @ -As above X-rays interpreted by me (1pt min.). @ -Chest x-ray and pelvis x-ray negative for any obvious acute traumatic injury. CT interpreted by me (1pt min.). @ -CT brain and CT angiogram head and neck negative for any obvious acute traumatic injury. No evidence of brain bleed. Chronic findings present including degeneration. No large vessel occlusion appreciated on angiography. Chronic degeneration of the cervical spine. U/S interpreted by me (1pt. min.). @ -None done What testing was considered but not performed or refused? (CT, X-rays, U/S, labs)? Why? @ -None What meds were considered but not given or refused? Why? @ -None Did you discuss the management of the patient with other professionals (professionals i.e. ANGELINA Owens, WOOD CAULKER, lab, RT, psych nurse, medical social consultant, parachute rigger, teacher, community liaison officer, bottle caser)? Give summary @ -No Was smoking cessation discussed for >3mins.? @ -No Was critical care preformed (if so, how long)? @ -No Were there social determinants of health that impacted care today? How? (Homelessness, low income, unemployed, alcoholism, drug addiction, transport ation, low edu. Level, literacy, decrease access to med. care, halfway, rehab)? @ -No Was there de-escalation of care discussed even if they declined (Discuss DNR or withdrawal of care, Hospice)? DNR status @ -No What co-morbidities impacted this encounter? (DM, HTN, Smoking, COPD, CAD, Cancer, CVA, ARF, Chemo, Hep., AIDS, mental health diagnosis, sleep apnea, morbid obesity)? @ -None Was patient admitted / discharged? Hospital course, mention meds given and route, prescriptions, significant lab abnormalities, going to OR and other pertinent info. @ -Based on the patient's presentation and physical exam, presents emergency department complaining of possible head injury. Fell 2 weeks ago. Does not meet criteria for trauma activation based on time of injury. Does not meet criteria for code coag based on time of injury. We will obtain CT brain and C- spine as well as basic labs and screening EKG. He will be given IV fluids. Patient was in agreement this plan. He is given Tylenol for analgesia. Vitals are within acceptable limits.Imaging including CT imaging negative for any obvious traumatic injury including negative for brain bleeds. Laboratory studies returned unremarkable. EKG unremarkable. On reevaluation, after the patient. He felt relief. Following Tylenol, pain w as improved. I discussed with the patient to avoid NSAIDs moving forward as he is on a blood thinner and NSAIDs also can increase risk of bleeding. He was in agreement. I also counseled the patient that if he has a significant head injury like he did today, he should be evaluated immediately rather than wait 2 weeks. He was in agreement this plan. Diagnosis today is likely concussion. Recommend follow-up with his PCP in the next 1 to 3 days. Return if any worsening symptoms. He was in agreement the plan. I instructed the patient to follow up with their PCP in the next 1-3 days. I explained that the patient should return to the emergency department if they experience any worsening symptoms. Strict return precautions were discussed with the patient. The patient expressed understanding of these instructions. I answered all questions that the patient had. The patient was discharged home in good condition with their prescriptions and follow up information. Undiagnosed new problem with uncertain prognosis? @ -No Drug Therapy requiring intensive monitoring for toxicity (Heparin, Nitro, Insulin, Cardizem)? @ -No Were any procedures done? @ -No Diagnosis/symptom? @ -Concussion, fall Acute, or Chronic, or Acute on Chronic? @ -Acute Uncomplicated (without systemic symptoms) or Complicated (systemic symptoms)? @ -Uncomplicated Side effects of treatment? @ -None Exacerbation, Progression, or Severe Exacerbation] @ -No Poses a threat to life or bodily function? @ -Unlikely at this time - Lab Data Result diagrams: 12/13/24 10:12 12/13/24 10:12 Lab Results 12/13/24 12/13/24 12/13/24 Range/Units 10:12 10:12 10:12 WBC 4.4 (3.8-10.6) k/uL RBC 4.82 (4.30-5.90) m/uL Hgb 14.5 (13.0-17.5) gm/dL Hct 45.4 (39.0-53.0) % MCV 94.1 (80.0-100.0) fL MCH 30.2 (25.0-35.0) pg MCHC 32.0 (31.0-37.0) g/dL RDW 12.8 (11.5-15.5) % Plt Count 171 (150-450) k/uL MPV 8.5 Neutrophils % 54 % Lymphocytes % 36 % Monocytes % 5 % Eosinophils % 2 % Basophils % 1 % Neutrophils # 2.4 (1.3-7.7) k/uL Lymphocytes # 1.6 (1.0-4.8) k/uL Monocytes # 0.2 (0-1.0) k/uL Eosinophils # 0.1 (0-0.7) k/uL Basophils # 0.0 (0-0.2) k/uL PT 11.7 (10.0-12.5) sec INR 1.1 (<1.2) APTT 26.0 (22.0-30.0) sec Sodium 138 (137-145) mmol/L Potassium 4.3 (3.5-5.1) mmol/L Chloride 103 (98-107) mmol/L Carbon Dioxide 30 (22-30) mmol/L Anion Gap 5 mmol/L BUN 17 (9-20) mg/dL Creatinine 0.68 (0.66-1.25) mg/dL Est GFR (CKD-EPI)AfAm >90 (>60 ml/min/1.73 sqM) Est GFR (CKD-EPI)NonAf 90 (>60 ml/min/1.73 sqM) Glucose 86 (74-99) mg/dL Calcium 8.7 (8.4-10.2) mg/dL Magnesium 2.1 (1.6-2.3) mg/dL Total Bilirubin 0.9 (0.2-1.3) mg/dL AST 27 (17-59) U/L ALT 14 (4-49) U/L Alkaline Phosphatase 58 (38-126) U/L Total Protein 6.2 L (6.3-8.2) g/dL Albumin 3.7 (3.5-5.0) g/dL Blood Type Blood Type Confirm Blood Type Recheck Bld Type Recheck Status Antibody Screen Spec Expiration Date 12/13/24 12/13/24 Range/Units 10:24 11:16 WBC (3.8-10.6) k/uL RBC (4.30-5.90) m/uL Hgb (13.0-17.5) gm/dL Hct (39.0-53.0) % MCV (80.0-100.0) fL MCH (25.0-35.0) pg MCHC (31.0-37.0) g/dL RDW (11.5-15.5) % Plt Count (150-450) k/uL MPV Neutrophils % % Lymphocytes % % Monocytes % % Eosinophils % % Basophils % % Neutrophils # (1.3-7.7) k/uL Lymphocytes # (1.0-4.8) k/uL Monocytes # (0-1.0) k/uL Eosinophils # (0-0.7) k/uL Basophils # (0-0.2) k/uL PT (10.0-12.5) sec INR (<1.2) APTT (22.0-30.0) sec Sodium (137-145) mmol/L Potassium (3.5-5.1) mmol/L Chloride (98-107) mmol/L Carbon Dioxide (22-30) mmol/L Anion Gap mmol/L BUN (9-20) mg/dL Creatinine (0.66-1.25) mg/dL Est GFR (CKD-EPI)AfAm (>60 ml/min/1.73 sqM) Est GFR (CKD-EPI)NonAf (>60 ml/min/1.73 sqM) Glucose (74-99) mg/dL Calcium (8.4-10.2) mg/dL Magnesium (1.6-2.3) mg/dL Total Bilirubin (0.2-1.3) mg/dL AST (17-59) U/L ALT (4-49) U/L Alkaline Phosphatase (38-126) U/L Total Protein (6.3-8.2) g/dL Albumin (3.5-5.0) g/dL Blood Type O Positive Blood Type Confirm O Positive Blood Type Recheck No Previous Record Bld Type Recheck Status CABO Indicated Antibody Screen NEGATIVE Spec Expiration Date 12/16/20242323 - EKG Data -: EKG Interpreted by Me EKG Comments: 12-lead Electrocardiogram Interpretation Note EKG was reviewed and interpreted by myself. 12-lead ECG performed at 1019 is interpreted by me as revealing atrial fibrillation at a rate of 64 beats per minute. Left axis deviation. QRS duration is 118 ms, QTc is down to 28 ms. There were no ST or T wave abnormalities to suggest myocardial ischemia or injury. R wave progression across the precordium was satisfactory. By my interpretation this EKG is non-diagnostic for acute ischemia. Disposition Clinical Impression: Concussion, Fall Disposition: HOME SELF-CARE Condition: Good Instructions (If sedation given, give patient instructions): Concussion (ED) Is patient prescribed a controlled substance at d/c from ED?: No Referrals: Julian Cheng MD [Primary Care Provider] - 1-2 days Time of Disposition: 13:00
[2024-12-13 10:34] LABS: Basophils % (A) 1 %; Eosinophils # (A) 0.1 k/uL (0-0.7); Eosinophils % (A) 2 %; HCT 45.4 % (39.0-53.0); HGB 14.5 gm/dL (13.0-17.5); Lymphocytes # (A) 1.6 k/uL (1.0-4.8); Lymphocytes % (A) 36 %; MCH 30.2 pg (25.0-35.0); MCV 94.1 fL (80.0-100.0); Mean Platelet Volume 8.5; Monocytes # (A) 0.2 k/uL (0-1.0); Monocytes % (A) 5 %; Neutrophils # (A) 2.4 k/uL (1.3-7.7); Neutrophils % (A) 54 %; Platelet Count 171 k/uL (150-450); RBC 4.82 m/uL (4.30-5.90); RDW 12.8 % (11.5-15.5); WBC 4.4 k/uL (3.8-10.6)
[2024-12-13 10:57] LABS: INR 1.1 (<1.2); Prothrombin Time 11.7 sec (10.0-12.5)
--- NOTE | 2024-12-13 10:58 | XR ---
EXAMINATION TYPE: XR chest 1V portable DATE OF EXAM: 12/13/2024 10:51 AM COMPARISON: Chest radiographs from 10/23/2024 CLINICAL INDICATION: Male, 79 years old with history of fall; [facility] TECHNIQUE: XR chest 1V portable Frontal view of the chest. FINDINGS: Lungs/Pleura: There is no evidence of pleural effusion, focal consolidation, or pneumothorax. Pulmonary vascularity: Unremarkable. Heart/mediastinum: Cardiomediastinal silhouette is unremarkable. Musculoskeletal: No acute osseous pathology. Left shoulder arthroplasty appears intact. Other findings: None IMPRESSION: No acute cardiopulmonary disease/process. [facility], , 12/13/2024 10:56 AM
--- NOTE | 2024-12-13 10:58 | CT ---
EXAMINATION TYPE: CT brain cspine wo con DATE OF EXAM: 12/13/2024 10:50 AM COMPARISON: 12/13/2023. CLINICAL INDICATION: Male, 79 years old with history of fall; Fall 2 weeks ago, Dizziness, light head ed, pain TECHNIQUE: Brain: Multiple axial CT images of the brain were obtained without IV contrast. Cspine: Axial CT images from the skull base to the inferior aspect of T2 we obtained without intraven ous contrast. Coronal and sagittal reformatted images were also reviewed. . CT DLP: 1508.3 mGycm, Automated exposure control for dose reduction was used. FINDINGS: Brain: Extra-axial spaces: No abnormal extra-axial fluid collections. Ventricular system: Dilatation in proportion to cerebral atrophy. Cerebral parenchyma: Cerebral atrophy. No acute intraparenchymal hemorrhage or mass effect. The carvajal -white junction is well differentiated. Scattered hypoattenuating areas are seen within the white mat ter. Cerebellum: Unremarkable. Mass effect: No evidence of midline shift. Intracranial vasculature: Atherosclerotic calcifications of the intracranial vessels. Soft tissues: Normal. Calvarium/osseous structures: No depressed skull fracture. Paranasal sinuses and mastoid air cells: Clear. Visualized orbits: Orbital contents are intact. Cervical spine: Fracture: None. Osseous structures: Multilevel degenerative disc disease changes with endplate spurring and disc oste ophyte complex's. Vertebral alignment: Within normal limits. Spinal canal/Neural Foramina: Disc osteophyte complexes at C5-C6 and C7. With at least mild spinal ca nal stenosis. Facet joint uncovertebral joint arthropathy scattered throughout the cervical spine wit h varying degrees of neural foraminal stenosis. Severe neural foraminal stenosis at bilateral C5-C6 a nd C6-C7. Neck soft tissues: Prevertebral soft tissues are within normal limits. Other: The airway is patent. The lung apices are clear. IMPRESSION: No acute intracranial process. Nonspecific white matter changes, likely secondary to chronic small vessel ischemic disease. No evidence of cervical spine fracture. Moderate to severe multilevel degenerative disc disease. Severe bilateral neural foraminal stenosis C5-C6 and C6-C7. [facility], , 12/13/2024 10:56 AM
--- NOTE | 2024-12-13 11:00 | XR ---
EXAMINATION TYPE: XR pelvis AP view DATE OF EXAM: 12/13/2024 10:51 AM COMPARISON: None CLINICAL INDICATION: Male, 79 years old with history of fall; pain [facility] TECHNIQUE: XR pelvis AP view, examined in a single projection. FINDINGS: There is no evidence of fracture or dislocation. There is no soft tissue abnormality. No a bnormal calcifications are present. The spine appears intact. The hips appear intact. Osteophyte form ation of the superior acetabulum bilaterally with mild to moderate joint space narrowing. IMPRESSION: No acute osseous pathology. Mild degeneration changes of the hip. [facility], , 12/13/2024 10:58 AM
[2024-12-13 11:02] LABS: ALT 14 U/L (4-49); AST 27 U/L (17-59); African American GFR (CKD) >90 (>60 ml/min/1.73 sqM); Albumin 3.7 g/dL (3.5-5.0); Alkaline Phosphatase 58 U/L (38-126); Anion Gap 5 mmol/L; Blood Urea Nitrogen 17 mg/dL (9-20); Calcium 8.7 mg/dL (8.4-10.2); Carbon Dioxide 30 mmol/L (22-30); Chloride 103 mmol/L (98-107); Glucose 86 mg/dL (74-99); Magnesium 2.1 mg/dL (1.6-2.3); Non-African American GFR(CKD) 90 (>60 ml/min/1.73 sqM); Potassium 4.3 mmol/L (3.5-5.1); Sodium 138 mmol/L (137-145); Total Bilirubin 0.9 mg/dL (0.2-1.3); Total Protein 6.2 g/dL (6.3-8.2)
[2024-12-13 11:17] VITALS: RESP 20
--- NOTE | 2024-12-13 12:30 | CT ---
EXAMINATION TYPE: CT angio head neck DATE OF EXAM: 12/13/2024 12:11 PM COMPARISON: 12/13/2024. 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 Axi al images are supplemented with 3D reconstructions and MIP images which were post-processed at an in dependent workstation. NASCET criteria used. Contrast used:65 ml mL of Isovue 370 without and with IV Contrast, Oral contrast used: None. CT DLP: 616.2 mGycm, Automated exposure control for dose reduction was used. FINDINGS: CTA HEAD: No evidence of acute intracranial hemorrhage, mass effect, or midline shift. The ventricles, sulci, a nd cisterns are unremarkable. Vertebral arteries: The vertebral arteries are patent. Vertebral artery dominance: Codominant Basilar artery: The basilar artery is intact. The basilar artery bifurcation is normal. Internal Carotid arteries: The cervical, petrous, cavernous and supraclinoid segments are normal. JOSS: Patent with no evidence of aneurysm. ACOM: Present without evidence of aneurysm. MCA: Patent with no evidence of aneurysm. P[employer]: Patent with no evidence of aneurysm. PCOM: Hypoplastic bilaterally. Dural sinuses: Patent. CTA NECK: Right Carotid System: The common carotid and external carotid arteries are patent. There is less than 25% stenosis at the c arotid bifurcation secondary to calcified/noncalcified plaque. The rest of the internal carotid arter y is patent. Left Carotid System: The common carotid and external carotid arteries are patent. There is less than 25% stenosis at the c arotid bifurcation secondary to calcified/noncalcified plaque. The rest of the internal carotid arter y is patent. Vertebral arteries are patent without evidence hemodynamically significant stenosis. There is a three-vessel aortic arch. The origins of the great vessels are patent. No evidence of hemo dynamically significant stenosis. Upper thorax: Calcified granuloma in the right anterior upper lung. IMPRESSION: 1. Poor bolus timing limits evaluation. No evidence of dissection of the cervical internal carotid a rteries or vertebral arteries. 2. No any evidence of significant stenosis at the carotid bifurcations. 3. No evidence of intracranial high-grade stenosis or intracranial aneurysm. 4. Sequela of granulomatous disease with calcified pulmonary nodules. [facility], , 12/13/2024 12:28 PM
[2024-12-13 13:17] VITALS: BP 128/68; PULSE 58; TEMP 98
== END 2024-12-13 13:17 | disposition home or self-care (01) ==
LOC: EC 09:36
DX: S06.0X0A Concussion without loss of consciousness, initial encounter (principal); W00.0XXA Fall on same level due to ice and snow, initial encounter
CPT/HCPCS: 36415; 93005; 86900; 86901; 80053; 83735; 85025; 85610; 85730; 86850; 72170; 71045; 72125; 70496; 70450; 70498; 99284; Q9967